=== PATIENT | male | born 1960 | race Caucasian/White ===

== ENCOUNTER → 2018-01-18 | Outpatient (CLI) | payer BC ==
[~2018-01-18] MED LIST: AMLO10TA4 PO; ASP81TEC PO; B 12; DCS100C PO; FAMO-106 PO; FAMO20TA5 PO; FLC1T PO; FOLI0.4T2 PO; HYDR-34 PO; LISINOPRIL; LVT.05T PO; METH4TAB PO; MTP100TCR PO; Metoprolol Succinate PO; NO HOME MEDS; OXYCODONE; VALP250C PO; VITA1TAB16 PO
--- NOTE | 2018-01-18 13:06 | Diagnostic Imaging Report ---
PROCEDURE: CT abdomen and pelvis without contrast. TECHNIQUE: Multiple contiguous axial images were obtained through the abdomen and pelvis without the use of intravenous contrast. INDICATION: Abdominal distention with elevated liver function test. COMPARISON: CT abdomen and pelvis of 07/17/14. FINDINGS: Evaluation of the abdominal viscera is mildly limited without contrast. Lower chest: There are multiple round pulmonary nodules of varying size within the lung bases most compatible with metastases. Peritoneum: A small volume of complex fluid is present throughout the abdomen. Additionally, there are multiple soft tissue peritoneal implants indicative of peritoneal carcinomatosis. Liver and biliary system: There are numerous hypodensities throughout the liver that are all new and too numerous to count. These are most compatible with extensive hepatic metastatic disease. The gallbladder is normal. No biliary duct dilation. Spleen and Pancreas: Spleen is normal. Unchanged marked diffuse dilation of the pancreatic duct. Calcifications of the parenchyma of the pancreas are also unchanged and likely due to chronic pancreatitis. Adrenals: Normal. tract: No renal or ureteral calculi. No obstructive uropathy. Prostate is not enlarged. GI tract: Stomach is decompressed. No bowel obstruction. No pericolonic inflammatory changes. The majority of the colon is decompressed and there is no discrete focal wall thickening, though colonic mass could be obscured on this exam. Vasculature and Lymph nodes: Multiple enlarged upper abdominal lymph nodes are present. This includes lymphadenopathy in the araseli hepatis, celiac axis, superior mesenteric axis and along the retroperitoneum. The dominant lymph node at the level of the celiac axis measures 2.2 x 2.4 cm. Musculoskeletal: No concerning osseous lesion. IMPRESSION: 1. Metastatic disease within the lower chest and abdomen. This includes extensive liver metastases, peritoneal carcinomatosis and pulmonary nodules. The most likely source is from the GI tract or pancreas. Multifocal and metastatic hepatocellular carcinoma could potentially have this appearance as well. However, biopsy will be required for definitive diagnosis. 2. Changes of chronic pancreatitis are stable since 07/17/2014. Findings were discussed with Deepak Junior by Dr. Acosta Amador at 12:57 PM on 01/18/2018. Dictated by: Dictated on workstation # [id number]
== END ==
LOC: RAD 10:42
PROVIDERS: ATTEND Nurse Practitioner Family
DX: C78.7 Secondary malignant neoplasm of liver and intrahepatic bile duct (principal); C80.1 Malignant (primary) neoplasm, unspecified; R91.8 Other nonspecific abnormal finding of lung field; K86.1 Other chronic pancreatitis
CPT/HCPCS: 74176

== ENCOUNTER 2018-01-29 06:52 | Outpatient (CLI) | payer BC ==
[2018-01-29] VITALS (8 sets, daily range): BP systolic 135–151; BP diastolic 75–89
[~2018-01-29] VITALS: Ht 182.9 cm; Wt 70.5 kg
[2018-01-29] MEDS ORDERED: LIDOCAINE 1% INJ 20 ML 20 ML VIAL ONE (07:20)
[2018-01-29] MEDS ORDERED: LIDOCAINE 1% INJ 20 ML 20 ML VIAL INJ ONE (07:30)
[2018-01-29 07:36] LABS: BASOPHILS # (AUTO) 0.1 10^3/uL (0.0-0.1); BASOPHILS % (AUTO) 1 % (0-10); EOSINOPHILS # (AUTO) 0.1 10^3/uL (0.0-0.3); EOSINOPHILS % (AUTO) 1 % (0-10); HEMATOCRIT 31 % (40-54); HEMOGLOBIN 11.3 G/DL (13.3-17.7); LYMPHOCYTES # (AUTO) 0.7 X 10^3 (1.0-4.0); LYMPHOCYTES % (AUTO) 7 % (12-44); MEAN CORPUSCULAR HEMOGLOBIN 29 PG (25-34); MEAN CORPUSCULAR HGB CONC 36 G/DL (32-36); MEAN CORPUSCULAR VOLUME 81 FL (80-99); MEAN PLATELET VOLUME 9.9 FL (7.4-10.4); MONOCYTES # (AUTO) 1.7 X 10^3 (0.0-1.0); MONOCYTES % (AUTO) 15 % (0-12); NEUTROPHILS # (AUTO) 8.4 X 10^3 (1.8-7.8); NEUTROPHILS % (AUTO) 77 % (42-75); PLATELET COUNT 579 10^3/uL (130-400); RED BLOOD COUNT 3.84 10^6/uL (4.35-5.85)
[2018-01-29 07:47] LABS: INR 1.2 (0.8-1.4); PROTHROMBIN TIME PATIENT 15.6 SEC (12.2-14.7)
[2018-01-29 08:27] LABS: ANISOCYTOSIS SLIGHT; BAND NEUTROPHILS 0 %; BASOPHILS % (MANUAL) 1 %; EOSINOPHILS % (MANUAL) 0 %; LYMPHOCYTES % (MANUAL) 7 %; MONOCYTES % (MANUAL) 15 %; NEUTROPHILS % (MANUAL) 77 %
[2018-01-29] MEDS ORDERED: HYDROcodone/APAP 5 MG/325 MG (LORTAB) TAB PO PRN (08:30)
--- NOTE | 2018-01-29 08:55 | Pre-Procedure Progress Note ---
Pre-Procedure Progress Note H&P Reviewed The H&P was reviewed, patient examined and no changes noted. Date H&P Reviewed: Jan 29, 2018 Time H&P Reviewed: 08:00 Pre-Procedure Diagnosis: Liver masses LAURA HARTLEY MD Jan 29, 2018 08:55
--- NOTE | 2018-01-29 09:02 | Diagnostic Imaging Report ---
INDICATION: Multiple liver masses. Patient presents for CT-guided biopsy. Patient was brought to the CT suite, placed on the table in the supine position. Axial imaging through the abdomen was performed to evaluate appropriate entry site. The skin of the midline anterior abdomen was prepped and draped in usual sterile fashion. Small amount of 1% lidocaine was utilized for local anesthesia. An 18-gauge coaxial Temno needle was advanced into the left lobe of the liver. 3-4 core biopsies were obtained. The needle was then repositioned and placed in different spot in the left lobe more midline and 3-4 additional core biopsies were obtained. Needle was withdrawn and hemostasis was obtained using manual compression. Patient tolerated the procedure well and left the department in stable condition. IMPRESSION: Successful CT-guided core biopsy of multiple left lobe liver masses. Pathology results are currently pending. Dictated by: Dictated on workstation # [id number]
== END 2018-01-29 10:25 | disposition home or self-care (01) ==
LOC: SDC 06:52
PROVIDERS: ATTEND Surgery
DX: C22.8 Malignant neoplasm of liver, primary, unspecified as to type (principal); R14.0 Abdominal distension (gaseous); R53.83 Other fatigue; I10 Essential (primary) hypertension; Z87.891 Personal history of nicotine dependence
CPT/HCPCS: 36415; 77012; 85007; 85027; 85610; 85730

== ENCOUNTER → 2018-02-05 | Outpatient (CLI) | payer BC | LOC: LAB 15:33 | PROVIDERS: ATTEND Surgery | DX: C22.8 Malignant neoplasm of liver, primary, unspecified as to type (principal) | CPT/HCPCS: 36415; 82105 ==

== ENCOUNTER 2018-02-08 10:03 | Outpatient (RCR) | payer BC ==
[2018-02-17] MEDS ORDERED: morphine INJ 10 MG/ML 1ML (SYR OR VIAL) ONE (11:11)
[2018-02-17] MEDS ORDERED: HYDROmorphone 2 MG/ML VIAL (DILAUDID) ONE (11:41)
[2018-02-22] MEDS ORDERED: HYDR-3812 PO (19:46)
[2018-02-22] MEDS ORDERED: ALPR0.254 PO (19:46)
[2018-02-23] MEDS ORDERED: AMLO10TA6 PO (10:21)
[2018-02-23] MEDS ORDERED: BUDE10.2 IH (10:21)
[2018-02-23] MEDS ORDERED: DOCU-143 PO (10:21)
[2018-02-23] MEDS ORDERED: ZOLP5TAB PO (10:21)
[2018-02-23] MEDS ORDERED: SORA200T PO (10:34)
[2018-03-03] MEDS ORDERED: HYDR-3812 PO (09:30)
[2018-03-03] MEDS ORDERED: LORA2ORA PO (09:30)
[2018-03-03] MEDS ORDERED: LORA0.5T PO (09:30)
[2018-03-03] MEDS ORDERED: MORP100S3 PO (09:30)
== END 2018-02-26 | disposition home or self-care (01) ==
LOC: ONC 10:03
PROVIDERS: ATTEND Internal Medicine Hematology & Oncology
DX: C80.0 Disseminated malignant neoplasm, unspecified (principal); C78.00 Secondary malignant neoplasm of unspecified lung; C78.7 Secondary malignant neoplasm of liver and intrahepatic bile duct; C78.6 Secondary malignant neoplasm of retroperitoneum and peritoneum; K86.1 Other chronic pancreatitis; F10.20 Alcohol dependence, uncomplicated; I10 Essential (primary) hypertension; F41.9 Anxiety disorder, unspecified
CPT/HCPCS: 99214

== ENCOUNTER 2018-02-09 15:19 | Emergency (ER) | payer BC ==
[~2018-02-09] VITALS: Ht 182.9 cm; Wt 77.1 kg
--- OUTSIDE RECORDS SUMMARY | 2018-02-09 15:25 | XMS REPORT | Continuity of Care Document ---
Author Author [facility] Organization [facility] Address Unknown Phone Unavailable Allergies Active Description Code Type Severity Reaction Onset Reported/Identified Relationship to Patient Clinical Status Yes No Known Drug Allergies [id number] Drug Allergy Unknown N/A 01/23/2010 Medications There is no data. Problems Date Dx Coded Attending Type Code Diagnosis Diagnosed By 07/18/2014 HEIDI MEDELLIN, LOU Marquez Ot 276.1 07/18/2014 HEIDI MEDELLIN, LOU Marquez Ot 305.01 07/18/2014 HEIDI MEDELLIN, LOU Marquez Ot 305.1 07/18/2014 HEIDI MEDELLIN, LOU Marquez Ot 401.9 07/18/2014 HEIDI MEDELLIN, LOU Marquez Ot 577.1 07/18/2014 HEIDI MEDELLIN, LOU K Ot 276.1 07/18/2014 HEIDI MEDELLIN, LOU K Ot 305.01 07/18/2014 HEIDI MEDELLIN, LOU K Ot 305.1 07/18/2014 HEIDI MEDELLIN, LOU K Ot 401.9 07/18/2014 HEIDI MEDELLIN, LOU Marquez Ot 577.1 07/19/2014 HEIDI MEDELLIN, LOU K Ot 276.1 07/19/2014 HEIDI MEDELLIN, LOU K Ot 305.01 07/19/2014 HEIDI MEDELLIN, LOU K Ot 305.1 07/19/2014 HEIDI MEDELLIN, LOU K Ot 401.9 07/19/2014 HEIDI MEDELLIN, LOU K Ot 577.0 07/19/2014 HEIDI MEDELLIN, LOU K Ot 577.1 10/28/2014 ROSEANNA RAE METAL FURRER Ot 401.9 10/28/2014 ROSEANNA RAE METAL FURRER Ot 995.1 10/28/2014 ROSEANNA RAE METAL FURRER Ot V58.69 01/18/2018 CHELO HAMMOND METAL FURRER Ot C78.7 SECONDARY MALIG NEOPLASM OF LIVER AND IN 01/18/2018 CHELO HAMMOND METAL FURRER Ot C80.1 MALIGNANT (PRIMARY) NEOPLASM, UNSPECIFIE 01/18/2018 CHELO HAMMODN METAL FURRER Ot K86.1 OTHER CHRONIC PANCREATITIS 01/18/2018 HAMMONDCHELO SKY L METAL FURRER Ot R91.8 OTHER NONSPECIFIC ABNORMAL FINDING OF MP 01/18/2018 CHELO HAMMOND METAL FURRER Ot C78.7 SECONDARY MALIG NEOPLASM OF LIVER AND IN 01/18/2018 CHELO HAMMOND L METAL FURRER Ot C80.1 MALIGNANT (PRIMARY) NEOPLASM, UNSPECIFIE 01/18/2018 HAMMONDCHELO SKY L METAL FURRER Ot K86.1 OTHER CHRONIC PANCREATITIS 01/18/2018 CHELO HAMMOND L METAL FURRER Ot R91.8 OTHER NONSPECIFIC ABNORMAL FINDING OF MP 01/26/2018 CHELO HAMMOND METAL FURRER Ot C78.7 SECONDARY MALIG NEOPLASM OF LIVER AND IN 01/26/2018 CHELO HAMMOND METAL FURRER Ot C80.1 MALIGNANT (PRIMARY) NEOPLASM, UNSPECIFIE 01/26/2018 CHELO HAMMOND L METAL FURRER Ot K86.1 OTHER CHRONIC PANCREATITIS 01/26/2018 CHELO HAMMOND L METAL FURRER Ot R91.8 OTHER NONSPECIFIC ABNORMAL FINDING OF MP Procedures There is no data. Results Test Result Range Complete blood count (CBC) with automated white blood cell (WBC) differential - 01/29/18 07:30 Blood leukocytes automated count (number/volume) 11.0 10*3/uL 4.3-11.0 Blood erythrocytes automated count (number/volume) 3.84 10*6/uL 4.35-5.85 Venous blood hemoglobin measurement (mass/volume) 11.3 g/dL 13.3-17.7 Blood hematocrit (volume fraction) 31 % 40-54 Automated erythrocyte mean corpuscular volume 81 [foz_us] 80-99 Automated erythrocyte mean corpuscular hemoglobin (mass per erythrocyte) 29 pg 25-34 Automated erythrocyte mean corpuscular hemoglobin concentration measurement ( mass/volume) 36 g/dL 32-36 Automated erythrocyte distribution width ratio 17.0 % 10.0-14.5 Automated blood platelet count (count/volume) 579 10*3/uL 130-400 Automated blood platelet mean volume measurement 9.9 [foz_us] 7.4-10.4 Automated blood neutrophils/100 leukocytes 77 % 42-75 Automated blood lymphocytes/100 leukocytes 7 % 12-44 Blood monocytes/100 leukocytes 15 % 0-12 Automated blood eosinophils/100 leukocytes 1 % 0-10 Automated blood basophils/100 leukocytes 1 % 0-10 Blood neutrophils automated count (number/volume) 8.4 10*3 1.8-7.8 Blood lymphocytes automated count (number/volume) 0.7 10*3 1.0-4.0 Blood monocytes automated count (number/volume) 1.7 10*3 0.0-1.0 Automated eosinophil count 0.1 10*3/uL 0.0-0.3 Automated blood basophil count (count/volume) 0.1 10*3/uL 0.0-0.1 PT panel in platelet poor plasma by coagulation assay - 01/29/18 07:30 Prothrombin time (PT) in platelet poor plasma by coagulation assay 15.6 s 12.2-14.7 INR in platelet poor plasma or blood by coagulation assay 1.2 0.8-1.4 Activated partial thromboplastin time (aPTT) in platelet poor plasma bycoagulation assay - 01/29/18 07:30 Activated partial thromboplastin time (aPTT) in platelet poor plasma bycoagulation assay 34 s 24-35 Blood manual differential performed detection - 01/29/18 07:30 Blood monocytes/100 leukocytes 15 % NRG Manual blood segmented neutrophils/100 leukocytes 77 % NRG Blood band neutrophils/100 leukocytes 0 % NRG Manual blood lymphocytes/100 leukocytes 7 % NRG Manual eosinophils/100 leukocytes in nose 0 % NRG Manual blood basophils/100 leukocytes 1 % NRG Blood anisocytosis detection by light microscopy SLIGHT NRG Encounters ACCT No. Visit Date/Time Discharge Status Pt. Type Provider Facility Loc./Unit Complaint [id number] 01/28/2018 08:15:00 01/28/2018 23:59:59 CLS Preadmit SOHAM ARIAS DO [facility] SDC LIVER MASS,ABD DISTENSION [id number] 01/18/2018 10:42:00 01/18/2018 23:59:59 CLS Outpatient CHELO HAMMOND APRN [facility] RAD SEVERE ABD DISTENTION, ABD PAIN [id number] 05/13/2016 08:22:00 05/13/2016 23:59:59 CLS Outpatient BEVERLY KENNEDY [facility] QUICK COUGH/SOA [id number] 10/28/2014 12:34:00 10/28/2014 14:01:00 DIS Emergency ROSEANNA RAE APRN [facility] ER [id number] 07/17/2014 19:15:00 07/19/2014 11:26:00 DIS Inpatient HEIDI MEDELLIN, LOU Marquez [facility] [address] [id number] 07/03/2013 14:50:00 07/06/2013 13:00:00 DIS Inpatient [id number] 02/06/2016 13:51:11 02/06/2016 23:59:59 CLS Outpatient
--- OUTSIDE RECORDS SUMMARY | 2018-02-09 15:25 | XMS REPORT | Encounter Summary ---
Author Author [facility] Organization [facility] Address Unknown Phone Unavailable Care Team Providers Care Route Agent Name Role Phone PCP Unavailable Encounter Details Date Type Department Care Team Description 02/08/2018 Orders Only [facility] Nita Gonzalez, Liver mass (Primary Dx) [facility] [address] [place] [address] [place] [address] [phone] Social History Tobacco Use Types Packs/Day Years Used Date Never Assessed Sex Assigned at Date Recorded Not on file as of this encounter Plan of Treatment Name Priority Associated Diagnoses Order Schedule CBC AND DIFF Routine Liver mass Expected: 02/15/2018 (Approximate), Expires: 02/08/2019 COMPREHENSIVE METABOLIC PANEL Routine Liver mass Expected: 02/08/2018, Expires: 02/08/2019 PROTIME INR (PT) Routine Liver mass Expected: 02/15/2018 (Approximate), Expires: 02/08/2019 CA19.9 Routine Liver mass Expected: 02/15/2018 (Approximate), Expires: 02/08/2019 CEA(CARCINOEMBRYONIC AG) Routine Liver mass Expected: 02/15/2018 (Approximate), Expires: 02/08/2019 MAGNESIUM Routine Liver mass Expected: 02/15/2018 (Approximate), Expires: 02/08/2019 as of this encounter Visit Diagnoses Diagnosis Liver mass - Primary Unspecified disorder of liver
--- OUTSIDE RECORDS SUMMARY | 2018-02-09 15:25 | XMS REPORT | Clinical Summary ---
Author Author [facility] Organization [facility] Address Unknown Phone Unavailable Care Team Providers Care General Farmer Name Role Phone No Pcp, Na PCP Unavailable Source Comments Some departments are not documenting in the electronic medical record. If you do not see the information that you expected, contact Release of Information in the Health Information Management department at [phone] for further assistance in locating additional records.[facility] Allergies Not on File Current Medications Not on file Active Problems Not on file Encounters Date Type Specialty Care Team Description 02/08/2018 Orders Only Oncology Nita Gonzalez, Liver mass ( Primary Dx) 02/08/2018 Telephone Oncology Preeti Blancas, RN Appointment from Last 3 Months Social History Tobacco Use Types Packs/Day Years Used Date Never Assessed Sex Assigned at Date Recorded Not on file Last Filed Vital Signs Not on file Plan of Treatment Health Maintenance Due Date Last Done Comments HEPATITIS C SCREENING 1961 PHYSICAL (COMPREHENSIVE) 1968 EXAM PERTUSSIS VACCINE 1972 HIV SCREENING 1976 TETANUS VACCINE 1978 COLORECTAL CANCER 2011 SCREENING SHINGLES RECOMBINANT 2011 VACCINE (1 of 2) INFLUENZA VACCINE 03/29/2018 Results Not on filefrom Last 3 Months
--- OUTSIDE RECORDS SUMMARY | 2018-02-09 15:25 | XMS REPORT | CCD ---
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 Name Role Phone PP Unavailable CCM Unavailable Summary Purpose Interface Exchange Insurance Providers Payer name Policy type / Coverage type Covered libertarian ID Effective Begin Date Effective End Date [employer] Commercial Insurance [id number] Unknown Unknown Family history Mother Diagnosis Age At Onset Cancer Unknown Social History Social History Element Codes Description Effective Dates Marital status Unknown Mary Jane 02/11/2016 Number of children Unknown 0 02/11/[address]: 979031636 Currently uses smokeless tobacco he is interested in quitting-used to smoke cigarettes-quit in 2013-04/30 pack/ day x 20 years 02/11/[address]: 790988 Currently drinks alcohol 2-3 beers per day 02/11/2016 Allergies, Adverse Reactions, Alerts Substance Reaction Codes Entered Date Inactivated Date Status ACETAMINOPHEN nausea Unknown 02/11/2016 No Inactive Date Active Past Medical History Illness Codes Condition Status Onset Date Resolved Date Essential (primary) hypertension ICD-9: 401.9 ICD-10: I10 Active 03/20/2016 Unknown Right lower quadrant pain ICD-9: 789.03 ICD-10: R10.31 Active 03/20/2016 Unknown Right upper quadrant pain ICD-9: 789.01 ICD-10: R10.11 Active 03/20/2016 Unknown Allergies Unknown Active 02/11/2016 Unknown Hypertension Unknown Active 02/11/2016 Unknown Pancreatitis Unknown Resolved 02/11/2016 Unknown Problems Condition Codes Effective Dates Condition Status Essential (primary) hypertension ICD-9: 401.9 ICD-10: I10 03/20/2016 Active Right lower quadrant pain ICD-9: 789.03 ICD-10: R10.31 03/20/2016 Active Right upper quadrant pain ICD-9: 789.01 ICD-10: R10.11 03/20/2016 Active Allergies Unknown 02/11/2016 Active Hypertension Unknown 02/11/2016 Active Pancreatitis Unknown 02/11/2016 Resolved Medications Medication Codes Instructions Start Date Stop Date Status Fill Instructions amlodipine 5 mg tablet RxNorm: 560088 Tablet(s) TAKE 1 TABLET BY MOUTH EVERY DAY 07/27/2017 07/21/2018 Active amlodipine 5 mg tablet RxNorm: 353608 TAKE 1 TABLET BY MOUTH EVERY DAY 01/06/2017 07/26/2017 Inactive oxycodone 5 mg tablet RxNorm: 1237419 1 Tablet(s) PO qid prn No Stop Date Active amlodipine 5 mg tablet RxNorm: 790133 1 Tablet(s) PO daily 01/05/2017 Inactive Medication Administered No Medication Administered data Immunizations No Immunization data Assessments Condition Codes Effective Dates Right upper quadrant pain ICD-10: R10.11 ICD-9: 789.01 03/21/2016 Essential (primary) hypertension ICD-10: I10 ICD-9: 401.9 03/21/2016 Right lower quadrant pain ICD-10: R10.31 ICD-9: 789.03 03/21/2016 Reason For Visit Reason For Visit Effective Dates Notes abdominal pain 03/21/2016 hypertension 02/11/2016 Results Observation Observation Code Item Item Code Result Date Comp Metabolic Rzn490 NA 130 mEq/L 03/21/2016 Comp Metabolic Qft003 K 4.2 mEq/L 03/21/2016 Comp Metabolic Ubl205 CL 93 mEq/L 03/21/2016 Comp Metabolic Chi333 CO2 29.0 mEq/L 03/21/2016 Comp Metabolic Exj965 ANION GAP 12 03/21/2016 Comp Metabolic Uei611 GLUCOSE 100 mg/dL 03/21/2016 Comp Metabolic Uvj497 Creat 0.6 mg/dL 03/21/2016 Comp Metabolic Xzl602 eGFR 161 ml/min/1.73m2 03/21/2016 Comp Metabolic Wxv881 BUN 5 mg/dL 03/21/2016 Comp Metabolic Jct574 B/C Ratio 8.9 Ratio 03/21/2016 Comp Metabolic Loz913 CALCIUM 9.2 mg/dL 03/21/2016 Comp Metabolic Csr438 ALK PHOS 56 U/L 03/21/2016 Comp Metabolic Yxl764 AST(SGOT) 27 U/L 03/21/2016 Comp Metabolic Miz017 ALT(SGPT) 22 U/L 03/21/2016 Comp Metabolic Xsw740 BILI T 0.8 mg/dL 03/21/2016 Comp Metabolic Vqe812 ALBUMIN 4.6 g/dL 03/21/2016 Comp Metabolic Vng001 TPRO 7.9 g/dL 03/21/2016 Comp Metabolic Ttb474 GLOB 3.3 g/dL 03/21/2016 Comp Metabolic Qid266 A/G Ratio 1.4 Ratio 03/21/2016 Comp Metabolic Mlr475 Osmo 258 mOsmo 03/21/2016 Lipase Lcg641 LIPASE 147 U/L 03/21/2016 Cbc With Differential Ord2 WBC 5.37 K/ul 03/21/2016 Cbc With Differential Ord2 RBC 4.09 M/ul 03/21/2016 Cbc With Differential Ord2 HGB 12.8 g/dl 03/21/2016 Cbc With Differential Ord2 HCT 37.7 % 03/21/2016 Cbc With Differential Ord2 Neut% 65.2 % 03/21/2016 Cbc With Differential Ord2 MCV 92.2 fl 03/21/2016 Cbc With Differential Ord2 Lymph% 17.9 % 03/21/2016 Cbc With Differential Ord2 MCH 31.3 pg 03/21/2016 Cbc With Differential Ord2 Roosevelt% 12.5 % 03/21/2016 Cbc With Differential Ord2 MCHC 34.0 pg 03/21/2016 Cbc With Differential Ord2 Eos% 3.7 % 03/21/2016 Cbc With Differential Ord2 PLT 311 K/ul 03/21/2016 Cbc With Differential Ord2 Baso% 0.7 % 03/21/2016 Cbc With Differential Ord2 Neut ABS# 3.50 K/ul 03/21/2016 Cbc With Differential Ord2 RDW 13.6 % 03/21/2016 Cbc With Differential Ord2 Lymph ABS# 0.96 K/ul 03/21/2016 Cbc With Differential Ord2 Roosevelt ABS# 0.7 K/ul 03/21/2016 Cbc With Differential Ord2 Eos ABS# 0.2 K/ul 03/21/2016 Cbc With Differential Ord2 Baso ABS# 0.0 K/ul 03/21/2016 Amylase Ord34 AMYLASE 77 U/L 03/21/2016 Review of Systems System Result Effective Dates Constitutional recent illness 03/21/2016 Constitutional No anorexia 03/21/2016 Constitutional No night sweats 2015 Constitutional No chills 03/21/2016 Constitutional No diaphoresis 03/21/2016 Constitutional fatigue 03/21/2016 Constitutional insomnia 03/21/2016 Constitutional No fever 03/21/2016 Constitutional No malaise 03/21/2016 Constitutional No weight loss 03/21/2016 Constitutional No weight gain 03/21/2016 Eyes No eye discharge 03/21/2016 Eyes No eye erythema 03/21/2016 Ears/Nose/Throat/Neck No dizziness 2015 Ears/Nose/Throat/Neck No headache 2015 Cardiovascular No chest pain/pressure Cardiovascular No dyspnea 03/21/2016 Respiratory No productive sputum 2015 Respiratory No cough 03/21/2016 Gastrointestinal abdominal pain 2015 Ears/Nose/Throat/Neck nasal discharge Ears/Nose/Throat/Neck nasal allergies Gastrointestinal No nausea 03/21/2016 Gastrointestinal No vomiting 03/21/2016 Gastrointestinal No constipation 2015 Gastrointestinal No diarrhea 03/21/2016 Genitourinary/Nephrology No dysuria 03/21 Musculoskeletal No joint complaint 2015 Dermatologic No rash 03/21/2016 Neurologic No alteration of consciousness 03/21/2016 Constitutional No recent illness 2015 Constitutional No night sweats 2015 Constitutional No anorexia 02/11/2016 Constitutional No chills 02/11/2016 Constitutional No diaphoresis 02/11/2016 Constitutional No fatigue 02/11/2016 Constitutional No fever 02/11/2016 Constitutional No insomnia 02/11/2016 Constitutional No malaise 02/11/2016 Constitutional No weight loss 02/11/2016 Constitutional No weight gain 02/11/2016 Eyes No eye erythema 02/11/2016 Eyes No eye discharge 02/11/2016 Ears/Nose/Throat/Neck No dizziness 2015 Ears/Nose/Throat/Neck No headache 2015 Ears/Nose/Throat/Neck nasal allergies Ears/Nose/Throat/Neck nasal discharge Cardiovascular No chest pain/pressure Cardiovascular No dyspnea 02/11/2016 Cardiovascular No edema 02/11/2016 Respiratory No productive sputum 2015 Respiratory No chest congestion 2015 Respiratory cough 02/11/2016 Respiratory No cigarette smoking 2015 Respiratory No chest tightness 2015 Gastrointestinal No abdominal pain 2015 Gastrointestinal No diarrhea 02/11/2016 Gastrointestinal No constipation 2015 Genitourinary/Nephrology No dysuria 02/10 Musculoskeletal No joint complaint 2015 Dermatologic No rash 02/11/2016 Dermatologic No sores 02/11/2016 Neurologic No alteration of consciousness 02/11/2016 Psychiatric anxiety 02/11/2016 Psychiatric No depression 02/11/2016 Endocrine No dry or coarse skin 2015 Hematologic/Lymphatic No abnormal ecchymoses 02/11/2016 Physical Exam Exam Name System Name Item Name Status Result Effective Dates Notes Full Exam - General 1994 Constitutional general appearance Overall: well developed 03/21/2016 None Full Exam - General 1994 Constitutional general appearance Overall: in no acute distress 03/21/2016 None Full Exam - General 1994 Constitutional general appearance Overall: well nourished 03/21/2016 None Full Exam - General 1994 Eyes conjunctiva /eyelids Overall: conjunctiva clear 03/21/2016 None Full Exam - General 1994 Eyes pupils and irises Overall: pupils equal, round, reactive to light and accomodation 03/21/2016 None Full Exam - General 1994 Ears/Nose/Throat otoscopic exam Overall: external auditory canals clear 03/21/2016 None Full Exam - General 1994 Ears/Nose/Throat otoscopic exam Overall: tympanic membranes clear 03/21/2016 None Full Exam - General 1994 Ears/Nose/Throat oral cavity/pharynx/larynx Overall: oral mucosa clear 03/21/2016 None Full Exam - General 1994 Respiratory auscultation Overall: breath sounds clear bilaterally 03/21/2016 None Full Exam - General 1994 Respiratory respiratory effort/rhythm Overall: no retractions 03/21/2016 None Full Exam - General 1994 Respiratory respiratory effort/rhythm Overall: normal rate 03/21/2016 None Full Exam - General 1994 Cardiovascular auscultation of heart Overall: regular rate 03/21/2016 None Full Exam - General 1994 Cardiovascular auscultation of heart Overall: normal heart sounds 03/21/2016 None Full Exam - General 1994 Lymphatic neck nodes Overall: anterior cervical chain benign 03/21/2016 None Full Exam - General 1994 Lymphatic neck nodes Overall: posterior cervical chain benign 03/21/2016 None Full Exam - General 1994 Musculoskeletal gait and station Overall: normal gait 03/21/2016 None Full Exam - General 1994 Musculoskeletal gait and station Overall: normal station 03/21/2016 None Full Exam - General 1994 Musculoskeletal head and neck Overall: head atraumatic 03/21/2016 None Full Exam - General 1994 Integument inspection of skin Overall: few scattered moles, no gross abnormalities 03/21/2016 None Full Exam - General 1994 Neurologic cranial nerves Overall: crainial nerves 2 - 12 grossly intact 03/21/2016 None Full Exam - General 1994 Psychiatric orientation/consciousness Overall: oriented to person, place and time 03/21/2016 None Full Exam - General 1994 Abdomen abdominal exam Contour: rounded 03/21/2016 None Full Exam - General 1994 Abdomen abdominal exam Overall: normal bowel sounds 03/21/2016 None Full Exam - General 1994 Abdomen abdominal exam Upper quadrant: tender to palpation 03/21/2016 None Full Exam - General 1994 Abdomen abdominal exam Lower quadrant: tender to palpation 03/21/2016 None Full Exam - General 1994 Abdomen abdominal exam Epigastric: tender to palpation 03/21/2016 None Full Exam - General 1994 Constitutional general appearance Overall: well developed 02/11/2016 None Full Exam - General 1994 Constitutional general appearance Overall: in no acute distress 02/11/2016 None Full Exam - General 1994 Constitutional general appearance Overall: well nourished 02/11/2016 None Full Exam - General 1994 Psychiatric orientation/consciousness Overall: oriented to person, place and time 02/11/2016 None Full Exam - General 1994 Neurologic cranial nerves Overall: crainial nerves 2 - 12 grossly intact 02/11/2016 None Full Exam - General 1994 Integument inspection of skin Overall: few scattered moles, no gross abnormalities 02/11/2016 None Full Exam - General 1994 Musculoskeletal gait and station Overall: normal gait 02/11/2016 None Full Exam - General 1994 Musculoskeletal gait and station Overall: normal station 02/11/2016 None Full Exam - General 1994 Musculoskeletal head and neck Overall: head atraumatic 02/11/2016 None Full Exam - General 1994 Lymphatic neck nodes Overall: anterior cervical chain benign 02/11/2016 None Full Exam - General 1994 Lymphatic neck nodes Overall: posterior cervical chain benign 02/11/2016 None Full Exam - General 1994 Abdomen abdominal exam Overall: no tenderness 02/11/2016 None Full Exam - General 1994 Abdomen abdominal exam Overall: normal bowel sounds 02/11/2016 None Full Exam - General 1994 Cardiovascular auscultation of heart Overall: regular rate 02/11/2016 None Full Exam - General 1994 Cardiovascular auscultation of heart Overall: normal heart sounds 02/11/2016 None Full Exam - General 1994 Respiratory auscultation Overall: breath sounds clear bilaterally 02/11/2016 None Full Exam - General 1994 Respiratory respiratory effort/rhythm Overall: no retractions 02/11/2016 None Full Exam - General 1994 Respiratory respiratory effort/rhythm Overall: normal rate 02/11/2016 None Full Exam - General 1994 Ears/Nose/Throat otoscopic exam Overall: tympanic membranes clear 02/11/2016 None Full Exam - General 1994 Ears/Nose/Throat otoscopic exam Overall: external auditory canals clear 02/11/2016 None Full Exam - General 1994 Ears/Nose/Throat oral cavity/pharynx/larynx Overall: oral mucosa clear 02/11/2016 None Full Exam - General 1994 Eyes conjunctiva /eyelids Overall: conjunctiva clear 02/11/2016 None Full Exam - General 1994 Eyes pupils and irises Overall: pupils equal, round, reactive to light and accomodation 02/11/2016 None Procedures No Procedures data Vital Signs Date Vital 03/21/2016 Blood Pressure 1: 158/64 Code : 8480-6 BMI: 20.5 Code : 96962-7 Heart Rate 1 : 96 bpm Height: 6' SpO2: 94% Weight: 151 lbs 02/11/2016 Blood Pressure 1: 142/80 Code : 8480-6 BMI: 20.9 Code : 63967-0 Heart Rate 1 : 86 bpm Height: 6' SpO2: 96% Weight: 154 lbs Functional Status No Functional Status data History of Present Illness Symptom Name Status Result Effective Date Notes abdominal pain Location in the RLQ 03/21/2016 None abdominal pain Quality constant 03/21/2016 None abdominal pain Quality sharp 03/21/2016 None abdominal pain Quality aching 03/21/2016 None abdominal pain Onset and Resolution sudden in onset 03/21/2016 None abdominal pain Onset of Symptom 2 days ago 03/21/2016 None abdominal pain Frequency of Episodes increasing 03/21/2016 None abdominal pain Limitation on Activities moderately limits activities 03/21/2016 None hypertension Quality intermittent 02/11/2016 None hypertension Onset and Resolution ongoing 02/11/2016 None hypertension Blood Pressure Values patient checking blood pressure at home - did not bring in readings 02/11/2016 None hypertension Pertinent Findings anxiety 02/11/2016 None hypertension Pertinent Findings has bloody stools 02/11/2016 occasionally- notes after lifiting heavy things at work- rarely happens hypertension Pertinent Findings Denies dizziness 02/11/2016 None hypertension Pertinent Findings Denies dyspnea 02/11/2016 None hypertension Pertinent Findings Denies edema 02/11/2016 None hypertension Alleviating Factors medication 02/11/2016 None hypertension Onset of Symptom during adulthood 02/11/2016 None hypertension Severity not consistently severe symptoms, the symptoms fluctuate from no symptoms to anxiety and headaches 02/11/2016 None hypertension Frequency of Episodes unchanged 02/11/2016 None hypertension Triggers no known associated factors 02/11/2016 None Advance Directives No Advance Directive data Encounters Encounter Performer Location Codes Date ([id number]) 40134 EST. PATIENT, LEVEL IV Diagnosis: Right upper quadrant pain[ICD10: R10.11] Diagnosis: Right lower quadrant pain[ICD10: R10.31] Diagnosis: Essential (primary) hypertension[ICD10: I10] [facility] CPT-4: 98439 03/21/2016 ([id number]) OFFICE VISIT, NEW - LEVEL 3 Diagnosis: Essential (primary) hypertension[ICD10: I10] [facility], [facility] CPT-4: 80604 02/11/2016 Plan of Care Planned Activity Notes Codes Status Date Appointment: Brenda Hunter WPtel: [address] [place], [place] [phone] (30 min) Complex 03/28/2016 Visit Plan: Abdominal pain-suspect pancreatitis-plan to check labs today-NO BEER-clear liquid diet x 48 hours and may start advancing as tolerated if symptoms improved-follow up in 7-10 days or sooner if needed. Patient verbalized understanding of plan. HTN-elevated today-monitor and follow up in 7-10 days for recheck 03/21/2016 Appointment: Brenda Hunter WPtel: [phone] (30 min) Complex 03/21/2016 Patient Education: Patient Medication Summary Completed 03/21/2016 Visit Plan: Hypertension - well controlled - continue with current medications, continue with no added salt diet. Pt has been encouraged to exercise daily. The pt has been advised to call the office if there are any acute concerns about change in blood pressure readings at home. 02/11/2016 Appointment: Brenda Hunter WPtel: [address] [place], [place] [phone] New Patient 02/11/2016 Patient Education: Patient Medication Summary Completed 02/11/2016 Instructions Comment . Hypertension - well controlled - continue with current medications, continue with no added salt diet. Pt has been encouraged to exercise daily. The pt has been advised to call the office if there are any acute concerns about change in blood pressure readings at home. NO BEER !!! CLEAR LIQUID DIET CHECK LABS TODAY . Abdominal pain-suspect pancreatitis-plan to check labs today-NO BEER-clear liquid diet x 48 hours and may start advancing as tolerated if symptoms improved -follow up in 7-10 days or sooner if needed. Patient verbalized understanding of plan. HTN-elevated today-monitor and follow up in 7-10 days for recheck
--- OUTSIDE RECORDS SUMMARY | 2018-02-09 15:25 | XMS REPORT | Encounter Summary ---
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
--- NOTE | 2018-02-09 16:53 | ED GI ---
General Chief Complaint: Abdominal/GI Problems Stated Complaint: BLOATING IN ABD, NEEDS DRAINED Nursing Triage Note: PT ENTERS THE ED VIA WC. PT PRESENTING WITH INCREASED ABDOMINAL DISTENTION AND PAIN AND IS REQUESTING A SECOND OPINION OF HIS DIAGNOSIS FROM [facility] Sepsis Screen: No Definite Risk Source of Information: Patient, Family Exam Limitations: No Limitations History of Present Illness Date Seen by Provider: Feb 09, 2018 Time Seen by Provider: 16:25 Initial Comments Here with report of markedly increasing abdominal distention. Patient has recent history of finding of hepatocellular carcinoma. He has been undergoing different treatments at the cancer center. This appears to be end-stage but he is seeking second opinion and evaluation at [facility]. This is set up for next week. Denies nausea or vomiting. Does report Timing/Duration: 1 Week, Getting Worse Severity/Quality: Moderate, Severe, Other (Fullness) Location: Generalized Abdomen Radiation: No Radiation Activities at Onset: None Modifying Factors: Worsens With Eating, Worsens With Movement; Improves With Resting Associated Symptoms: No Back Pain, No Chest Pain, No Fever/Chills, No Nausea/ Vomiting; Shortness of Air, Weakness Allergies and Home Medications Allergies Coded Allergies: No Known Drug Allergies (Unverified , 01/23/10) Home Medications Amlodipine Besylate 10 Mg Tablet, 0.5 EA PO DAILY Prescribed by: ROSEANNA RAE on 10/28/14 1249 Famotidine 20 Mg Tablet, 1 EACH PO BID Prescribed by: JESUS OTT on 07/19/14 1045 Methylprednisolone 4 Mg/Dose-Pack Tab.ds.pk, 1 PKT PO UD Prescribed by: ROSEANNA RAE on 10/28/14 1257 [Metoprolol Succinate] 50 MG TAB, 50 MG PO DAILY Prescribed by: LOU GORDON on 07/19/14 1013 Patient Home Medication List Home Medication List Reviewed: Yes Review of Systems Constitutional: see HPI; No chills, No fever Respiratory: No Symptoms Reported Cardiovascular: No Symptoms Reported Gastrointestinal: See HPI, Abdomen Distended, Abdominal Pain, Constipated; Denies Diarrhea Genitourinary: No Symptoms Reported Musculoskeletal: No back pain; muscle pain Skin: change in color; No lesions Past Bszexwb-Pgfbst-Ovhcfd Hx Past Med/Social Hx: Reviewed Nursing Past Med/Soc Hx Patient Social History Smoking Status: Former Smoker Recent Foreign Travel: No Contact w/Someone Who Travel: No Recent Infectious Disease Expo: No Recent Hopitalizations: No Immunizations Up To Date Tetanus Booster (TDap): Less than 5yrs Date of Pneumonia Vaccine: Mar 29, 2010 Past Medical History Surgeries: No Respiratory: Yes Pneumonia Cardiac: No Neurological: Yes (FEBRILE SEIZURES) Reproductive Disorders: No Sexually Transmitted Disease: No HIV/AIDS: No Gastrointestinal: Yes Pancreatitis, Gall Bladder Disease Musculoskeletal: No Endocrine: No Hearing Impairment: Hard of Hearing Cancer: No Psychosocial: No Integumentary: No Blood Disorders: No Physical Exam Vital Signs Vital Signs - First Documented 02/09/18 15:30 Temp 98.7 Pulse 110 Resp 20 B/P (MAP) 172/86 (114) Pulse Ox 97 O2 Delivery Nasal Cannula O2 Flow Rate 2.00 Capillary Refill : Less Than 3 Seconds Height/Weight/BMI Height: 6'0" Weight: 170lbs. 8.0oz. 77.948408tk; BMI Method:Actual General Appearance: mild distress, cachetic Neck: full range of motion, supple Respiratory: lungs clear, normal breath sounds Cardiovascular: no murmur, tachycardia Gastrointestinal: non tender, abnormal bowel sounds (hypoactive), distended Extremities: non-tender, pedal edema (3+ bilateral lower extremities) Back: normal inspection, no CVA tenderness, no vertebral tenderness Neurologic/Psychiatric: alert, oriented x 3 Skin: warm/dry, jaundice Progress/Results/Core Measures Results/Orders My Orders Orders - AURELIO HERNANDEZ MD Abdomen Limited [id number] (02/09/18 17:01) Lidocaine 1% Inj 20 Ml (Xylocaine 1% Inj (02/09/18 17:13) Vital Signs/I&O 02/09/18 15:30 Temp 98.7 Pulse 110 Resp 20 B/P (MAP) 172/86 (114) Pulse Ox 97 O2 Delivery Nasal Cannula O2 Flow Rate 2.00 Blood Pressure Mean: 114 Progress Progress Note : Progress Note Seen and evaluated. I did discuss the case with Dr. Hough. He is not requesting any labs and he will come see the patient in the ER and perform paracentesis. We have asked ultrasound to be on standby. 1805: Paracentesis completed by Dr. Hough. Okay for discharge home. Discharged home with return precautions. Patient family verbalized understanding instructions and agreement with plan. Diagnostic Imaging Diagonstic Imaging: Ultrasound Plain Films/CT/US/NM/MRI: abdomen Comments [facility] [place] [place] NAME: [facility]DAL[facility] REC#: [id number] PT STATUS: REG ER : 1960 PHYSICIAN: AURELIO HERNANDEZ MD ADMIT DATE: 02/09/18/ER Draft Date of Exam:02/09/18 US ABDOMEN LIMITED [id number] PROCEDURE: US Abdomen, limited. TECHNIQUE: Multiple real-time grayscale images were obtained over the abdomen in various projections. INDICATION: Ascites. FINDINGS: Ultrasound assistance was provided for Dr. Hough. A pocket of fluid was identified in the left lower quadrant. Reportedly, paracentesis is pending. IMPRESSION: A collection of fluid was localized in the left lower quadrant. Paracentesis is pending. Dictated on workstation # [id number] Dict: 02/09/18 1735 Trans: 02/09/18 1740 [id number] Interpreted by: YUNIOR BOYLE MD Electronically signed by: Departure Impression Primary Impression: Ascites Qualified Codes: R18.0 - Malignant ascites Disposition: HOME, SELF-CARE Condition: Stable Departure-Patient Inst. Decision time for Depature: 18:05 Referrals: PRAKASH JERRY MD (PCP/Family) Primary Care Physician Patient Instructions: Fluid in the Belly (Ascites) (DC) Add. Discharge Instructions: All discharge instructions reviewed with patient and/or family. Voiced understanding. Keep appointment with your next week for recheck and further evaluation at [facility]. Return for worse pain, fever, vomiting, weakness, breathing problems or other concerns as needed. AURELIO HERNANDEZ MD Feb 09, 2018 16:53
[2018-02-09] MEDS ORDERED: LIDOCAINE 1% INJ 20 ML 20 ML VIAL ONE (17:13)
--- NOTE | 2018-02-09 17:41 | Diagnostic Imaging Report ---
PROCEDURE: US Abdomen, limited. TECHNIQUE: Multiple real-time grayscale images were obtained over the abdomen in various projections. INDICATION: Ascites. FINDINGS: Ultrasound assistance was provided for Dr. Hough. A pocket of fluid was identified in the left lower quadrant. Reportedly, paracentesis is pending. IMPRESSION: A collection of fluid was localized in the left lower quadrant. Paracentesis is pending. Dictated by: Dictated on workstation # [id number]
[2018-02-09 18:40] VITALS: BP 151/74
--- NOTE | 2018-02-09 18:48 | Consultation ---
History of Present Illness History of Present Illness Patient Consulted On(vero/time) 02/09/18 18:40 Date Seen by Provider: Feb 09, 2018 Time Seen by Provider: 18:40 History of Present Illness Consult requested by Dr. De Dios for paracentesis. Patient seen and evaluated in ED. 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 Patient has has increased abdominal distention and moderate pain from distention over the last week. Patient having some slight shortness of breath. Not having much of an appetite. Nothing really making things better and nothing he knows of is making things worse. Patient has an appointment at next week for second opinion. Denies n/v fever sweats chills shortness of breath or chest pain. U/s in the ER by me and tech demonstrating ascitic fluid, largest pocket in the left lower quadrant. Allergies and Home Medications Allergies Coded Allergies: No Known Drug Allergies (Unverified , 01/23/10) Home Medications Amlodipine Besylate 10 Mg Tablet, 0.5 EA PO DAILY Prescribed by: ROSEANNA RAE on 10/28/14 1249 Famotidine 20 Mg Tablet, 1 EACH PO BID Prescribed by: JESUS OTT on 07/19/14 1045 Methylprednisolone 4 Mg/Dose-Pack Tab.ds.pk, 1 PKT PO UD Prescribed by: ROSEANNA RAE on 10/28/14 1257 [Metoprolol Succinate] 50 MG TAB, 50 MG PO DAILY Prescribed by: LOU GORDON on 07/19/14 1013 Patient Home Medication List Home Medication List Reviewed: Yes Past Pyemwcl-Wmcnnb-Ucjazc Hx Patient Social History Alcohol Use: Regular Use Recreational Drug Use: No Smoking Status: Former Smoker Recent Foreign Travel: No Contact w/Someone Who Travel: No Recent Infectious Disease Expo: No Recent Hopitalizations: No Immunizations Up To Date Tetanus Booster (TDap): Less than 5yrs Date of Pneumonia Vaccine: Mar 29, 2010 Surgeries History of Surgeries: No Respiratory History of Respiratory Disorde: Yes Respiratory Disorders: Pneumonia Cardiovascular History of Cardiac Disorders: No Neurological History of Neurological Disord: Yes (FEBRILE SEIZURES) Reproductive System Hx Reproductive Disorders: No Sexually Transmitted Disease: No HIV/AIDS: No Gastrointestinal History of Gastrointestinal Di: Yes Gastrointestinal Disorders: Pancreatitis, Gall Bladder Disease Musculoskeletal History of Musculoskeletal Dis: No Endocrine History of Endocrine Disorders: No HEENT Hearing Impairment: Hard of Hearing Cancer History of Cancer: No Psychosocial History of Psychiatric Problem: No Integumentary History of Skin or Integumenta: No Blood Transfusions History of Blood Disorders: No Family Medical History Significant Family History: No Pertinent Family Hx Review of Systems-General Constitutional: see HPI EENTM: no symptoms reported Respiratory: see HPI Cardiovascular: no symptoms reported Gastrointestinal: see HPI Genitourinary: no symptoms reported Musculoskeletal: no symptoms reported Skin: no symptoms reported Psychiatric/Neurological: No Symptoms Reported Physical Exam-General Problems Physical Exam Vital Signs Vital Signs - First Documented 02/09/18 15:30 Temp 98.7 Pulse 110 Resp 20 B/P (MAP) 172/86 (114) Pulse Ox 97 O2 Delivery Nasal Cannula O2 Flow Rate 2.00 Capillary Refill : Less Than 3 Seconds General Appearance: no apparent distress (laying in bed) HEENT: PERRL/EOMI Neck: supple Respiratory: no respiratory distress, no accessory muscle use Cardiovascular: regular rate, rhythm Gastrointestinal: distended, tenderness (diffusely, mass in epigastric portion abdomen and enlarged liver, + fluid wave) Rectal: deferred Back: normal inspection Extremities: non-tender, normal inspection Neurologic/Psychiatric: student life coordinator II-XII nml as tested, no motor/sensory deficits, alert, normal mood/affect, oriented x 3 Skin: warm/dry Lymphatic: no adenopathy Assessment/Plan Assessment/Plan Assessment/Plan 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 Discussed risks and benefits of having u/s guided paracentesis in order to decrease ascites/distention will send for cytology to see if malignant ascites Patient okay to be dc'd home afterward with follow up at and await their recommendations. SOHAM AIRAS DO Feb 09, 2018 18:48
--- NOTE | 2018-02-10 01:17 | OPERATIVE REPORT ---
DATE OF SERVICE: 02/09/2018 PREPROCEDURE DIAGNOSIS: Ascites. POSTPROCEDURE DIAGNOSIS: Ascites. PROCEDURE: Ultrasound-guided paracentesis. SURGEON: Soham Hough DO ANESTHESIA: 1% lidocaine, 5 mL. ESTIMATED BLOOD LOSS: Minimal. COMPLICATIONS: None. INDICATIONS: The patient is a 57-year-old male with recent diagnosis of poorly differentiated carcinoma, likely hepatocellular carcinoma with elevated alpha fetoprotein. The patient developed ascites and over the last week, his abdomen has continued to increase in size and now is causing moderate discomfort that is generalized. The patient was explained risks and benefits of having an ultrasound-guided paracentesis performed. He understands risks and benefits and wishes to proceed. DESCRIPTION OF PROCEDURE: The patient had ultrasound performed of his abdomen, which demonstrated a largest pocket in the left lower quadrant fluid for drainage. The area was then prepped and draped in a sterile fashion. Timeout was performed. A 5 mL of 1% lidocaine was then used to anesthetize the area. An 11 blade scalpel was used to make a small skin incision. Using the safety basis catheter needle, the catheter and needle were advanced through the abdomen until the anabelle-colored fluid was returned. The catheter was then advanced over the needle and the needle was removed. The anabelle-colored fluid was then withdrawn. A total of 3600 mL of fluid was withdrawn. This decreases abdominal distention significantly. The patient was repositioned in a couple of times trying to drain more, but was unsuccessful draining any further. The catheter was then removed. The area was washed and dried and sterile bandage was applied. The patient tolerated the procedure well without any complications. The patient's breathing has significantly improved and abdominal distention and abdominal pain has improved as well. The patient has appointment set up at for a second opinion. The patient encouraged to keep this. Job ID: [id number] DocumentID: [id number] Dictated Date: 02/09/2018 18:58:31 Water Project Manager Date: 02/10/2018 01:16:28 Dictated By: SOHAM HOUGH DO
== END 2018-02-09 17:45 | disposition home or self-care (01) ==
LOC: EDUNIT# 15:19 → ER 15:21
DX: R18.8 Other ascites (principal); Z79.52 Long term (current) use of systemic steroids; Z87.891 Personal history of nicotine dependence; Z87.01 Personal history of pneumonia (recurrent); Z87.448 Personal history of other diseases of urinary system; Z87.19 Personal history of other diseases of the digestive system
CPT/HCPCS: 76705

== ENCOUNTER 2018-02-22 12:29 | Inpatient (IN) | payer BC ==
[~2018-02-22] VITALS: Ht 182.9 cm; Wt 80.3 kg
[2018-02-22 13:46] LABS: BASOPHILS # (AUTO) 0.1 10^3/uL (0.0-0.1); BASOPHILS % (AUTO) 0 % (0-10); EOSINOPHILS % (AUTO) 0 % (0-10); HEMATOCRIT 29 % (40-54); HEMOGLOBIN 9.9 G/DL (13.3-17.7); LYMPHOCYTES # (AUTO) 0.8 X 10^3 (1.0-4.0); LYMPHOCYTES % (AUTO) 4 % (12-44); MEAN CORPUSCULAR HEMOGLOBIN 29 PG (25-34); MEAN CORPUSCULAR HGB CONC 35 G/DL (32-36); MEAN CORPUSCULAR VOLUME 84 FL (80-99); MEAN PLATELET VOLUME 8.9 FL (7.4-10.4); MONOCYTES # (AUTO) 3.2 X 10^3 (0.0-1.0); MONOCYTES % (AUTO) 15 % (0-12); NEUTROPHILS # (AUTO) 17.2 X 10^3 (1.8-7.8); NEUTROPHILS % (AUTO) 81 % (42-75); PLATELET COUNT 542 10^3/uL (130-400); RED BLOOD COUNT 3.38 10^6/uL (4.35-5.85); RED CELL DISTRIBUTION WIDTH 18.1 % (10.0-14.5); WHITE BLOOD COUNT 21.3 10^3/uL (4.3-11.0)
[2018-02-22 13:50] LABS: INR 1.7 (0.8-1.4); PROTHROMBIN TIME PATIENT 19.6 SEC (12.2-14.7)
[2018-02-22 14:02] LABS: ALANINE AMINOTRANSFERASE 33 U/L (0-55); ALBUMIN 2.9 GM/DL (3.2-4.5); ALKALINE PHOSPHATASE 276 U/L (40-136); BILIRUBIN,TOTAL 3.5 MG/DL (0.1-1.0); BUN/CREATININE RATIO 24; CARBON DIOXIDE 23 MMOL/L (21-32); CHLORIDE 79 MMOL/L (98-107); CREATININE SERUM 0.68 MG/DL (0.60-1.30); GFR ESTIMATED > 60; GLUCOSE 110 MG/DL (70-105); POTASSIUM 4.2 MMOL/L (3.6-5.0); TOTAL PROTEIN 6.4 GM/DL (6.4-8.2)
[2018-02-22 14:06] LABS: ANISOCYTOSIS MARKED; BAND NEUTROPHILS 0 %; BASOPHILS % (MANUAL) 0 %; EOSINOPHILS % (MANUAL) 0 %; LYMPHOCYTES % (MANUAL) 9 %; MONOCYTES % (MANUAL) 4 %; NEUTROPHILS % (MANUAL) 87 %
[2018-02-22 14:07] LABS: TARGET CELLS SLIGHT
[2018-02-22 14:16] LABS: SODIUM 112 MMOL/L (135-145)
--- NOTE | 2018-02-22 14:16 | ED General ---
General Chief Complaint: General Problems/Pain Stated Complaint: WEAK,VOMITING,FEVER Nursing Triage Note: PT TO ROOM #1 VIA WC BY ED STAFF. A&OX4. CO PROGRESSIVE WEAKNESS, FEVER/CHILLS, VOMITING, AND SOA. PT REPORTS HE WAS DIAGNOSED WITH LIVER, STOMACH, AND LUNG CANCER X5 WKS AGO AND IS A PT @ [facility]. PT REPORTS HE HAD A PARACENTESIS DONE ON 02/19/18 WHERE 6.5L FLUID WAS REMOVED. PT REPORTS HE IS SCHEDULED TO BEGIN ORAL CHEMO [place]. TOMORROW. PT NOTED TO BE PALE, TACHYCARDIC, AND AFEBRILE. PT REPORTS MINIMAL PAIN OVER PARACENTESIS SITE WITH NO REDNESS , SWELLING, OR DRAINAGE NOTED. Nursing Sepsis Screen: Possible Sepsis Risk History of Present Illness Date Seen by Provider: Feb 22, 2018 Time Seen by Provider: 14:00 Initial Comments Here with report of increasingly weak and possible fever or chills. Has increasing short of air. He has liver cancer with metastasis and is to start chemotherapy soon. Seen at last week and had several liters of fluid removed from the abdomen. It is somewhat distended today but less than on previous visit. States that he feels okay but is increasingly weak. Wanted to make sure he is okay because he has to go back to this week and is due to start chemotherapy tomorrow. Timing/Duration: 1-2 Days, Getting Worse Severity: Moderate Associated Systoms: No Chest Pain; Fever/Chills, Nausea/Vomiting, Shortness of Air, Weakness Allergies and Home Medications Allergies Coded Allergies: No Known Drug Allergies (Unverified , 01/23/10) Home Medications Alprazolam 0.25 Mg Tablet, 0.125-0.25 MG PO HS PRN for ANXIETY, (Reported) Amlodipine Besylate 10 Mg Tablet, 10 MG PO DAILY, (Reported) Budesonide/Formoterol Fumarate 10.2 Gm Hfa.aer.ad, 2 PUFF IH BID, (Reported) Docusate Sodium 100 Mg Capsule, 100 MG PO BID PRN for CONSTIPATION-1ST LINE, ( Reported) Hydrocodone/Acetaminophen 1 Each Tablet, 0.5-1 TAB PO Q4H PRN for PAIN-MODERATE, (Reported) Sorafenib Tosylate 200 Mg Tab, 200 MG PO Q72H, (Reported) HAS NOT STARTED YET; WAITING FOR IT TO ARRIVE Zolpidem Tartrate 5 Mg Tablet, 5 MG PO HS PRN for SLEEP, (Reported) Patient Home Medication List Home Medication List Reviewed: Yes Review of Systems Review of Systems Constitutional: see HPI; No chills; fever, weakness Respiratory: cough, short of breath; No wheezing Cardiovascular: no symptoms reported Gastrointestinal: see HPI; No abdominal pain; nausea, vomiting Genitourinary: no symptoms reported Musculoskeletal: see HPI, muscle weakness; No neck pain Skin: no symptoms reported Psychiatric/Neurological: No Symptoms Reported All Other Systems Reviewed Negative Unless Noted: Yes Past Mxyaqpt-Ztgwsl-Tqbxun Hx Past Med/Social Hx: Reviewed Nursing Past Med/Soc Hx Patient Social History Alcohol Use: Occasionally Uses Recreational Drug Use: No (quit several yrs ago) Smoking Status: Former Smoker Type Used: Cigarettes 2nd Hand Smoke Exposure: No Recent Foreign Travel: No Contact w/Someone Who Travel: No Recent Infectious Disease Expo: No Recent Hopitalizations: No Physical Abuse: No Sexual Abuse: No Immunizations Up To Date Tetanus Booster (TDap): Less than 5yrs Date of Pneumonia Vaccine: Mar 29, 2010 Past Medical History Surgeries: No Respiratory: Yes Pneumonia Cardiac: No Neurological: Yes (FEBRILE SEIZURES) Reproductive Disorders: No Sexually Transmitted Disease: No HIV/AIDS: No Gastrointestinal: Yes Pancreatitis, Gall Bladder Disease Musculoskeletal: No Endocrine: No Hearing Impairment: Hard of Hearing Cancer: Yes Liver, Lung, Stomach SCHEDULED TO BEGIN ORAL CHEMO 02/23/18 Psychosocial: No Nursing Suicide Risk Score: 0 Integumentary: No Blood Disorders: No Family Medical History Reviewed Nursing Family Hx No Pertinent Family Hx Physical Exam-Suspected Sepsis Physical Exam Vital Signs Vital Signs - First Documented 02/22/18 02/22/18 13:05 18:10 Temp 98.2 Pulse 109 Resp 18 B/P (MAP) 153/75 (101) Pulse Ox 94 O2 Delivery Nasal Cannula O2 Flow Rate 2.00 FiO2 21 Capillary Refill : Less Than 3 Seconds Blood Pressure Mean: 101 Height, Weight, BMI Height: 6'0" Weight: 155lbs. 0.0oz. 70.749784dh; 23.1 BMI Method:Stated General Appearance: WD/WN, Chronically ill, Mild Distress (weakness) HEENT: PERRL/EOMI, Pharynx Normal Neck: Non Tender, Supple Respiratory: Crackles, Decreased Breath Sounds Cardiovascular: No Murmur, Tachycardia Gastrointestinal: No No Pulsatile Mass; Non Tender, Soft, Distended; No Guarding; Hepatomegaly Back: Normal Inspection, No CVA Tenderness, No Vertebral Tenderness Extremity: Normal Capillary Refill, Normal Inspection, Normal Range of Motion Neurologic/Psychiatric: Alert, Oriented x3 Skin: normal color, warm/dry Focused Exam Lactate Level 02/22/18 13:10: Lactic Acid Level 2.00 Lactic Acid Level Progress/Results/Core Measures Suspected Sepsis Recent Fever Within 48 Hours: Yes Infection Criteria Present: Suspected New Infection New/Unexplained Altered Menta: No Sepsis Screen: Possible Sepsis Risk SIRS Temperature:98.2 Pulse: 109 Respiratory Rate: 18 Laboratory Tests 02/22/18 13:10: White Blood Count 21.3H 02/23/18 05:25: White Blood Count 21.5H Blood Pressure 153 /75 Mean: 101 02/22/18 13:10: Lactic Acid Level 2.00 Laboratory Tests 02/22/18 13:10: Creatinine 0.68, INR Comment 1.7H, Platelet Count 542H, Total Bilirubin 3.5H 02/23/18 05:25: Creatinine 0.68, Platelet Count 432H, Total Bilirubin 3.7H Results/Orders Lab Results Laboratory Tests Test 02/22/18 13:10 02/23/18 05:25 Range/Units White Blood Count 21.3 H 21.5 H 4.3-11.0 10^3/uL Red Blood Count 3.38 L 2.85 L 4.35-5.85 10^6/uL Hemoglobin 9.9 L 8.8 L 13.3-17.7 G/DL Hematocrit 29 L 24 L 40-54 % Mean Corpuscular Volume 84 84 80-99 FL Mean Corpuscular Hemoglobin 29 31 25-34 PG Mean Corpuscular Hemoglobin Concent 35 37 H 32-36 G/DL Red Cell Distribution Width 18.1 H 17.7 H 10.0-14.5 % Platelet Count 542 H 432 H 130-400 10^3/uL Mean Platelet Volume 8.9 9.0 7.4-10.4 FL Neutrophils (%) (Auto) 81 H 81 H 42-75 % Lymphocytes (%) (Auto) 4 L 7 L 12-44 % Monocytes (%) (Auto) 15 H 11 0-12 % Eosinophils (%) (Auto) 0 1 0-10 % Basophils (%) (Auto) 0 1 0-10 % Neutrophils # (Auto) 17.2 H 17.4 H 1.8-7.8 X 10^3 Lymphocytes # (Auto) 0.8 L 1.4 1.0-4.0 X 10^3 Monocytes # (Auto) 3.2 H 2.4 H 0.0-1.0 X 10^3 Eosinophils # (Auto) 0.0 0.1 0.0-0.3 10^3/uL Basophils # (Auto) 0.1 0.1 0.0-0.1 10^3/uL Neutrophils % (Manual) 87 % Lymphocytes % (Manual) 9 % Monocytes % (Manual) 4 % Eosinophils % (Manual) 0 % Basophils % (Manual) 0 % Band Neutrophils 0 % Anisocytosis MARKED Target Cells SLIGHT Prothrombin Time 19.6 H 12.2-14.7 SEC INR Comment 1.7 H 0.8-1.4 Sodium Level 112 *L 113 *L 135-145 MMOL/L Potassium Level 4.2 4.5 3.6-5.0 MMOL/L Chloride Level 79 L 81 L 98-107 MMOL/L Carbon Dioxide Level 23 20 L 21-32 MMOL/L Anion Gap 10 12 5-14 MMOL/L Blood Urea Nitrogen 16 21 H 7-18 MG/DL Creatinine 0.68 0.68 0.60-1.30 MG/DL Estimat Glomerular Filtration Rate > 60 > 60 BUN/Creatinine Ratio 24 31 Glucose Level 110 H 61 L 70-105 MG/DL Lactic Acid Level 2.00 0.50-2.00 MMOL/L Calcium Level 8.0 L 7.5 L 8.5-10.1 MG/DL Corrected Calcium 8.9 8.6 8.5-10.1 MG/DL Total Bilirubin 3.5 H 3.7 H 0.1-1.0 MG/DL Aspartate Amino Transf (AST/SGOT) 165 H 145 H 5-34 U/L Alanine Aminotransferase (ALT/SGPT) 33 31 0-55 U/L Alkaline Phosphatase 276 H 244 H 40-136 U/L Total Protein 6.4 5.3 L 6.4-8.2 GM/DL Albumin 2.9 L 2.6 L 3.2-4.5 GM/DL Magnesium Level 1.4 L 1.8-2.4 MG/DL My Orders Orders - PALA,AURELIO D MD Lactic Acid Analyzer (02/22/18 14:07) Blood Culture (02/22/18 14:07) Chest Pa/Lat (2 View) (02/22/18 14:07) Ns Iv 1000 Ml (Sodium Chloride 0.9%) (02/22/18 15:00) Piperacillin Sodium/Tazobactam (Zosyn Vi (02/22/18 15:00) Vital Signs/I&O 02/23/18 02/23/18 02/23/18 02/23/18 04:00 05:47 05:47 07:36 Temp 99.0 98.6 Pulse 103 101 96 Resp 20 18 B/P (MAP) 121/56 (77) 126/62 (83) Pulse Ox 94 88 88 99 O2 Delivery Room Air Nasal Cannula Nasal Cannula O2 Flow Rate 2.00 2.00 02/23/18 02/23/18 02/23/18 02/23/18 08:00 11:21 11:51 14:38 Temp 97.3 Pulse 97 Resp 18 B/P (MAP) 124/61 (82) Pulse Ox 93 91 93 93 O2 Delivery Room Air Nasal Cannula Nasal Cannula Nasal Cannula O2 Flow Rate 2.00 2.00 4.00 4.00 Capillary Refill : Less Than 3 Seconds Blood Pressure Mean: 101 Progress Note : Progress Note Seen and evaluated. IV, labs, blood cultures, chest x-ray ordered. Monitor patient. Diagnostic Imaging Diagonstic Imaging: Xray Plain Films/CT/US/NM/MRI: chest Comments VIA [place], [place] NAME: MAGDALENO COPE [facility] REC#: [id number] PT STATUS: REG ER : 1960 PHYSICIAN: AURELIO HERNANDEZ MD ADMIT DATE: 02/22/18/ER Draft Date of Exam:02/22/18 CHEST PA/LAT (2 VIEW) INDICATION: Progressive weakness with fever and chills. TECHNIQUE/COMPARISON: PA and lateral views of the chest were obtained with comparison made to the study of 08/10/2012. FINDINGS: There is bilateral air trapping suggesting probable emphysema. There is moderate blunting of the left costophrenic sulcus, likely due to basilar infiltrate and pleural fluid. There is also increased density in the right perihilar region with suggestion of a nodular background. No definite pneumothorax is appreciated. IMPRESSION: Mild to moderate amount of left pleural fluid with basilar infiltrate. There are scattered subcentimeter nodules in the lungs which are most pronounced in the right perihilar region which may be secondary to metastatic disease. Correlation with CT imaging of the thorax would be of use. Dictated on workstation # [id number] Dict: 02/22/18 1439 Trans: 02/22/18 1449 [id number] Interpreted by: MASTER HESS MD Electronically signed by: Departure Communication (Admissions) Time/Spoke to Admitting Phy: 14:30 Time/Spoke to Consulting Phy: 14:38 Impression Primary Impression: Left lower lobe pneumonia Qualified Codes: J18.1 - Lobar pneumonia, unspecified organism Additional Impressions: Hyponatremia Liver cancer, primary, with metastasis from liver to other site Disposition: ADMITTED INPATIENT Condition: Stable Admissions Decision to Admit Reason: Admit from ER (General) Decision to Admit/Date: Feb 22, 2018 Time/Decision to Admit Time: 14:30 Departure-Patient Inst. Referrals: PRAKASH JERRY MD (PCP/Family) Primary Care Physician AURELIO HERNANDEZ MD Feb 22, 2018 14:16
--- NOTE | 2018-02-22 14:50 | Diagnostic Imaging Report ---
INDICATION: Progressive weakness with fever and chills. TECHNIQUE/COMPARISON: PA and lateral views of the chest were obtained with comparison made to the study of 08/10/2012. FINDINGS: There is bilateral air trapping suggesting probable emphysema. There is moderate blunting of the left costophrenic sulcus, likely due to basilar infiltrate and pleural fluid. There is also increased density in the right perihilar region with suggestion of a nodular background. No definite pneumothorax is appreciated. IMPRESSION: Mild to moderate amount of left pleural fluid with basilar infiltrate. There are scattered subcentimeter nodules in the lungs which are most pronounced in the right perihilar region which may be secondary to metastatic disease. Correlation with CT imaging of the thorax would be of use. Dictated by: Dictated on workstation # [id number]
[2018-02-22] MEDS ORDERED: NS IV 1000 ML 1,000 ML IV SCH ×2 (15:00→16:30)
[2018-02-22] MEDS ORDERED: PIPERACILLIN SODIUM/TAZOBACTAM 4.5 GM in D5W 100 ML IVPB 100 ML IV ONE (15:00)
[2018-02-22 16:30] VITALS: BP 140/75
[2018-02-22] MEDS ORDERED: CATHETER FLUSH 10 ML SYR IV PRN (16:45)
[2018-02-22] MEDS ORDERED: VANCOMYCIN 1,750 MG/NS 500 ML IVPB IV NR ×2 (16:45)
--- NOTE | 2018-02-22 16:56 | Oncology Consultation ---
Visit Information Visit Information Date of Admission Feb 22, 2018 at 15:00 Attending Physician Halley Camp MD Admitting Physician Halley Camp MD Chief Complaint fever, pneumonia, liver cancer Interval History Mr. 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 I did not offer him chemotherapy due to his poor performance status, ECOG score 3-4. Patient then went to [facility] for 2nd opinion and was diagnosed mixed hepatocellular carcinoma/cholangiocarcinoma. He also had paracentesis and 6.7L of fluid removed 02/19/18. He was supposed to start chemo tomorrow, Sorafenib 200mg daily. He presented to ER today with fever, pale, tachycardia. CXR showed LLL infiltration in addition to the multiple lung nodules. His ascites re-built back over 2 days after 6.7 liters paracentesis 2 days ago. He also has coffee ground emesis today 2 x so far. I consulted the patient on: 02/22/18 16:36 Time Seen by Provider: 16:38 Review of Systems Constitutional: chills, fever, weakness Respiratory: cough, dyspnea on exertion, short of breath Cardiovascular: palpitations Gastrointestinal: constipation, hematemesis, jaundice, loss of appetite Musculoskeletal: muscle stiffness, muscle cramps, muscle weakness Psychiatric/Neurological: Anxiety Health Status Allergies Coded Allergies: No Known Drug Allergies (Unverified , 01/23/10) Home Medications Alprazolam (Alprazolam) 0.25 Mg Tablet, 0.125-0.25 MG PO HS PRN for ANXIETY, ( Reported) Amlodipine Besylate (Amlodipine Besylate) 10 Mg Tablet, 10 MG PO DAILY, ( Reported) Budesonide/Formoterol Fumarate (Symbicort 160-4.5 Mcg Inhaler) 10.2 Gm Hfa.aer.ad, 2 PUFF IH BID, (Reported) Docusate Sodium (Colace) 100 Mg Capsule, 100 MG PO BID PRN for CONSTIPATION-1ST LINE, (Reported) Hydrocodone/Acetaminophen (Hydrocodone-Acetamin 5-325 mg) 1 Each Tablet, 0.5-1 TAB PO Q4H PRN for PAIN-MODERATE, (Reported) Sorafenib Tosylate (Nexavar) 200 Mg Tab, 200 MG PO Q72H, (Reported) HAS NOT STARTED YET; WAITING FOR IT TO ARRIVE Zolpidem Tartrate (Ambien) 5 Mg Tablet, 5 MG PO HS PRN for SLEEP, (Reported) BRC-Bjdklq-Tntneb Hx Patient Social History Alcohol Use: Occasionally Uses Recreational Drug Use: No (quit several yrs ago) Smoking Status: Former Smoker Type Used: Cigarettes 2nd Hand Smoke Exposure: No Recent Foreign Travel: No Contact w/other who traveled: No Recent Infectious Disease Expo: No Recent Hopitalizations: No Immunizations Up To Date Tetanus Booster (TDap): Less than 5yrs Date of Pneumonia Vaccine: Mar 29, 2010 Family Medical History Significant Family History: No Pertinent Family Hx Physical Exam Vital Signs Vital Signs - First Documented 02/22/18 02/22/18 13:05 18:10 Temp 98.2 Pulse 109 Resp 18 B/P (MAP) 153/75 (101) Pulse Ox 94 O2 Delivery Nasal Cannula O2 Flow Rate 2.00 FiO2 21 Capillary Refill : Less Than 3 Seconds Height, Weight, BMI Height: 6'0" Weight: 155lbs. 0.0oz. [id number]; 23.1 BMI Method:Stated General Appearance: Chronically ill, Thin, Other (cachectic) HEENT: PERRL/EOMI, Scleral Icterus (L), Scleral Icterus (R) Neck: Non Tender, Supple Respiratory: Chest Non Tender, Crackles, Rhonci Cardiovascular: Regular Rate, Rhythm, Tachycardia Gastrointestinal: Distended, Tenderness, Other (large ascites) Extremity: No Calf Tenderness Neurologic/Psychiatric: Alert, Oriented x3 Data Review Labs Laboratory Tests 02/23/18 05:25 Laboratory Tests 02/22/18 13:10: White Blood Count 21.3H, Red Blood Count 3.38L, Hemoglobin 9.9L, Hematocrit 29L , Red Cell Distribution Width 18.1H, Platelet Count 542H, Neutrophils (%) (Auto ) 81H, Lymphocytes (%) (Auto) 4L, Monocytes (%) (Auto) 15H, Neutrophils # (Auto ) 17.2H, Lymphocytes # (Auto) 0.8L, Monocytes # (Auto) 3.2H, Prothrombin Time 19.6H, INR Comment 1.7H, Sodium Level 112*L, Chloride Level 79L, Glucose Level 110H, Calcium Level 8.0L, Total Bilirubin 3.5H, Aspartate Amino Transf (AST/SGOT ) 165H, Alkaline Phosphatase 276H, Albumin 2.9L 02/23/18 05:25: White Blood Count 21.5H, Red Blood Count 2.85L, Hemoglobin 8.8L, Hematocrit 24L , Red Cell Distribution Width 17.7H, Platelet Count 432H, Neutrophils (%) (Auto ) 81H, Lymphocytes (%) (Auto) 7L, Neutrophils # (Auto) 17.4H, Monocytes # (Auto ) 2.4H, Sodium Level 113*L, Chloride Level 81L, Glucose Level 61L, Calcium Level 7.5L, Total Bilirubin 3.7H, Aspartate Amino Transf (AST/SGOT) 145H, Alkaline Phosphatase 244H, Albumin 2.6L, Mean Corpuscular Hemoglobin Concent 37H , Carbon Dioxide Level 20L, Blood Urea Nitrogen 21H, Magnesium Level 1.4L, Total Protein 5.3L Impression & Plan Impression & Plan IMP: 1. LLL infiltration pneumonia with fever, SOB and cough as well as elevated WBC. 2. Mix hepatocelluar/cholangiocarcinoma extensive metastasis to the lungs, liver , and peritoneal cavity. Supposed to start oral chemo tomorrow per [facility]. 3. Large ascites, s/p paracentesis at [facility] removed 6.7 L fluid 2 days ago and now re-built again with extended abdomen. 4. h/o alcoholism, multiple pancreatitis in the past 5. Liver failure 6. Hememesis 2x today 7. Anemia, most likely GI bleeding and portal hypertension 8. Hyponatremia, cancer related. Plan: 1. Agree Vanco an Zosyn for infection and pneumonia 2. I would not recommend any more paracentesis because it will re-build up again very quickly and he will lose a lot of albumin and protein while removing the ascites. 3. O2 support 4. Hold off chemo 5. If patient recovers from the pneumonia, he needs to go back to [facility] to discuss if he is a candidate for chemo treatment. I personally still think hospice would be a better choice. However, he is ready to accept it yet. 6. Be cautious of IVF. 7. Protonix for GI bleeding 8. Prognosis is guarded. CHON STRICKLAND MD Feb 22, 2018 16:56
[2018-02-22 18:10] VITALS: BP 140/75
[2018-02-22] MEDS ORDERED: RT-ALBUTEROL/IPRATROPIUM 3 ML (DUONEB) VIAL INH PRN (18:15)
[2018-02-22] MEDS ORDERED: RT-ALBUTEROL/IPRATROPIUM 3 ML (DUONEB) VIAL ONE (18:29)
--- NOTE | 2018-02-22 19:18 | History & Physicial ---
History of Present Illness History of Present Illness Reason for visit/HPI PT IS A 57 Y/O MALE WHO WAS LAST SEEN IN MY OFFICE IN 2015. HE REPORTEDLY WAS SEEN AT URGENT CARE AT THE END OF DECEMBER, BEGINNING OF JANUARY AND WAS SENT FOR A CT SCAN WHICH SHOWED A TREMENDOUS AMOUNT OF TUMOR BURDEN IN HIS ABDOMEN AND RIGHT LUNG. HIS REPORTS THAT AFTER THE BIOPSY HE WAS SEEN BY DR. STRICKLAND AND THEN THEY GOT A SECOND OPINION AT [facility] REPORTED THAT HE WOULD BE A CANDIDATE FOR NEXAVAR AND POSSIBLE IMMUNOTHERAPY. Date of Admission Feb 22, 2018 at 15:00 Date Seen by Provider: Feb 22, 2018 Time Seen by Provider: 18:40 I consulted on this patient on 02/22/18 1840 Attending Physician Prakash Camp MD Admitting Physician Prakash Camp MD Consult DR. JUANA STRICKLAND Allergies and Home Medications Allergies Coded Allergies: No Known Drug Allergies (Unverified , 01/23/10) Home Medications Amlodipine Besylate 10 Mg Tablet, 0.5 EA PO DAILY Prescribed by: ROSEANNA RAE on 10/28/14 1249 Famotidine 20 Mg Tablet, 1 EACH PO BID Prescribed by: JESUS OTT on 07/19/14 1045 Methylprednisolone 4 Mg/Dose-Pack Tab.ds.pk, 1 PKT PO UD Prescribed by: ROSEANNA RAE on 10/28/14 1257 [Metoprolol Succinate] 50 MG TAB, 50 MG PO DAILY Prescribed by: LOU GORDON on 07/19/14 1013 Patient Home Medication List Home Medication List Reviewed: Yes Past Eehcfet-Gcenrs-Bqzrxp Hx Patient Social History Marrital Status: Number of Children: 0 Living Status: LIVES AT HOME WITH SPOUSE Employed/Student: employed Alcohol Use: Occasionally Uses Recreational Drug Use: No (quit several yrs ago) Smoking Status: Former Smoker Former Smoker, Quit: Feb 23, 2012 Type Used: Cigarettes 2nd Hand Smoke Exposure: No Physical Abuse Screen: No Sexual Abuse: No Recent Foreign Travel: No Contact w/other who traveled: No Recent Hopitalizations: No Recent Infectious Disease Expo: No Immunizations Up To Date Tetanus Booster (TDap): Less than 5yrs Date of Pneumonia Vaccine: Mar 29, 2010 Seasonal Allergies Seasonal Allergies: No Surgeries No Respiratory Yes Currently Using CPAP: No Currently Using BIPAP: No Cardiovascular No Hypertension Neurological Yes (FEBRILE SEIZURES) Reproductive System Hx Reproductive Disorders: No Sexually Transmitted Disease: No HIV/AIDS: No Genitourinary No Gastrointestinal Yes (LIVER METS CANCER) Pancreatitis, Gall Bladder Disease Musculoskeletal No Endocrine History of Endocrine Disorders: No HEENT History of HEENT Disorders: No Hearing Impairment: Hard of Hearing Cancer Yes Liver, Lung, Stomach Did You Recieve Any Treatments: No Cancer Comment: SCHEDULED TO BEGIN ORAL CHEMO 02/23/18 Psychosocial History of Psychiatric Problem: No Integumentary History of Skin or Integumenta: No Blood Transfusions History of Blood Disorders: No Reviewed Nursing Assessment Reviewed/Agree w Nursing PMH: Yes Family Medical History Significant Family History: Heart Disease, Cancer, Hypertension Review of Systems Constitutional: No chills, No fever; malaise, weakness, weight loss EENTM: hoarseness, throat pain Respiratory: cough, dyspnea on exertion, short of breath Cardiovascular: No chest pain; edema; No palpitations Gastrointestinal: abdominal pain (DIFFUSELY), jaundice, loss of appetite, nausea Genitourinary: no symptoms reported Musculoskeletal: muscle weakness Skin: other (JAUNDICE) Psychiatric/Neurological: Denies Anxiety, Denies Depressed; Weakness All Other Systems Reviewed Negative Unless Noted: Yes Physical Exam Vital Signs Vital Signs - First Documented 02/22/18 02/22/18 13:05 18:10 Temp 98.2 Pulse 109 Resp 18 B/P (MAP) 153/75 (101) Pulse Ox 94 O2 Delivery Nasal Cannula O2 Flow Rate 2.00 FiO2 21 Capillary Refill : Less Than 3 Seconds Height, Weight, BMI Height: 6'0" Weight: 155lbs. 0.0oz. 70.594950wv; 23.1 BMI Method:Stated General Appearance: Moderate Distress, Thin Eyes: Bilateral Eye Normal Inspection, Bilateral Eye PERRL, Bilateral Eye EOMI HEENT: PERRL/EOMI, Pharynx Normal Neck: Full Range of Motion, Supple Respiratory: Chest Non Tender, Crackles (LEFT BASE, DECREASED BREATH SOUNDS THROUGHOUT), Decreased Breath Sounds Cardiovascular: Regular Rate, Rhythm, Other (TRACE EDEMA BILATERAL LOWER EXTREMITIES) Gastrointestinal: Distended, Hepatomegaly (LIVER PALPATED AND PERCUSSED ACROSS ENTIRE UPPER ABDOMEN FROM RUQ TO LUQ AND SOME PALPABLE FLUID IN FLANKS BILATERALLY), Tenderness (ALONG EDGE OF LIVER) Rectal: Deferred Back: No CVA Tenderness, No Vertebral Tenderness Extremity: Non Tender, No Calf Tenderness, Pedal Edema Neurologic/Psychiatric: Alert, Oriented x3, Normal 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 MIXED HEPATOCELLULAR CARCINOMA - AND CHOLANGIOCARCINOMA - DISCUSSED WITH PT AND HIS - WE NEED MORE INFORMATION ABOUT THE PROPOSED TREATMENT AND I WILL TALK TO HIS ONCOLOGIST AT TOMORROW. Dr. Nita Gonzalez - Cancer center physician - appt is for 02/26/18 - Nexavar (sorfanib) is the chemotherapy pill that he is supposed to receive. PNEUMONIA - PT STARTED ON PNEUMONIA PROTOCOL - VANCOMYCIN AND ZOSYN - MONITOR CHEST XRAY, LABS, BREATHING TREATMENTS. HYPERTENSION - MONITOR BLOOD PRESSURE AT THIS TIME I WILL HOLD OFF ON ANY MEDICATIONS. ANEMIA - CHECK LABS IN MORNING WITH HYDRATION. UNCERTAIN IF HEMATEMESIS VERSUS BLOOD STREAKED SPUTUM - CONTINUE WITH PPI. ASCITES - WITH LIVER FAILURE DUE TO METASTATIC CANCER - DISCUSSED WITH DR. 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 WILL GENTLY HYDRATE PT FOR TREATMENT OF HYPONATREMIA BUT CLOSELY WATCH HIS ASCITES WITH DR. ARIAS AVAILABLE FOR FURTHER PARACENTESIS SHOULD IT BE NEEDED. HX OF ALCOHOLISM - SUPPORTIVE CARE HX OF PANCREATITIS HX OF TOBACCOISM DVT PROPHYLAXIS WITH SCD'S - HOLD OFF ON LOVENOX FOR NOW - GI PROPHYLAXIS WITH PPI DISCUSSED CODE STATUS WITH PATIENT - HE IS GOING TO "THINK ABOUT IT" AND GET BACK WITH ME ABOUT HIS CODE STATUS. HE IS AWARE THAT AT THIS TIME HE IS A FULL CODE UNLESS HE DECIDES OTHERWISE. Admission Diagnosis HYPONATREMIA PNEUMONIA MIXED HEPATOCELLULAR CARCINOMA CHOLANGIOCARCINOMA HYPERTENSION ANEMIA UNCERTAIN IF HEMATEMESIS VERSUS BLOOD STREAKED SPUTUM ASCITES LIVER FAILURE HX OF ALCOHOLISM HX OF PANCREATITIS HX OF TOBACCOISM Admission Status: Inpatient Order (span 2 midnights) Reason for Inpatient Admission: PT HAS PNEUMONIA, SEVERE HYPONATREMIA, WITH HEPATIC FAILURE AND METASTATIC CANCER - PT WILL REQUIRE MORE THAN 2 MIDNIGHTS IN [facility] FOR TREATMENT OF THE ABOVE MENTIONED CONDITIONS WITH ANTIBIOTICS, FLUIDS, AND POSSIBLE PARACENTESIS Clinical Quality Measures DVT/VTE Risk/Contraindication: Risk Factor Score Per Nursin RFS Level Per Nursing on Admit: 4+=Very High PRAKASH CAMP MD Feb 22, 2018 19:18
[2018-02-22] MEDS ORDERED: HYDR-3812 PO (19:46)
[2018-02-22] MEDS ORDERED: ALPR0.254 PO (19:46)
[2018-02-22] MEDS: RT-ALBUTEROL/IPRATROPIUM 3 ML (DUONEB) VIAL INH SCH (19:50)
[2018-02-22 20:14] VITALS: BP 126/60
[2018-02-22] MEDS: PANTOPRAZOLE 40 MG (PROTONIX) VIAL IV SCH (22:04)
[2018-02-22] MEDS: PIPERACILLIN/TAZO 4.5 GM/D5W 100 ML IV SCH ×2 (22:10)
[2018-02-23] VITALS (7 sets, daily range): BP systolic 121–133; BP diastolic 56–62
[2018-02-23] MEDS: HYDROcodone/APAP 5 MG/325 MG (LORTAB) TAB PO PRN ×4 (01:00→22:21)
[2018-02-23] MEDS ORDERED: NS (IVPB) 250 ML ONE (05:06)
[2018-02-23] MEDS ORDERED: VANCOMYCIN 750 MG/VIAL IV ONE (05:06)
[2018-02-23] MEDS ORDERED: VANCOMYCIN 500 MG/VIAL IV ONE (05:08)
[2018-02-23] MEDS: VANCOMYCIN 1250 MG/NS 250 ML IVPB IV SCH ×4 (05:34→17:26)
[2018-02-23] MEDS: PIPERACILLIN/TAZO 4.5 GM/D5W 100 ML IV SCH ×6 (05:34→19:42)
[2018-02-23 05:43] LABS: BASOPHILS # (AUTO) 0.1 10^3/uL (0.0-0.1); BASOPHILS % (AUTO) 1 % (0-10); EOSINOPHILS # (AUTO) 0.1 10^3/uL (0.0-0.3); EOSINOPHILS % (AUTO) 1 % (0-10); HEMATOCRIT 24 % (40-54); HEMOGLOBIN 8.8 G/DL (13.3-17.7); LYMPHOCYTES # (AUTO) 1.4 X 10^3 (1.0-4.0); LYMPHOCYTES % (AUTO) 7 % (12-44); MEAN CORPUSCULAR HEMOGLOBIN 31 PG (25-34); MEAN CORPUSCULAR HGB CONC 37 G/DL (32-36); MEAN CORPUSCULAR VOLUME 84 FL (80-99); MONOCYTES # (AUTO) 2.4 X 10^3 (0.0-1.0); MONOCYTES % (AUTO) 11 % (0-12); NEUTROPHILS # (AUTO) 17.4 X 10^3 (1.8-7.8); NEUTROPHILS % (AUTO) 81 % (42-75); PLATELET COUNT 432 10^3/uL (130-400); RED BLOOD COUNT 2.85 10^6/uL (4.35-5.85); RED CELL DISTRIBUTION WIDTH 17.7 % (10.0-14.5); WHITE BLOOD COUNT 21.5 10^3/uL (4.3-11.0)
[2018-02-23] MEDS: RT-ALBUTEROL/IPRATROPIUM 3 ML (DUONEB) VIAL INH SCH ×5 (05:47→21:35)
[2018-02-23] MEDS: LACTOBACILLUS Acidoph/Bulgar (LACTINEX/FLORANEX) TAB PO SCH ×3 (05:56→16:21)
[2018-02-23] MEDS ORDERED: RT-ALBUTEROL/IPRATROPIUM 3 ML (DUONEB) VIAL INH PRN (06:00)
[2018-02-23 06:16] LABS: ALANINE AMINOTRANSFERASE 31 U/L (0-55); ALBUMIN 2.6 GM/DL (3.2-4.5); ALKALINE PHOSPHATASE 244 U/L (40-136); BILIRUBIN,TOTAL 3.7 MG/DL (0.1-1.0); BUN/CREATININE RATIO 31; CALCIUM 7.5 MG/DL (8.5-10.1); CARBON DIOXIDE 20 MMOL/L (21-32); CHLORIDE 81 MMOL/L (98-107); CREATININE SERUM 0.68 MG/DL (0.60-1.30); GFR ESTIMATED > 60; GLUCOSE 61 MG/DL (70-105); POTASSIUM 4.5 MMOL/L (3.6-5.0); TOTAL PROTEIN 5.3 GM/DL (6.4-8.2)
[2018-02-23 06:21] LABS: SODIUM 113 MMOL/L (135-145)
--- NOTE | 2018-02-23 08:02 | Diagnostic Imaging Report ---
INDICATION: Pneumonia. TECHNIQUE: 2 views of the chest. COMPARISON: 02/22/2018 FINDINGS: There is a moderate left pleural effusion which appears increased since the prior exam. There is increased associated airspace opacities in the left lung base. Nodular densities are seen scattered throughout the lungs bilaterally. The cardiac silhouette is stable in size. There is no pneumothorax. IMPRESSION: 1. Moderate left pleural effusion with associated atelectasis appears mildly increased compared to the prior exam. 2. Multiple nodules seen throughout the chest bilaterally. Dictated by: Dictated on workstation # [id number]
[2018-02-23] MEDS ORDERED: BUDE10.2 IH (10:21)
[2018-02-23] MEDS ORDERED: AMLO10TA6 PO (10:21)
[2018-02-23] MEDS ORDERED: DOCU-143 PO (10:21)
[2018-02-23] MEDS ORDERED: ZOLP5TAB PO (10:21)
[2018-02-23] MEDS ORDERED: SORA200T PO (10:34)
[2018-02-23] MEDS: PANTOPRAZOLE 40 MG (PROTONIX) VIAL IV SCH ×2 (10:59→19:42)
[2018-02-23] MEDS: SODIUM CHLORIDE IV SCH ×2 (11:08)
[2018-02-23] MEDS: POTASSIUM CHLORIDE IV SCH ×2 (11:08)
[2018-02-23] MEDS: DEXTROSE IV SCH ×2 (11:08)
[2018-02-23] MEDS: CALCIUM CARBONATE 600 MG (CALCARB) TAB PO SCH ×2 (12:00→17:26)
--- NOTE | 2018-02-23 14:19 | Consultation ---
History of Present Illness History of Present Illness Patient Consulted On(vero/time) 02/22/18 17:11 Date Seen by Provider: Feb 22, 2018 Time Seen by Provider: 17:11 History of Present Illness Consult requested by Dr. Camp for hepatocellular carcinoma/ cholangiocarcinoma with metastasis and ascites Patient is a 57-year-old male with recent diagnosis of hepatocellular carcinoma cholangiocarcinoma with metastasis. Patient has been developing large volume ascites and has had undergo paracentesis for symptomatic relief. Patient has had a productive cough over last several days and question and some emesis with dark streaking in the questionable hematemesis. Patient also with some low-grade fever and had a white blood cell count of 21,000 when he went to the emergency department. Patient has been feeling weak and just having overall pain that he has a hard time describing. Patient states that he takes hydrocodone for pain. Patient chest x-ray demonstrating some left lower lobe infiltrate and has been started on Zosyn and vancomycin. Patient isstarting on oral chemotherapy but this is on hold. Patient with no other complaints at this time. Denies any sweats chills shortness of breath or chest pain. Allergies and Home Medications Allergies Coded Allergies: No Known Drug Allergies (Unverified , 01/23/10) Home Medications Alprazolam 0.25 Mg Tablet, 0.125-0.25 MG PO HS PRN for ANXIETY, (Reported) Amlodipine Besylate 10 Mg Tablet, 10 MG PO DAILY, (Reported) Budesonide/Formoterol Fumarate 10.2 Gm Hfa.aer.ad, 2 PUFF IH BID, (Reported) Docusate Sodium 100 Mg Capsule, 100 MG PO BID PRN for CONSTIPATION-1ST LINE, ( Reported) Hydrocodone/Acetaminophen 1 Each Tablet, 0.5-1 TAB PO Q4H PRN for PAIN-MODERATE, (Reported) Sorafenib Tosylate 200 Mg Tab, 200 MG PO Q72H, (Reported) HAS NOT STARTED YET; WAITING FOR IT TO ARRIVE Zolpidem Tartrate 5 Mg Tablet, 5 MG PO HS PRN for SLEEP, (Reported) Patient Home Medication List Home Medication List Reviewed: Yes Past Cawhwzn-Edjceu-Gxcvis Hx Patient Social History Alcohol Use: Regular Use Recreational Drug Use: No (quit several yrs ago) Smoking Status: Former Smoker Former Smoker, Quit: Feb 23, 2012 Type Used: Cigarettes 2nd Hand Smoke Exposure: No Recent Foreign Travel: No Contact w/Someone Who Travel: No Recent Infectious Disease Expo: No Recent Hopitalizations: No Physical Abuse Screen: No Sexual Abuse: No Immunizations Up To Date Tetanus Booster (TDap): Less than 5yrs Date of Pneumonia Vaccine: Mar 29, 2010 Seasonal Allergies Seasonal Allergies: No Surgeries History of Surgeries: No Respiratory History of Respiratory Disorde: Yes Respiratory Disorders: Pneumonia Cardiovascular History of Cardiac Disorders: No Cardiac Disorders: Hypertension Neurological History of Neurological Disord: Yes (FEBRILE SEIZURES doesnt take seizure meds) Reproductive System Hx Reproductive Disorders: No Sexually Transmitted Disease: No HIV/AIDS: No Genitourinary History of Genitourinary Disor: No Gastrointestinal History of Gastrointestinal Di: Yes (LIVER METS CANCER) Gastrointestinal Disorders: Pancreatitis, Gall Bladder Disease Musculoskeletal History of Musculoskeletal Dis: No Endocrine History of Endocrine Disorders: No HEENT History of HEENT Disorders: Yes Hearing Impairment: Hard of Hearing Cancer History of Cancer: Yes Cancer: Liver, Lung, Stomach Psychosocial History of Psychiatric Problem: No Integumentary History of Skin or Integumenta: No Blood Transfusions History of Blood Disorders: No Reviewed Nursing Assessment Reviewed/Agree w Nursing PMH: Yes Family Medical History Significant Family History: Heart Disease, Cancer, Hypertension Review of Systems-General Constitutional: see HPI, weakness EENTM: no symptoms reported Respiratory: see HPI, cough Cardiovascular: no symptoms reported Gastrointestinal: see HPI Genitourinary: no symptoms reported Musculoskeletal: no symptoms reported Skin: no symptoms reported Psychiatric/Neurological: No Symptoms Reported Physical Exam-General Problems Physical Exam Vital Signs Vital Signs - First Documented 02/22/18 02/22/18 13:05 18:10 Temp 98.2 Pulse 109 Resp 18 B/P (MAP) 153/75 (101) Pulse Ox 94 O2 Delivery Nasal Cannula O2 Flow Rate 2.00 FiO2 21 Capillary Refill : Less Than 3 Seconds General Appearance: no apparent distress HEENT: PERRL/EOMI, normal ENT inspection Neck: supple Respiratory: chest non-tender, no respiratory distress, no accessory muscle use Cardiovascular: regular rate, rhythm Gastrointestinal: tenderness (Very minimal tenderness diffuse, no significant ascites, liver significantly enlarged with mass), mass, other Rectal: deferred Back: normal inspection, no CVA tenderness Extremities: non-tender, normal inspection Neurologic/Psychiatric: no motor/sensory deficits, alert, normal mood/affect, oriented x 3 Skin: jaundice Lymphatic: no adenopathy Data Review Labs Laboratory Tests 02/23/18 05:25: White Blood Count 21.5H, Red Blood Count 2.85L, Hemoglobin 8.8L, Hematocrit 24L , Mean Corpuscular Volume 84, Mean Corpuscular Hemoglobin 31, Mean Corpuscular Hemoglobin Concent 37H, Red Cell Distribution Width 17.7H, Platelet Count 432H, Mean Platelet Volume 9.0, Neutrophils (%) (Auto) 81H, Lymphocytes (%) (Auto) 7L , Monocytes (%) (Auto) 11, Eosinophils (%) (Auto) 1, Basophils (%) (Auto) 1, Neutrophils # (Auto) 17.4H, Lymphocytes # (Auto) 1.4, Monocytes # (Auto) 2.4H, Eosinophils # (Auto) 0.1, Basophils # (Auto) 0.1, Sodium Level 113*L, Potassium Level 4.5, Chloride Level 81L, Carbon Dioxide Level 20L, Anion Gap 12, Blood Urea Nitrogen 21H, Creatinine 0.68, Estimat Glomerular Filtration Rate > 60, BUN /Creatinine Ratio 31, Glucose Level 61L, Calcium Level 7.5L, Corrected Calcium 8.6, Magnesium Level 1.4L, Total Bilirubin 3.7H, Aspartate Amino Transf (AST/ SGOT) 145H, Alanine Aminotransferase (ALT/SGPT) 31, Alkaline Phosphatase 244H, Total Protein 5.3L, Albumin 2.6L Assessment/Plan Assessment/Plan Assessment/Plan Hepatocellular carcinoma cholangiocarcinoma with metastasis and ascites Hyponatremia Pneumonia Anemia Hematemesis versus blood-streaked sputum Alcoholism Patient admitted with pneumonia left lower lobe. He is on vancomycin and Zosyn. His ascites is still significantly down from where it usually is. He has a large tumor burden/liver. No surgical intervention at this time. Replace fluids carefully do not plan on any paracentesis at this time. Follow labs. Patient on Protonix 40 mg twice a day for possible hematemesis versus blood- streaked sputum. Will follow. Clinical Quality Measures DVT/VTE Risk/Contraindication: Risk Factor Score Per Nursin RFS Level Per Nursing on Admit: 4+=Very High SOHAM ARIAS DO Feb 23, 2018 14:19
--- NOTE | 2018-02-23 14:36 | Progress Note ---
Subjective Date Seen by Provider: Feb 23, 2018 Time Seen by Provider: 14:31 Subjective/Events-last exam Patient states she's not getting much sleep. Woke up multiple times. Patient slightly fatigued. Patient states that he's having some pain that sort all over. Tolerable distress skin certain positions to make it better. Patient still productive cough has not had any emesis today. No fever. Pain controlled. Focused Exam Lactate Level 02/22/18 13:10: Lactic Acid Level 2.00 Objective Exam Vital Signs Date Time Temp Pulse Resp B/P (MAP) Pulse Ox O2 Delivery O2 Flow Rate FiO2 02/23/18 11:51 97.3 97 18 124/61 (82) 93 Nasal Cannula 4.00 02/23/18 11:21 91 Nasal Cannula 2.00 02/23/18 08:00 93 Room Air 2.00 02/23/18 07:36 98.6 96 18 126/62 (83) 99 Nasal Cannula 2.00 02/23/18 05:47 88 Nasal Cannula 2.00 02/23/18 05:47 101 88 02/23/18 04:00 99.0 103 20 121/56 (77) 94 Room Air 02/23/18 00:00 99.1 111 22 133/59 (83) 90 Room Air 02/22/18 20:14 99.1 112 20 126/60 (82) 93 Room Air 02/22/18 20:00 93 Room Air 2.00 02/22/18 19:52 93 Nasal Cannula 2.00 02/22/18 18:10 108 93 21 02/22/18 17:30 96 Nasal Cannula 2.00 02/22/18 16:30 98.7 108 16 140/75 (96) 93 Room Air 02/22/18 16:11 98.2 101 18 127/65 (101) 95 Room Air I & O 02/23/18 07:00 Intake Total 2777.5 ml Output Total 150 ml Balance 2627.5 ml Capillary Refill : Less Than 3 Seconds General Appearance: No Apparent Distress HEENT: PERRL/EOMI, Normal ENT Inspection Neck: Non Tender, Supple Respiratory: Chest Non Tender, Crackles, Decreased Breath Sounds Cardiovascular: Regular Rate, Rhythm Gastrointestinal: tenderness (Very minimal tenderness diffuse, no significant ascites, liver significantly enlarged with mass), mass Extremity: Non Tender, No Calf Tenderness Neurologic/Psychiatric: Alert, Oriented x3, Normal 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, 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 Skin: Jaundice Lymphatic: No Adenopathy Results Lab Laboratory Tests 02/23/18 05:25: White Blood Count 21.5H, Red Blood Count 2.85L, Hemoglobin 8.8L, Hematocrit 24L , Mean Corpuscular Volume 84, Mean Corpuscular Hemoglobin 31, Mean Corpuscular Hemoglobin Concent 37H, Red Cell Distribution Width 17.7H, Platelet Count 432H, Mean Platelet Volume 9.0, Neutrophils (%) (Auto) 81H, Lymphocytes (%) (Auto) 7L , Monocytes (%) (Auto) 11, Eosinophils (%) (Auto) 1, Basophils (%) (Auto) 1, Neutrophils # (Auto) 17.4H, Lymphocytes # (Auto) 1.4, Monocytes # (Auto) 2.4H, Eosinophils # (Auto) 0.1, Basophils # (Auto) 0.1, Sodium Level 113*L, Potassium Level 4.5, Chloride Level 81L, Carbon Dioxide Level 20L, Anion Gap 12, Blood Urea Nitrogen 21H, Creatinine 0.68, Estimat Glomerular Filtration Rate > 60, BUN /Creatinine Ratio 31, Glucose Level 61L, Calcium Level 7.5L, Corrected Calcium 8.6, Magnesium Level 1.4L, Total Bilirubin 3.7H, Aspartate Amino Transf (AST/ SGOT) 145H, Alanine Aminotransferase (ALT/SGPT) 31, Alkaline Phosphatase 244H, Total Protein 5.3L, Albumin 2.6L Assessment/Plan Assessment/Plan Assessment/Plan Hepatocellular carcinoma cholangiocarcinoma with metastasis and ascites Hyponatremia Pneumonia Anemia Hematemesis versus blood-streaked sputum Alcoholism Patient admitted with pneumonia left lower lobe. He is on vancomycin and Zosyn. His ascites is still significantly down from where it usually is. He has a large tumor burden/liver. No surgical intervention at this time. Replace fluids carefully do not plan on any paracentesis at this time. Follow labs. Patient on Protonix 40 mg twice a day, not had any hematemesis some productive cough Will follow. Clinical Quality Measures DVT/VTE Risk/Contraindication: Risk Factor Score Per Nursin RFS Level Per Nursing on Admit: 4+=Very High SOHAM ARIAS DO Feb 23, 2018 14:36
--- NOTE | 2018-02-23 16:47 | Physician Progress Note ---
Progress Note Assessment/Plan Date Seen by Provider: Feb 23, 2018 Time Seen by Provider: 16:40 Events since last exam Pt is feeling better today. Tmax 99 Cough is less and no more streaks of the blood. Laboratory Tests 02/23/18 05:25 Assessment/Plan A/P 1. LLL infiltration pneumonia with fever, SOB and cough as well as elevated WBC. Improved on IV antibiotics Vanco and Zosyn day 2. 2. Mix hepatocelluar/cholangiocarcinoma extensive metastasis to the lungs, liver , and peritoneal cavity. Supposed to start oral chemo per [facility]. But on hold now due to pneumonia infection. 3. Large ascites, s/p paracentesis at [facility] removed 6.7 L fluid 2 days ago and now re-built again with extended abdomen. 4. h/o alcoholism, multiple pancreatitis in the past 5. Liver failure 6. Hememesis 2x vs sputum with blood streaks. Better today 7. Anemia, most likely GI bleeding and portal hypertension. On Protonix 40mg bid. 8. Hyponatremia, cancer related. Plan: 1. Continue IV Vanco an Zosyn for infection and pneumonia. Dr Camp to decide the hospital course and discharge. 2. I would not recommend any more paracentesis because it will re-build up again very quickly and he will lose a lot of albumin and protein while removing the ascites. 3. O2 support 4. Hold off chemo 5. If patient recovers from the pneumonia, he needs to go back to [facility] to discuss if he is a candidate for chemo treatment. I personally still think hospice would be a better choice for him. However, he is ready to accept it yet. 6. Be cautious of IVF. I would not treat hyponatremia with normal saline because of his liver failure and large ascites. 7. Protonix Bid 8. Prognosis is guarded. Vitals Last set of Vitals Signs Vital Signs Date Time Temp Pulse Resp B/P (MAP) Pulse Ox O2 Delivery O2 Flow Rate FiO2 02/23/18 14:38 93 Nasal Cannula 4.00 02/23/18 11:51 97.3 97 18 124/61 (82) 02/22/18 18:10 21 I&O I&O Intake and Output 02/22/18 23:59 Intake Total 1877.5 ml Output Total 100 ml Balance 1777.5 ml Intake Oral 150 ml IV Total 1727.5 ml Output Urine Total 100 ml Daily Weight Change Unsure Labs Laboratory Tests 02/23/18 05:25: White Blood Count 21.5H, Red Blood Count 2.85L, Hemoglobin 8.8L, Hematocrit 24L , Mean Corpuscular Volume 84, Mean Corpuscular Hemoglobin 31, Mean Corpuscular Hemoglobin Concent 37H, Red Cell Distribution Width 17.7H, Platelet Count 432H, Mean Platelet Volume 9.0, Neutrophils (%) (Auto) 81H, Lymphocytes (%) (Auto) 7L , Monocytes (%) (Auto) 11, Eosinophils (%) (Auto) 1, Basophils (%) (Auto) 1, Neutrophils # (Auto) 17.4H, Lymphocytes # (Auto) 1.4, Monocytes # (Auto) 2.4H, Eosinophils # (Auto) 0.1, Basophils # (Auto) 0.1, Sodium Level 113*L, Potassium Level 4.5, Chloride Level 81L, Carbon Dioxide Level 20L, Anion Gap 12, Blood Urea Nitrogen 21H, Creatinine 0.68, Estimat Glomerular Filtration Rate > 60, BUN /Creatinine Ratio 31, Glucose Level 61L, Calcium Level 7.5L, Corrected Calcium 8.6, Magnesium Level 1.4L, Total Bilirubin 3.7H, Aspartate Amino Transf (AST/ SGOT) 145H, Alanine Aminotransferase (ALT/SGPT) 31, Alkaline Phosphatase 244H, Total Protein 5.3L, Albumin 2.6L Microbiology 02/22/18 Blood Culture - Preliminary, Resulted No growth Focused Exam Lactate Level 02/22/18 13:10: Lactic Acid Level 2.00 Clinical Quality Measures DVT/VTE Risk/Contraindication: Risk Factor Score Per Nursin RFS Level Per Nursing on Admit: 4+=Very High CHON STRICKLAND MD Feb 23, 2018 16:47
--- NOTE | 2018-02-23 19:22 | Progress Note ---
Subjective Date Seen by Provider: Feb 23, 2018 Time Seen by Provider: 08:45 Subjective/Events-last exam PT SEEN THIS MORNING - NOTE ENTERED LATE DUE TO MEDITECH DOWNTIME PT FATIGUED, HARD OF HEARING - REPORTS THAT HE DOES NOT HAVE ANY NEW COMPLAINTS , HE HAD COUGHING THROUGHOUT THE NIGHT, HE DENIES CHEST PAIN, DOES HAVE SOME SHORTNESS OF BREATH. HE HAD URINARY INCONTINENCE. Review of Systems General: No Chills; Fatigue, Malaise Pulmonary: No Dyspnea; Cough Cardiovascular: No: Chest Pain, Palpitations Gastrointestinal: Abdominal Pain; No: Nausea Genitourinary: Frequency, Incontinence Neurological: Weakness, Confusion Focused Exam Lactate Level 02/22/18 13:10: Lactic Acid Level 2.00 Objective Exam Last Set of Vital Signs Vital Signs Date Time Temp Pulse Resp B/P (MAP) Pulse Ox O2 Delivery O2 Flow Rate FiO2 02/23/18 18:40 88 Room Air 02/23/18 15:51 97.8 101 18 132/60 (84) 4.00 02/22/18 18:10 21 Capillary Refill : Less Than 3 Seconds I&O Intake and Output 02/23/18 00:00 Intake Total 1877.5 ml Output Total 100 ml Balance 1777.5 ml Intake Oral 150 ml IV Total 1727.5 ml Output Urine Total 100 ml Daily Weight Change Unsure General: Alert, Oriented X3, Cooperative HEENT: PERRLA Neck: Supple Lungs: Clear to Auscultation (UPPER LOBES CLEAR, LOWER LOBES WITH FAINT CRAKCLES) Heart: Regular Rate Abdomen: Other (DECREASED BOWEL SOUNDS WITH TENDER EDGE OF LIVER ACROSS ENTIRE UPPER ABDOMEN, INCREASED FLUID WAVE) Skin: Other (JAUNDICE) Psych/Mental Status: Mental Status NL, Mood NL Results Lab Laboratory Tests 02/23/18 05:25: White Blood Count 21.5H, Red Blood Count 2.85L, Hemoglobin 8.8L, Hematocrit 24L , Mean Corpuscular Volume 84, Mean Corpuscular Hemoglobin 31, Mean Corpuscular Hemoglobin Concent 37H, Red Cell Distribution Width 17.7H, Platelet Count 432H, Mean Platelet Volume 9.0, Neutrophils (%) (Auto) 81H, Lymphocytes (%) (Auto) 7L , Monocytes (%) (Auto) 11, Eosinophils (%) (Auto) 1, Basophils (%) (Auto) 1, Neutrophils # (Auto) 17.4H, Lymphocytes # (Auto) 1.4, Monocytes # (Auto) 2.4H, Eosinophils # (Auto) 0.1, Basophils # (Auto) 0.1, Sodium Level 113*L, Potassium Level 4.5, Chloride Level 81L, Carbon Dioxide Level 20L, Anion Gap 12, Blood Urea Nitrogen 21H, Creatinine 0.68, Estimat Glomerular Filtration Rate > 60, BUN /Creatinine Ratio 31, Glucose Level 61L, Calcium Level 7.5L, Corrected Calcium 8.6, Magnesium Level 1.4L, Total Bilirubin 3.7H, Aspartate Amino Transf (AST/ SGOT) 145H, Alanine Aminotransferase (ALT/SGPT) 31, Alkaline Phosphatase 244H, Total Protein 5.3L, Albumin 2.6L Microbiology 02/22/18 Blood Culture - Preliminary, Resulted No growth Assessment/Plan Assessment/Plan Assess & Plan/Chief Complaint HYPONATREMIA PNEUMONIA MIXED HEPATOCELLULAR CARCINOMA CHOLANGIOCARCINOMA HYPERTENSION ANEMIA UNCERTAIN IF HEMATEMESIS VERSUS BLOOD STREAKED SPUTUM ASCITES LIVER FAILURE HX OF ALCOHOLISM HX OF PANCREATITIS HX OF TOBACCOISM HYPONATREMIA - STARTED ON IV FLUIDS - SODIUM LEVEL WAS ONLY 113 THIS MORNING - CHECK LABS TOMORROW - IV FLUIDS SLIGHTLY INCREASED. MONITOR SYMPTOMS AT THIS TIME - GENTLE HYDRATION DUE TO HIS ASCITES. MIXED HEPATOCELLULAR CARCINOMA - AND CHOLANGIOCARCINOMA - DISCUSSED WITH PT AND HIS - WE NEED MORE INFORMATION ABOUT THE PROPOSED TREATMENT AND I TALKED TO THE OFFICE NURSE OF DR. KUMAR TODAY - THEY WANT TO HOLD THE NEXAVAR AT THIS TIME. THEY WILL RESCHEDULE HIS APPT FOR 02/26/18. PNEUMONIA - PT STARTED ON PNEUMONIA PROTOCOL - VANCOMYCIN AND ZOSYN - MONITOR CHEST XRAY, LABS, BREATHING TREATMENTS. HYPERTENSION - MONITOR BLOOD PRESSURE AT THIS TIME I WILL HOLD OFF ON ANY MEDICATIONS. ANEMIA - DROP FROM YESTERDAY - BY 1 GRAM - WE WILL CHECK LABS IN MORNING I ANTICIPATE FURTHER DROPS WITH CONTINUED HYDRATION. UNCERTAIN IF HEMATEMESIS VERSUS BLOOD STREAKED SPUTUM - CONTINUE WITH PPI. ASCITES - WITH LIVER FAILURE DUE TO METASTATIC CANCER - DISCUSSED WITH DR. 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 WILL GENTLY HYDRATE PT FOR TREATMENT OF HYPONATREMIA BUT CLOSELY WATCH HIS ASCITES WITH DR. ARIAS AVAILABLE FOR FURTHER PARACENTESIS SHOULD IT BE NEEDED. HX OF ALCOHOLISM - SUPPORTIVE CARE HX OF PANCREATITIS HX OF TOBACCOISM DVT PROPHYLAXIS WITH SCD'S - HOLD OFF ON LOVENOX FOR NOW - GI PROPHYLAXIS WITH PPI DISCUSSED CODE STATUS WITH PATIENT - HE IS GOING TO "THINK ABOUT IT" AND GET BACK WITH ME ABOUT HIS CODE STATUS. HE IS AWARE THAT AT THIS TIME HE IS A FULL CODE UNLESS HE DECIDES OTHERWISE. Clinical Quality Measures Admission Status Admission Dx HYPONATREMIA PNEUMONIA MIXED HEPATOCELLULAR CARCINOMA CHOLANGIOCARCINOMA HYPERTENSION ANEMIA UNCERTAIN IF HEMATEMESIS VERSUS BLOOD STREAKED SPUTUM ASCITES LIVER FAILURE HX OF ALCOHOLISM HX OF PANCREATITIS HX OF TOBACCOISM DVT/VTE Risk/Contraindication: Risk Factor Score Per Nursin RFS Level Per Nursing on Admit: 4+=Very High PRAKASH JERRY MD Feb 23, 2018 19:22
[2018-02-23] MEDS ORDERED: MAGNESIUM 1 GM/100 ML IVPB 100 ML IV NR (20:02)
[2018-02-24] VITALS: BP 101/51
[2018-02-24] MEDS: SODIUM CHLORIDE IV SCH ×6 (00:12→17:04)
[2018-02-24] MEDS: DEXTROSE IV SCH ×6 (00:12→17:04)
[2018-02-24] MEDS: POTASSIUM CHLORIDE IV SCH ×6 (00:12→17:04)
[2018-02-24] MEDS: RT-ALBUTEROL/IPRATROPIUM 3 ML (DUONEB) VIAL INH SCH ×6 (01:31→20:54)
[2018-02-24] MEDS: PIPERACILLIN/TAZO 4.5 GM/D5W 100 ML IV SCH ×6 (03:32→21:13)
[2018-02-24] MEDS: HYDROcodone/APAP 5 MG/325 MG (LORTAB) TAB PO PRN ×2 (03:32→21:24)
[2018-02-24] MEDS ORDERED: TROUGH ORDER-PHARMACY XX NR (04:00)
[2018-02-24] MEDS: CALCIUM CARBONATE 600 MG (CALCARB) TAB PO SCH ×3 (05:39→17:04)
[2018-02-24] MEDS: LACTOBACILLUS Acidoph/Bulgar (LACTINEX/FLORANEX) TAB PO SCH ×3 (05:39→17:04)
[2018-02-24 06:30] LABS: HEMOGLOBIN 8.6 G/DL (13.3-17.7); MEAN PLATELET VOLUME 8.8 FL (7.4-10.4); RED BLOOD COUNT 2.93 10^6/uL (4.35-5.85); WHITE BLOOD COUNT 13.6 10^3/uL (4.3-11.0)
[2018-02-24 06:52] LABS: ALANINE AMINOTRANSFERASE 33 U/L (0-55); ALBUMIN 2.8 GM/DL (3.2-4.5); ALKALINE PHOSPHATASE 241 U/L (40-136); BUN/CREATININE RATIO 24; CALCIUM 7.9 MG/DL (8.5-10.1); CARBON DIOXIDE 22 MMOL/L (21-32); CHLORIDE 82 MMOL/L (98-107); CREATININE SERUM 0.68 MG/DL (0.60-1.30); GFR ESTIMATED > 60; GLUCOSE 96 MG/DL (70-105); MAGNESIUM 1.9 MG/DL (1.8-2.4); POTASSIUM 3.9 MMOL/L (3.6-5.0)
[2018-02-24 06:57] LABS: SODIUM 114 MMOL/L (135-145)
[2018-02-24 07:01] LABS: VANCOMYCIN,TROUGH 20.5 UG/ML (10.0-20.0)
[2018-02-24 07:43] VITALS: BP_SYST 113; BP_SYST 132; BP_DIAS 53; BP_DIAS 60
--- NOTE | 2018-02-24 08:16 | Progress Note ---
Subjective Date Seen by Provider: Feb 24, 2018 Time Seen by Provider: 08:45 Subjective/Events-last exam PT REPORTS THAT HE IS FEELING A LITTLE BIT BETTER TODAY WHEN COMPARED TO YESTERDAY. HE REPORTS THAT HE WANTS TO HAVE SOME HOPE AND HE IS WANTING TO KEEP TRYING TO GET BETTER WITH CHEMOTHERAPY IF POSSIBLE. HE DENIES CHEST PAIN, HE DOES HAVE SHORTNESS OF BREATH. Review of Systems General: Fatigue, Malaise HEENT: No Head Aches; Other (HEARING LOSS) Pulmonary: Dyspnea; No Cough Cardiovascular: No: Chest Pain Gastrointestinal: Abdominal Pain; No: Nausea Neurological: Weakness; No: Confusion Focused Exam Lactate Level 02/22/18 13:10: Lactic Acid Level 2.00 Objective Exam Last Set of Vital Signs Vital Signs Date Time Temp Pulse Resp B/P (MAP) Pulse Ox O2 Delivery O2 Flow Rate FiO2 02/24/18 07:43 98.6 96 20 113/53 (73) 99 Nasal Cannula 4.00 02/22/18 18:10 21 Capillary Refill : Less Than 3 Seconds I&O Intake and Output 02/24/18 00:00 Intake Total 2840 ml Output Total 450 ml Balance 2390 ml Intake Oral 1590 ml IV Total 1250 ml Output Urine Total 450 ml # Voids 6 General: Alert, Oriented X3, Cooperative HEENT: PERRLA Neck: Supple Lungs: Clear to Auscultation (UPPER LOBES CLEAR, LOWER LOBES WITH FAINT CRAKCLES) Heart: Regular Rate Abdomen: Other (DECREASED BOWEL SOUNDS WITH TENDER EDGE OF LIVER ACROSS ENTIRE UPPER ABDOMEN, INCREASED FLUID WAVE) Skin: Other (JAUNDICE) Psych/Mental Status: Mental Status NL, Mood NL Results Lab Laboratory Tests 02/24/18 05:53: White Blood Count 13.6H, Red Blood Count 2.93L, Hemoglobin 8.6L, Hematocrit 25L , Mean Corpuscular Volume 85, Mean Corpuscular Hemoglobin 29, Mean Corpuscular Hemoglobin Concent 35, Red Cell Distribution Width 18.0H, Platelet Count 521H, Mean Platelet Volume 8.8, Sodium Level 114*L, Potassium Level 3.9, Chloride Level 82L, Carbon Dioxide Level 22, Anion Gap 10, Blood Urea Nitrogen 16, Creatinine 0.68, Estimat Glomerular Filtration Rate > 60, BUN/Creatinine Ratio 24, Glucose Level 96, Calcium Level 7.9L, Corrected Calcium 8.9, Magnesium Level 1.9, Total Bilirubin 3.0H, Aspartate Amino Transf (AST/SGOT) 170H, Alanine Aminotransferase (ALT/SGPT) 33, Alkaline Phosphatase 241H, Total Protein 6.0L, Albumin 2.8L, Vancomycin Level Trough 20.5H Microbiology 02/22/18 Blood Culture - Preliminary, Resulted No growth Assessment/Plan Assessment/Plan Assess & Plan/Chief Complaint HYPONATREMIA PNEUMONIA MIXED HEPATOCELLULAR CARCINOMA CHOLANGIOCARCINOMA HYPERTENSION ANEMIA UNCERTAIN IF HEMATEMESIS VERSUS BLOOD STREAKED SPUTUM ASCITES LIVER FAILURE HX OF ALCOHOLISM HX OF PANCREATITIS HX OF TOBACCOISM HYPONATREMIA - STARTED ON IV FLUIDS - SODIUM LEVEL WAS ONLY 113 THIS MORNING - CHECK LABS TOMORROW - IV FLUIDS SLIGHTLY INCREASED. MONITOR SYMPTOMS AT THIS TIME - GENTLE HYDRATION DUE TO HIS ASCITES. MIXED HEPATOCELLULAR CARCINOMA - AND CHOLANGIOCARCINOMA - DISCUSSED WITH PT AND HIS - WE NEED MORE INFORMATION ABOUT THE PROPOSED TREATMENT AND I TALKED TO THE OFFICE NURSE OF DR. KUMAR TODAY - THEY WANT TO HOLD THE NEXAVAR AT THIS TIME. THEY WILL RESCHEDULE HIS APPT FOR 02/26/18. PNEUMONIA - PT STARTED ON PNEUMONIA PROTOCOL - VANCOMYCIN AND ZOSYN - MONITOR CHEST XRAY, LABS, BREATHING TREATMENTS. HYPERTENSION - MONITOR BLOOD PRESSURE AT THIS TIME I WILL HOLD OFF ON ANY MEDICATIONS. ANEMIA - DROP FROM YESTERDAY - BY 1 GRAM - WE WILL CHECK LABS IN MORNING I ANTICIPATE FURTHER DROPS WITH CONTINUED HYDRATION. UNCERTAIN IF HEMATEMESIS VERSUS BLOOD STREAKED SPUTUM - CONTINUE WITH PPI. ASCITES - WITH LIVER FAILURE DUE TO METASTATIC CANCER - DISCUSSED WITH DR. 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 WILL GENTLY HYDRATE PT FOR TREATMENT OF HYPONATREMIA BUT CLOSELY WATCH HIS ASCITES WITH DR. ARIAS AVAILABLE FOR FURTHER PARACENTESIS SHOULD IT BE NEEDED. HX OF ALCOHOLISM - SUPPORTIVE CARE HX OF PANCREATITIS HX OF TOBACCOISM DVT PROPHYLAXIS WITH SCD'S - HOLD OFF ON LOVENOX FOR NOW - GI PROPHYLAXIS WITH PPI DISCUSSED CODE STATUS WITH PATIENT - HE IS GOING TO "THINK ABOUT IT" AND GET BACK WITH ME ABOUT HIS CODE STATUS. HE IS AWARE THAT AT THIS TIME HE IS A FULL CODE UNLESS HE DECIDES OTHERWISE. Clinical Quality Measures Admission Status Admission Dx HYPONATREMIA PNEUMONIA MIXED HEPATOCELLULAR CARCINOMA CHOLANGIOCARCINOMA HYPERTENSION ANEMIA UNCERTAIN IF HEMATEMESIS VERSUS BLOOD STREAKED SPUTUM ASCITES LIVER FAILURE HX OF ALCOHOLISM HX OF PANCREATITIS HX OF TOBACCOISM DVT/VTE Risk/Contraindication: Risk Factor Score Per Nursin RFS Level Per Nursing on Admit: 4+=Very High PRAKASH JERRY MD Feb 24, 2018 08:16
--- NOTE | 2018-02-24 09:08 | Diagnostic Imaging Report ---
EXAMINATION: PA and lateral chest obtained at 9 AM. INDICATION: Pneumonia The appearance of the chest has worsened since the prior exam of 02/23/18 as there has been increase in atelectasis/infiltrate in the left perihilar region and left midlung. The left lower lobe atelectasis/infiltrate and fluid seen previously is again evident and essentially no different. There also is still a few patchy areas of increased density in the right midlung and right lung base. The lung apices are clear. The heart is stable in size. The mediastinum is not widened. The osseous structures are intact. IMPRESSION: The appearance of the chest has worsened since the prior exam as the atelectasis/infiltrate in the left perihilar region and left midlung has increased. A followup study would be recommended for continued evaluation. Dictated by: Dictated on workstation # [id number]
[2018-02-24] MEDS: VANCOMYCIN INJECTION 1,000 MG in NS (IVPB) 250 ML IV SCH ×2 (09:40→21:12)
[2018-02-24] MEDS: PANTOPRAZOLE 40 MG (PROTONIX) VIAL IV SCH ×2 (09:40→20:45)
[2018-02-24 12:00] VITALS: BP 120/50
[2018-02-24] MEDS: LORazepam 0.5 MG (ATIVAN) TABLET PO PRN (13:51)
[2018-02-24 15:20] VITALS: BP 118/56
--- NOTE | 2018-02-24 16:28 | Progress Note ---
Subjective Date Seen by Provider: Feb 24, 2018 Time Seen by Provider: 08:18 Subjective/Events-last exam Patient not having cough as bad. He did have a little bit of emesis earlier with maybe some blood streaking. Patient states he still having pain all over but the hydrocodone does help some. His white blood cell count down this morning but chest x-ray slightly worsening. Patient denies any nausea vomiting fever sweats chills or chest pain. Focused Exam Lactate Level 02/22/18 13:10: Lactic Acid Level 2.00 Objective Exam Vital Signs Date Time Temp Pulse Resp B/P (MAP) Pulse Ox O2 Delivery O2 Flow Rate FiO2 02/24/18 14:50 Nasal Cannula 4.00 02/24/18 12:00 96.6 102 18 120/50 (73) 98 Nasal Cannula 4.00 02/24/18 09:31 91 Nasal Cannula 4.00 02/24/18 08:00 Nasal Cannula 4.00 02/24/18 07:43 98.6 96 20 113/53 (73) 99 Nasal Cannula 4.00 02/24/18 07:02 Nasal Cannula 4.00 02/24/18 01:32 91 Nasal Cannula 4.00 02/24/18 00:00 98.4 91 20 101/51 (68) 93 Nasal Cannula 4.00 02/23/18 21:35 91 Nasal Cannula 4.00 02/23/18 20:30 98.8 98 18 121/57 (78) 98 Nasal Cannula 4.00 02/23/18 19:40 Nasal Cannula 4.00 02/23/18 18:40 88 Room Air 02/23/18 17:58 97.8 I & O 02/24/18 07:00 Intake Total 3645 ml Output Total 925 ml Balance 2720 ml Capillary Refill : Less Than 3 Seconds General Appearance: Chronically ill, Thin, Other (cachectic) HEENT: PERRL/EOMI, Scleral Icterus (L), Scleral Icterus (R) Neck: Non Tender, Supple Respiratory: Chest Non Tender, Crackles, Rhonci Cardiovascular: Regular Rate, Rhythm, Tachycardia Gastrointestinal: tenderness (Very minimal tenderness diffuse, no significant ascites, liver significantly enlarged with mass), mass Extremity: No Calf Tenderness Neurologic/Psychiatric: Alert, Oriented x3 Skin: Jaundice Lymphatic: No Adenopathy Results Lab Laboratory Tests 02/24/18 05:53: White Blood Count 13.6H, Red Blood Count 2.93L, Hemoglobin 8.6L, Hematocrit 25L , Mean Corpuscular Volume 85, Mean Corpuscular Hemoglobin 29, Mean Corpuscular Hemoglobin Concent 35, Red Cell Distribution Width 18.0H, Platelet Count 521H, Mean Platelet Volume 8.8, Sodium Level 114*L, Potassium Level 3.9, Chloride Level 82L, Carbon Dioxide Level 22, Anion Gap 10, Blood Urea Nitrogen 16, Creatinine 0.68, Estimat Glomerular Filtration Rate > 60, BUN/Creatinine Ratio 24, Glucose Level 96, Calcium Level 7.9L, Corrected Calcium 8.9, Magnesium Level 1.9, Total Bilirubin 3.0H, Aspartate Amino Transf (AST/SGOT) 170H, Alanine Aminotransferase (ALT/SGPT) 33, Alkaline Phosphatase 241H, Total Protein 6.0L, Albumin 2.8L, Vancomycin Level Trough 20.5H 02/24/18 09:05: Iron Level 31L, Total Iron Binding Capacity 115L, Unsaturated Iron Binding Capacity 84, Transferrin % Saturation 27 Microbiology 02/22/18 Blood Culture - Preliminary, Resulted No growth Assessment/Plan Assessment/Plan Assessment/Plan Hepatocellular carcinoma/cholangiocarcinoma with metastasis and ascites Hyponatremia Pneumonia left lower lobe Anemia Hematemesis versus blood-streaked sputum Alcoholism Patient white count is improving but chest x-ray slightly worsening on today's exam. Patient having less cough. Still less ascites and oriented normally has and would not do paracentesis at this time. Fluids being replaced would gently do so ascites does not reaccumulate Continue vancomycin and Zosyn Continue protonix due to questionable hematemesis No surgical intervention We'll follow Had long discussion with family regarding CODE STATUS and overall wishes. They will further discuss. Also discussed possible consultation with hospice. Overall prognosis poor Clinical Quality Measures DVT/VTE Risk/Contraindication: Risk Factor Score Per Nursin RFS Level Per Nursing on Admit: 4+=Very High SOHAM ARIAS DO Feb 24, 2018 16:28
[2018-02-24 19:45] VITALS: BP 128/55
[2018-02-24 21:14] VITALS: BP_SYST 128; BP_SYST 133; BP_DIAS 55; BP_DIAS 59
[2018-02-24] MEDS: MELATONIN 3 MG TABLET PO SCH (21:17)
[2018-02-25 00:34] VITALS: BP 109/51
[2018-02-25] MEDS: LORazepam 0.5 MG (ATIVAN) TABLET PO PRN (00:58)
[2018-02-25] MEDS: RT-ALBUTEROL/IPRATROPIUM 3 ML (DUONEB) VIAL INH SCH ×6 (02:48→22:32)
[2018-02-25 04:30] VITALS: BP 120/58
[2018-02-25] MEDS: LACTOBACILLUS Acidoph/Bulgar (LACTINEX/FLORANEX) TAB PO SCH ×3 (05:42→16:13)
[2018-02-25] MEDS: CALCIUM CARBONATE 600 MG (CALCARB) TAB PO SCH ×3 (05:42→16:12)
[2018-02-25] MEDS: HYDROcodone/APAP 5 MG/325 MG (LORTAB) TAB PO PRN ×2 (05:43→20:53)
[2018-02-25] MEDS: PIPERACILLIN/TAZO 4.5 GM/D5W 100 ML IV SCH ×2 (05:45)
[2018-02-25 06:01] LABS: HEMOGLOBIN 8.7 G/DL (13.3-17.7); RED BLOOD COUNT 2.87 10^6/uL (4.35-5.85)
[2018-02-25] MEDS: POTASSIUM CHLORIDE IV SCH ×4 (06:09→16:13)
[2018-02-25] MEDS: SODIUM CHLORIDE IV SCH ×4 (06:09→16:13)
[2018-02-25] MEDS: DEXTROSE IV SCH ×4 (06:09→16:13)
[2018-02-25 06:25] LABS: ALANINE AMINOTRANSFERASE 37 U/L (0-55); ALBUMIN 2.9 GM/DL (3.2-4.5); ALKALINE PHOSPHATASE 250 U/L (40-136); BUN/CREATININE RATIO 15; CALCIUM 7.9 MG/DL (8.5-10.1); CARBON DIOXIDE 20 MMOL/L (21-32); CHLORIDE 88 MMOL/L (98-107); CREATININE SERUM 0.68 MG/DL (0.60-1.30); GFR ESTIMATED > 60; GLUCOSE 88 MG/DL (70-105); POTASSIUM 4.2 MMOL/L (3.6-5.0); TOTAL PROTEIN 6.1 GM/DL (6.4-8.2)
[2018-02-25 06:34] LABS: SODIUM 117 MMOL/L (135-145)
[2018-02-25 08:00] VITALS: BP 113/55
--- NOTE | 2018-02-25 08:05 | Progress Note ---
Subjective Date Seen by Provider: Feb 25, 2018 Time Seen by Provider: 08:30 Subjective/Events-last exam PT IS A 57 Y/O MALE WHO HAS METASTATIC HEPATOBILIARY AND CHOLANGIOCARCINOMA. PT IS SHORT OF BREATH THIS MORNING, DOES FEEL LIKE HIS LEGS ARE SWOLLEN THIS MORNING. HE HAD A ROUGH NIGHT LAST NIGHT - WAS FRUSTRATED WITH HOSPITAL STAFF FOR KEEPING HIM FROM AMBULATING ON HIS OWN. Review of Systems General: Fatigue, Appetite (DECREASED), Other (THIN) HEENT: No Head Aches Pulmonary: Dyspnea; No Cough Cardiovascular: No: Chest Pain, Palpitations Gastrointestinal: Abdominal Pain; No: Nausea Genitourinary: Frequency Neurological: Weakness; No: Confusion Focused Exam Lactate Level 02/22/18 13:10: Lactic Acid Level 2.00 Objective Exam Last Set of Vital Signs Vital Signs Date Time Temp Pulse Resp B/P (MAP) Pulse Ox O2 Delivery O2 Flow Rate FiO2 02/25/18 06:53 Nasal Cannula 4.00 02/25/18 04:30 99.1 90 20 120/58 (78) 91 02/22/18 18:10 21 Capillary Refill : Less Than 3 Seconds I&O Intake and Output 02/25/18 00:00 Intake Total 4345 ml Output Total 1475 ml Balance 2870 ml Intake Oral 1890 ml IV Total 2455 ml Output Urine Total 1475 ml General: Alert, Oriented X3, Cooperative HEENT: PERRLA Neck: Supple Lungs: Clear to Auscultation (UPPER LOBES CLEAR, LOWER LOBES WITH FAINT CRAKCLES) Heart: Regular Rate Abdomen: Other (DECREASED BOWEL SOUNDS WITH TENDER EDGE OF LIVER ACROSS ENTIRE UPPER ABDOMEN, INCREASED FLUID WAVE) Skin: Other (JAUNDICE) Psych/Mental Status: Mental Status NL, Mood NL Results Lab Laboratory Tests 02/24/18 09:05: Iron Level 31L, Total Iron Binding Capacity 115L, Unsaturated Iron Binding Capacity 84, Transferrin % Saturation 27, Ferritin 469.7H, Vitamin B12 Level > 2000H, Folate 6.7 02/25/18 05:10: White Blood Count 11.0, Red Blood Count 2.87L, Hemoglobin 8.7L, Hematocrit 25L, Mean Corpuscular Volume 86, Mean Corpuscular Hemoglobin 30, Mean Corpuscular Hemoglobin Concent 35, Red Cell Distribution Width 18.0H, Platelet Count 480H, Mean Platelet Volume 9.0, Sodium Level 117*L, Potassium Level 4.2, Chloride Level 88L, Carbon Dioxide Level 20L, Anion Gap 9, Blood Urea Nitrogen 10, Creatinine 0.68, Estimat Glomerular Filtration Rate > 60, BUN/Creatinine Ratio 15, Glucose Level 88, Calcium Level 7.9L, Corrected Calcium 8.8, Total Bilirubin 3.0H, Aspartate Amino Transf (AST/SGOT) 180H, Alanine Aminotransferase (ALT/SGPT) 37, Alkaline Phosphatase 250H, Total Protein 6.1L, Albumin 2.9L Microbiology 02/22/18 Blood Culture - Preliminary, Resulted No growth Assessment/Plan Assessment/Plan Assess & Plan/Chief Complaint HYPONATREMIA PNEUMONIA MIXED HEPATOCELLULAR CARCINOMA CHOLANGIOCARCINOMA HYPERTENSION ANEMIA UNCERTAIN IF HEMATEMESIS VERSUS BLOOD STREAKED SPUTUM ASCITES LIVER FAILURE HX OF ALCOHOLISM HX OF PANCREATITIS HX OF TOBACCOISM HYPONATREMIA - STARTED ON IV FLUIDS - SODIUM LEVEL WAS ONLY 117 THIS MORNING - CHECK LABS TOMORROW - CONTINUE WITH IV FLUIDS . MONITOR SYMPTOMS AT THIS TIME - GENTLE HYDRATION DUE TO HIS ASCITES. MIXED HEPATOCELLULAR CARCINOMA - AND CHOLANGIOCARCINOMA - DISCUSSED WITH PT AND HIS - DR. KUMAR WANTS TO HOLD THE NEXAVAR AT THIS TIME. PNEUMONIA - PT STARTED ON PNEUMONIA PROTOCOL - VANCOMYCIN AND ZOSYN - MONITOR CHEST XRAY, LABS, BREATHING TREATMENTS. VANCOMYCIN LEVEL ELEVATED - WAITING ON REPEAT TROUGH HYPERTENSION - MONITOR BLOOD PRESSURE AT THIS TIME I WILL HOLD OFF ON ANY MEDICATIONS. ANEMIA - STABLE AROUND 8.7 - WE WILL CHECK LABS AGAIN IN MORNING I ANTICIPATE FURTHER DROPS WITH CONTINUED HYDRATION. UNCERTAIN IF HEMATEMESIS VERSUS BLOOD STREAKED SPUTUM - CONTINUE WITH PPI. ASCITES - WITH LIVER FAILURE DUE TO METASTATIC CANCER - DISCUSSED WITH DR. 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 WILL GENTLY HYDRATE PT FOR TREATMENT OF HYPONATREMIA BUT CLOSELY WATCH HIS ASCITES WITH DR. ARIAS AVAILABLE FOR FURTHER PARACENTESIS SHOULD IT BE NEEDED. HX OF ALCOHOLISM - SUPPORTIVE CARE HX OF PANCREATITIS HX OF TOBACCOISM DVT PROPHYLAXIS WITH SCD'S - HOLD OFF ON LOVENOX FOR NOW - GI PROPHYLAXIS WITH PPI PT IS DNR/DNI Clinical Quality Measures Admission Status Admission Dx HYPONATREMIA PNEUMONIA MIXED HEPATOCELLULAR CARCINOMA CHOLANGIOCARCINOMA HYPERTENSION ANEMIA UNCERTAIN IF HEMATEMESIS VERSUS BLOOD STREAKED SPUTUM ASCITES LIVER FAILURE HX OF ALCOHOLISM HX OF PANCREATITIS HX OF TOBACCOISM DVT/VTE Risk/Contraindication: Risk Factor Score Per Nursin RFS Level Per Nursing on Admit: 4+=Very High PRAKASH JERRY MD Feb 25, 2018 08:05
[2018-02-25] MEDS: VANCOMYCIN INJECTION 1,000 MG in NS (IVPB) 250 ML IV SCH (09:16)
[2018-02-25] MEDS: PANTOPRAZOLE 40 MG (PROTONIX) TAB PO SCH ×2 (09:23→20:53)
--- NOTE | 2018-02-25 11:06 | Diagnostic Imaging Report ---
PROCEDURE: US Abdomen, limited. TECHNIQUE: Multiple realtime grayscale images were obtained over the abdomen in various projections. INDICATION: Ascites. FINDINGS: Sonographic surveillance performed for planned paracentesis. IMPRESSION: A moderate amount of free fluid confirmed, limited exam performed for the purpose for a planned paracentesis. Dictated by: Dictated on workstation # [id number]
[2018-02-25] MEDS: PIPERACILLIN/TAZO 4.5 GM/NS 100 ML IV SCH ×4 (11:25→20:54)
--- NOTE | 2018-02-25 12:03 | Diagnostic Imaging Report ---
Indication: Pleural effusion. Findings: There is a small left pleural effusion. There appears be some left basilar atelectasis. Volume of the fluid appears to be approximately 385 cc. There is a septation within it. Impression: Small septated left pleural effusion. Dictated by: Dictated on workstation # [id number]
--- NOTE | 2018-02-25 14:32 | Diagnostic Imaging Report ---
Femoral chest at 1233. Indication: Respiratory distress. Findings: The appearance of the chest has worsened since 02/24/2018 as the left midlung and left lung base are now completely opacified by atelectasis/infiltrate and fluid. The patchy alveolar/interstitial infiltrates in the right lung base seen previously are again evident and no different. The upper lungs remain generally clear. The heart is obscured by the atelectasis/infiltrate and fluid involving the left lung base. The mediastinum is not widened. The osseous structures are intact. Impression: The appearance of the chest has worsened since the previous study as there has been an increase in atelectasis/infiltrate and fluid involving the left midlung and left lung base. A followup exam would be recommended for continued evaluation. Dictated by: Dictated on workstation # [id number]
[2018-02-25 15:40] VITALS: BP 118/58
[2018-02-25] MEDS ORDERED: TROUGH ORDER-PHARMACY XX NR (19:00)
[2018-02-25] MEDS: MELATONIN 3 MG TABLET PO SCH (20:53)
[2018-02-26] VITALS: BP 128/58
[2018-02-26] MEDS: HYDROcodone/APAP 5 MG/325 MG (LORTAB) TAB PO PRN ×2 (02:34→17:29)
[2018-02-26] MEDS: RT-ALBUTEROL/IPRATROPIUM 3 ML (DUONEB) VIAL INH SCH ×6 (03:52→22:39)
[2018-02-26] MEDS: PIPERACILLIN/TAZO 4.5 GM/NS 100 ML IV SCH ×6 (05:03→20:21)
[2018-02-26] MEDS: CALCIUM CARBONATE 600 MG (CALCARB) TAB PO SCH ×3 (06:04→17:29)
[2018-02-26] MEDS: SODIUM CHLORIDE IV SCH ×4 (06:04→13:03)
[2018-02-26] MEDS: POTASSIUM CHLORIDE IV SCH ×4 (06:04→13:03)
[2018-02-26] MEDS: LACTOBACILLUS Acidoph/Bulgar (LACTINEX/FLORANEX) TAB PO SCH ×3 (06:04→17:29)
[2018-02-26] MEDS: DEXTROSE IV SCH ×4 (06:04→13:03)
[2018-02-26] MEDS ORDERED: TROUGH ORDER-PHARMACY XX NR (07:00)
[2018-02-26 08:00] VITALS: BP 117/59
[2018-02-26] MEDS ORDERED: BISACODYL 10 MG SUPP (DULCOLAX) PR PRN (08:00)
[2018-02-26] MEDS ORDERED: BISACODYL 10 MG SUPP (DULCOLAX) PR NR (08:00)
[2018-02-26 08:07] LABS: HEMOGLOBIN 8.7 G/DL (13.3-17.7); MEAN PLATELET VOLUME 8.7 FL (7.4-10.4); RED BLOOD COUNT 2.89 10^6/uL (4.35-5.85); RED CELL DISTRIBUTION WIDTH 18.2 % (10.0-14.5); WHITE BLOOD COUNT 13.6 10^3/uL (4.3-11.0)
--- NOTE | 2018-02-26 08:11 | Diagnostic Imaging Report ---
Indication: Pneumonia. Comparison: None. Findings: Frontal and lateral views of the chest demonstrate unchanged atelectasis, effusion and infiltrate in the left base. There is some minimal infiltrate in the right upper lobe which is stable. There is no pneumothorax. Heart is prominent without pulmonary edema. Impression: Unchanged aeration of the lungs. Dictated by: Dictated on workstation # [id number]
[2018-02-26 08:37] LABS: ALANINE AMINOTRANSFERASE 38 U/L (0-55); ALBUMIN 2.8 GM/DL (3.2-4.5); ALKALINE PHOSPHATASE 247 U/L (40-136); BILIRUBIN,TOTAL 3.3 MG/DL (0.1-1.0); BUN/CREATININE RATIO 15; CALCIUM 7.9 MG/DL (8.5-10.1); CARBON DIOXIDE 20 MMOL/L (21-32); CHLORIDE 89 MMOL/L (98-107); CREATININE SERUM 0.62 MG/DL (0.60-1.30); GFR ESTIMATED > 60; GLUCOSE 94 MG/DL (70-105); POTASSIUM 4.1 MMOL/L (3.6-5.0); TOTAL PROTEIN 6.1 GM/DL (6.4-8.2)
--- NOTE | 2018-02-26 08:38 | Progress Note ---
Subjective Date Seen by Provider: Feb 26, 2018 Time Seen by Provider: 10:21 Subjective/Events-last exam DUPLICATE Objective Exam Last Set of Vital Signs Vital Signs Date Time Temp Pulse Resp B/P (MAP) Pulse Ox O2 Delivery O2 Flow Rate FiO2 02/26/18 06:42 92 Nasal Cannula 4.00 02/26/18 00:00 97.9 104 24 128/58 (81) 02/22/18 18:10 21 Capillary Refill : Less Than 3 Seconds I&O Intake and Output 02/26/18 00:00 Intake Total 2570 ml Output Total 1350 ml Balance 1220 ml Intake Oral 1120 ml IV Total 1450 ml Output Urine Total 1350 ml # Voids 1 General: Alert, Oriented X3, Cooperative HEENT: PERRLA Neck: Supple Lungs: Clear to Auscultation (UPPER LOBES CLEAR, LOWER LOBES WITH FAINT CRAKCLES) Heart: Regular Rate Abdomen: Other (DECREASED BOWEL SOUNDS WITH TENDER EDGE OF LIVER ACROSS ENTIRE UPPER ABDOMEN, INCREASED FLUID WAVE) Skin: Other (JAUNDICE) Psych/Mental Status: Mental Status NL, Mood NL Results Lab Laboratory Tests 02/25/18 19:22: Vancomycin Level Trough 21.6H 02/26/18 07:55: Vancomycin Level Trough 14.5, White Blood Count 13.6H, Red Blood Count 2.89L, Hemoglobin 8.7L, Hematocrit 25L, Mean Corpuscular Volume 87, Mean Corpuscular Hemoglobin 30, Mean Corpuscular Hemoglobin Concent 35, Red Cell Distribution Width 18.2H, Platelet Count 514H, Mean Platelet Volume 8.7, Potassium Level 4.1 , Chloride Level 89L, Carbon Dioxide Level 20L, Anion Gap 8, Blood Urea Nitrogen 9, Creatinine 0.62, Estimat Glomerular Filtration Rate > 60, BUN/ Creatinine Ratio 15, Glucose Level 94, Calcium Level 7.9L, Corrected Calcium 8.9 , Total Bilirubin 3.3H, Aspartate Amino Transf (AST/SGOT) 167H, Alanine Aminotransferase (ALT/SGPT) 38, Alkaline Phosphatase 247H, Total Protein 6.1L, Albumin 2.8L Microbiology 02/22/18 Blood Culture - Preliminary, Resulted No growth Assessment/Plan Assessment/Plan Assess & Plan/Chief Complaint DUPLICATE NOTE Clinical Quality Measures Admission Status Admission Dx HYPONATREMIA PNEUMONIA MIXED HEPATOCELLULAR CARCINOMA CHOLANGIOCARCINOMA HYPERTENSION ANEMIA UNCERTAIN IF HEMATEMESIS VERSUS BLOOD STREAKED SPUTUM ASCITES LIVER FAILURE HX OF ALCOHOLISM HX OF PANCREATITIS HX OF TOBACCOISM DVT/VTE Risk/Contraindication: Risk Factor Score Per Nursin RFS Level Per Nursing on Admit: 4+=Very High PRAKASH JERRY MD Feb 26, 2018 08:38
[2018-02-26 08:40] LABS: SODIUM 117 MMOL/L (135-145)
[2018-02-26] MEDS ORDERED: FUROSEMIDE 40 MG/4 ML INJ (LASIX) IVP NR (09:30)
[2018-02-26] MEDS: PANTOPRAZOLE 40 MG (PROTONIX) TAB PO SCH ×2 (09:35→20:17)
[2018-02-26] MEDS: VANCOMYCIN 1250 MG/NS 250 ML IVPB IV SCH ×2 (09:47)
--- NOTE | 2018-02-26 09:56 | Progress Note ---
Subjective Date Seen by Provider: Feb 26, 2018 Time Seen by Provider: 07:45 Subjective/Events-last exam FAMILY MEETING TODAY - PT PRESENT, ABBY, FATHER MAGDALENO, STEP-MOTHER ANNIKA, DR. ARIAS, MYSELF, YING - FRIEND AND EXECUTIVE AT [employer], AND NURSE PRACTITIONER STUDENT ANA. - TOTAL TIME SPENT 1 HOUR. DAMARIS AND HIS FAMILY HAD MULTIPLE QUESTIONS ABOUT HIS ILLNESS, TREATMENT OPTIONS , CURRENT MASS BURDEN, PLEURAL EFFUSION, PERITONEAL FLUID, AND QUALITY OF LIFE. SUMMARY OF CONVERSATION WILL BE IN ASSESSMENT AND PLAN. PT REPORTS THAT HE IS FEELING LIKE HIS LEGS ARE SWOLLEN TODAY. HE DENIES WORSENING SHORTNESS OF BREATH, DIZZINESS, COUGH, HEMATEMESIS. Review of Systems General: Fatigue HEENT: No Head Aches, No Dysphasia Pulmonary: Dyspnea; No Cough Cardiovascular: No: Chest Pain, Palpitations Gastrointestinal: Abdominal Pain; No: Nausea Genitourinary: Frequency Neurological: Weakness; No: Confusion Objective Exam Last Set of Vital Signs Vital Signs Date Time Temp Pulse Resp B/P (MAP) Pulse Ox O2 Delivery O2 Flow Rate FiO2 02/26/18 08:00 98.2 104 22 117/59 (78) 95 Nasal Cannula 3.50 02/22/18 18:10 21 Capillary Refill : Less Than 3 Seconds I&O Intake and Output 02/26/18 00:00 Intake Total 2570 ml Output Total 1350 ml Balance 1220 ml Intake Oral 1120 ml IV Total 1450 ml Output Urine Total 1350 ml # Voids 1 General: Alert, Oriented X3, Cooperative HEENT: PERRLA Neck: Supple Lungs: Clear to Auscultation (UPPER LOBES CLEAR, LOWER LOBES WITH FAINT CRAKCLES) Heart: Regular Rate, Other (EDEMA BILATERAL LOWER EXTREMITIES) Abdomen: Other (DECREASED BOWEL SOUNDS WITH TENDER EDGE OF LIVER ACROSS ENTIRE UPPER ABDOMEN, INCREASED FLUID WAVE) Skin: Other (JAUNDICE) Psych/Mental Status: Mental Status NL, Mood NL Results Lab Laboratory Tests 02/25/18 19:22: Vancomycin Level Trough 21.6H 02/26/18 07:55: Vancomycin Level Trough 14.5, White Blood Count 13.6H, Red Blood Count 2.89L, Hemoglobin 8.7L, Hematocrit 25L, Mean Corpuscular Volume 87, Mean Corpuscular Hemoglobin 30, Mean Corpuscular Hemoglobin Concent 35, Red Cell Distribution Width 18.2H, Platelet Count 514H, Mean Platelet Volume 8.7, Sodium Level 117*L, Potassium Level 4.1, Chloride Level 89L, Carbon Dioxide Level 20L, Anion Gap 8, Blood Urea Nitrogen 9, Creatinine 0.62, Estimat Glomerular Filtration Rate > 60 , BUN/Creatinine Ratio 15, Glucose Level 94, Calcium Level 7.9L, Corrected Calcium 8.9, Total Bilirubin 3.3H, Aspartate Amino Transf (AST/SGOT) 167H, Alanine Aminotransferase (ALT/SGPT) 38, Alkaline Phosphatase 247H, Total Protein 6.1L, Albumin 2.8L Microbiology 02/22/18 Blood Culture - Preliminary, Resulted No growth Assessment/Plan Assessment/Plan Assess & Plan/Chief Complaint HYPONATREMIA PNEUMONIA MIXED HEPATOCELLULAR CARCINOMA CHOLANGIOCARCINOMA HYPERTENSION ANEMIA UNCERTAIN IF HEMATEMESIS VERSUS BLOOD STREAKED SPUTUM ASCITES LIVER FAILURE HX OF ALCOHOLISM HX OF PANCREATITIS HX OF TOBACCOISM EDEMA CONSTIPATION HYPONATREMIA - STARTED ON IV FLUIDS - SODIUM LEVEL WAS ONLY 117 THIS MORNING - CHECK LABS TOMORROW - CONTINUE WITH IV FLUIDS . MONITOR SYMPTOMS AT THIS TIME - GENTLE HYDRATION DUE TO HIS ASCITES. MIXED HEPATOCELLULAR CARCINOMA - AND CHOLANGIOCARCINOMA - DISCUSSED WITH PT AND HIS - I HAVE TALKED TO DR. KUMAR 02/26/18 - SHE STATES THAT SHE WANTS TO CONTINUE TO HOLD THE NEXAVAR DUE TO HIS PNEUMONIA AND CURRENT ILLNESS. SHE REPORTS THAT DUE TO THE POTENTIAL TOXICITY AND HOW HARD IT IS ON THE LIVER, SHE WANTS TO WAIT UNTIL THE OTHER TREATMENTS FOR HIS ACUTE ILLNESS ARE STOPPED BEFORE FURTHER TAXING HIS BODY. PNEUMONIA - PT STARTED ON PNEUMONIA PROTOCOL - VANCOMYCIN AND ZOSYN - MONITOR CHEST XRAY, LABS, BREATHING TREATMENTS. CONTINUE WITH VANCOMYCIN - MONITOR TROUGH. WHITE COUNT HAS INCREASED TODAY. HYPERTENSION - MONITOR BLOOD PRESSURE AT THIS TIME I WILL HOLD OFF ON ANY MEDICATIONS. ANEMIA - STABLE AROUND 8.7 - WE WILL CHECK LABS AGAIN IN MORNING I ANTICIPATE FURTHER DROPS WITH CONTINUED HYDRATION. ASCITES - WITH LIVER FAILURE DUE TO METASTATIC CANCER - DISCUSSED WITH DR. 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 WILL GENTLY HYDRATE PT FOR TREATMENT OF HYPONATREMIA BUT CLOSELY WATCH HIS ASCITES WITH DR. ARIAS AVAILABLE FOR FURTHER PARACENTESIS SHOULD IT BE NEEDED. EDEMA - GIVE DOSE OF LASIX TODAY. CONSTIPATION - DULCOLAX SUPPOSITORY TODAY HX OF ALCOHOLISM - SUPPORTIVE CARE HX OF PANCREATITIS HX OF TOBACCOISM DVT PROPHYLAXIS WITH SCD'S - HOLD OFF ON LOVENOX FOR NOW - GI PROPHYLAXIS WITH PPI PT IS DNR/DNI PROLONGED FAMILY DISCUSSED - 1 HOUR SPENT WITH FAMILY AND PATIENT - HE WILL CONTINUE WITH CURRENT TREATMENT OF HIS PNEUMONIA, HYPONATREMIA WE WILL PLAN ON HOLDING THE NEXAVAR AT THIS TIME THIS IS WHAT THE ONCOLOGIST WOULD PREFER. THEY ALL WERE TOLD AND VOCALIZED UNDERSTANDING THAT WITHOUT THE NEXAVAR THE TUMOR BURDEN WILL CONTINUE TO INCREASE AND HE WILL HAVE FURTHER WORSENING OF HIS DISEASE PROCESS WITH MORE FLUID BUILD UP IN HIS ABDOMEN, AND PLEURAL SPACE WHICH WILL COMPLICATE HIS TREATMENT. DR. ARIAS INFORMED THEM THAT THIS TREATMENT WITH NEXAVAR WILL BE PALLIATIVE IN NATURE AND TO ANTICIPATE THAT IF THIS IS INITIATED IT WILL PROLONG HIS LIFE, BUT NOT LIKELY IMPROVE THE QUALITY OF HIS LIFE FOR LONG. Clinical Quality Measures Admission Status Admission Dx HYPONATREMIA PNEUMONIA MIXED HEPATOCELLULAR CARCINOMA CHOLANGIOCARCINOMA HYPERTENSION ANEMIA UNCERTAIN IF HEMATEMESIS VERSUS BLOOD STREAKED SPUTUM ASCITES LIVER FAILURE HX OF ALCOHOLISM HX OF PANCREATITIS HX OF TOBACCOISM DVT/VTE Risk/Contraindication: Risk Factor Score Per Nursin RFS Level Per Nursing on Admit: 4+=Very High PRAKASH JERRY MD Feb 26, 2018 09:56
[2018-02-26 15:45] VITALS: BP 140/67
--- NOTE | 2018-02-26 16:22 | Progress Note ---
Subjective Date Seen by Provider: Feb 25, 2018 Time Seen by Provider: 16:17 Subjective/Events-last exam Patient wbc down slightly. Not having as bad of cough. Patient feeling weak. Patient pain all over, about the same. Some shortness of breath at times No new complaints. Denies n/v fever sweats chills. Objective Exam Vital Signs Date Time Temp Pulse Resp B/P (MAP) Pulse Ox O2 Delivery O2 Flow Rate FiO2 02/26/18 14:47 93 Nasal Cannula 3.50 02/26/18 10:47 92 Nasal Cannula 3.50 02/26/18 08:00 98.2 104 22 117/59 (78) 95 Nasal Cannula 3.50 02/26/18 08:00 Nasal Cannula 4.00 02/26/18 06:42 92 Nasal Cannula 4.00 02/26/18 00:00 97.9 104 24 128/58 (81) 93 Nasal Cannula 3.50 02/25/18 22:32 92 Nasal Cannula 4.00 02/25/18 20:00 Nasal Cannula 4.00 I & O 02/26/18 07:00 Intake Total 2850 ml Output Total 1200 ml Balance 1650 ml Capillary Refill : Less Than 3 SecondsLess Than 3 Seconds General Appearance: Chronically ill, Thin, Other (cachectic) HEENT: PERRL/EOMI, Scleral Icterus (L), Scleral Icterus (R) Neck: Non Tender, Supple Respiratory: Chest Non Tender, Crackles, Rhonci Cardiovascular: Regular Rate, Rhythm, Tachycardia Gastrointestinal: tenderness (Very minimal tenderness diffuse, no significant ascites, liver significantly enlarged with mass), mass Extremity: No Calf Tenderness Neurologic/Psychiatric: Alert, Oriented x3 Skin: Jaundice Lymphatic: No Adenopathy Results Lab Laboratory Tests 02/25/18 19:22: Vancomycin Level Trough 21.6H 02/26/18 07:55: Vancomycin Level Trough 14.5, White Blood Count 13.6H, Red Blood Count 2.89L, Hemoglobin 8.7L, Hematocrit 25L, Mean Corpuscular Volume 87, Mean Corpuscular Hemoglobin 30, Mean Corpuscular Hemoglobin Concent 35, Red Cell Distribution Width 18.2H, Platelet Count 514H, Mean Platelet Volume 8.7, Sodium Level 117*L, Potassium Level 4.1, Chloride Level 89L, Carbon Dioxide Level 20L, Anion Gap 8, Blood Urea Nitrogen 9, Creatinine 0.62, Estimat Glomerular Filtration Rate > 60 , BUN/Creatinine Ratio 15, Glucose Level 94, Calcium Level 7.9L, Corrected Calcium 8.9, Total Bilirubin 3.3H, Aspartate Amino Transf (AST/SGOT) 167H, Alanine Aminotransferase (ALT/SGPT) 38, Alkaline Phosphatase 247H, Total Protein 6.1L, Albumin 2.8L Microbiology 02/22/18 Blood Culture - Preliminary, Resulted No growth Assessment/Plan Assessment/Plan Assessment/Plan Hepatocellular carcinoma/cholangiocarcinoma with metastasis and ascites Hyponatremia Pneumonia left lower lobe Anemia Hematemesis versus blood-streaked sputum Alcoholism Patient white count is improving but chest x-ray slightly worsening had u/s showing septated small effusion. Still less ascites than normally has and would not do paracentesis at this time. Fluids being replaced would gently do so ascites does not reaccumulate Continue vancomycin and Zosyn Continue protonix due to questionable hematemesis No surgical intervention We'll follow Had long discussion with family regarding CODE STATUS and overall wishes again. He would like to meet with Dr. Camp and myselft and family in the morning. Overall prognosis poor Clinical Quality Measures DVT/VTE Risk/Contraindication: Risk Factor Score Per Nursin RFS Level Per Nursing on Admit: 4+=Very High SOHAM ARIAS DO Feb 26, 2018 16:22
--- NOTE | 2018-02-26 16:35 | Progress Note ---
Subjective Date Seen by Provider: Feb 26, 2018 Time Seen by Provider: 08:00 Subjective/Events-last exam Patient no new complaints. WBC up. Feels like needs bm. Continues to feel weak. Long family Discussion with Family and Dr. Camp. Objective Exam Vital Signs Date Time Temp Pulse Resp B/P (MAP) Pulse Ox O2 Delivery O2 Flow Rate FiO2 02/26/18 14:47 93 Nasal Cannula 3.50 02/26/18 10:47 92 Nasal Cannula 3.50 02/26/18 08:00 98.2 104 22 117/59 (78) 95 Nasal Cannula 3.50 02/26/18 08:00 Nasal Cannula 4.00 02/26/18 06:42 92 Nasal Cannula 4.00 02/26/18 00:00 97.9 104 24 128/58 (81) 93 Nasal Cannula 3.50 02/25/18 22:32 92 Nasal Cannula 4.00 02/25/18 20:00 Nasal Cannula 4.00 I & O 02/26/18 07:00 Intake Total 2850 ml Output Total 1200 ml Balance 1650 ml Capillary Refill : Less Than 3 SecondsLess Than 3 Seconds General Appearance: Chronically ill, Thin, Other (cachectic) HEENT: PERRL/EOMI, Scleral Icterus (L), Scleral Icterus (R) Neck: Non Tender, Supple Respiratory: Chest Non Tender, Crackles, Rhonci Cardiovascular: Regular Rate, Rhythm, Tachycardia Gastrointestinal: tenderness (Very minimal tenderness diffuse, slight increase in ascites, liver significantly enlarged with mass, abdominal wall edema), mass Extremity: No Calf Tenderness Neurologic/Psychiatric: Alert, Oriented x3 Skin: Jaundice Lymphatic: No Adenopathy Results Lab Laboratory Tests 02/25/18 19:22: Vancomycin Level Trough 21.6H 02/26/18 07:55: Vancomycin Level Trough 14.5, White Blood Count 13.6H, Red Blood Count 2.89L, Hemoglobin 8.7L, Hematocrit 25L, Mean Corpuscular Volume 87, Mean Corpuscular Hemoglobin 30, Mean Corpuscular Hemoglobin Concent 35, Red Cell Distribution Width 18.2H, Platelet Count 514H, Mean Platelet Volume 8.7, Sodium Level 117*L, Potassium Level 4.1, Chloride Level 89L, Carbon Dioxide Level 20L, Anion Gap 8, Blood Urea Nitrogen 9, Creatinine 0.62, Estimat Glomerular Filtration Rate > 60 , BUN/Creatinine Ratio 15, Glucose Level 94, Calcium Level 7.9L, Corrected Calcium 8.9, Total Bilirubin 3.3H, Aspartate Amino Transf (AST/SGOT) 167H, Alanine Aminotransferase (ALT/SGPT) 38, Alkaline Phosphatase 247H, Total Protein 6.1L, Albumin 2.8L Microbiology 02/22/18 Blood Culture - Preliminary, Resulted No growth Assessment/Plan Assessment/Plan Assessment/Plan Hepatocellular carcinoma/cholangiocarcinoma with metastasis and ascites Hyponatremia Pneumonia left lower lobe Anemia Hematemesis versus blood-streaked sputum Alcoholism small septated left pleural effusion. patient to continue medical management goal is to improve current pneumonia to start chemo treatment we have discussed that with chemo would not be curative but could help quality of life, if unable to start due to illness, he will continue to decline. also discussed hospice care at this time will not drain abdomen unless builds up more and more symptomatic from ascites Clinical Quality Measures DVT/VTE Risk/Contraindication: Risk Factor Score Per Nursin RFS Level Per Nursing on Admit: 4+=Very High SOHAM ARIAS DO Feb 26, 2018 16:35
[2018-02-26] MEDS: MELATONIN 3 MG TABLET PO SCH (20:17)
[2018-02-27] VITALS: BP 146/77
[2018-02-27] MEDS: DEXTROSE IV SCH ×2 (00:50)
[2018-02-27] MEDS: POTASSIUM CHLORIDE IV SCH ×2 (00:50)
[2018-02-27] MEDS: SODIUM CHLORIDE IV SCH ×2 (00:50)
[2018-02-27] MEDS: RT-ALBUTEROL/IPRATROPIUM 3 ML (DUONEB) VIAL INH SCH ×6 (02:32→22:50)
[2018-02-27] MEDS: HYDROcodone/APAP 5 MG/325 MG (LORTAB) TAB PO PRN ×2 (02:36→22:40)
[2018-02-27 05:05] LABS: HEMOGLOBIN 8.7 G/DL (13.3-17.7); MEAN PLATELET VOLUME 8.8 FL (7.4-10.4); RED BLOOD COUNT 2.86 10^6/uL (4.35-5.85); RED CELL DISTRIBUTION WIDTH 17.9 % (10.0-14.5)
[2018-02-27] MEDS: PIPERACILLIN/TAZO 4.5 GM/NS 100 ML IV SCH ×6 (05:09→20:10)
[2018-02-27 05:27] LABS: ALANINE AMINOTRANSFERASE 37 U/L (0-55); ALBUMIN 2.8 GM/DL (3.2-4.5); ALKALINE PHOSPHATASE 267 U/L (40-136); BILIRUBIN,TOTAL 3.1 MG/DL (0.1-1.0); BUN/CREATININE RATIO 13; CARBON DIOXIDE 18 MMOL/L (21-32); CHLORIDE 92 MMOL/L (98-107); CREATININE SERUM 0.63 MG/DL (0.60-1.30); GFR ESTIMATED > 60; GLUCOSE 71 MG/DL (70-105); POTASSIUM 4.1 MMOL/L (3.6-5.0)
[2018-02-27 05:35] LABS: SODIUM 119 MMOL/L (135-145)
[2018-02-27] MEDS: CALCIUM CARBONATE 600 MG (CALCARB) TAB PO SCH ×3 (06:24→16:28)
[2018-02-27] MEDS: LACTOBACILLUS Acidoph/Bulgar (LACTINEX/FLORANEX) TAB PO SCH ×3 (06:24→16:28)
[2018-02-27 08:00] VITALS: BP 112/56
[2018-02-27] MEDS: VANCOMYCIN 1250 MG/NS 250 ML IVPB IV SCH ×2 (08:14)
[2018-02-27] MEDS: PANTOPRAZOLE 40 MG (PROTONIX) TAB PO SCH ×2 (08:14→20:10)
--- NOTE | 2018-02-27 11:04 | Progress Note-Hospitalist ---
Subjective HPI/CC On Admission Date Seen by Provider: Feb 27, 2018 Time Seen by Provider: 10:00 Subjective/Events-last exam had wanted a daypass but with sodium level of 119 below the 120 seizure threshold I told her that I would not be comfortable with him leaving the hospital and especially since she told me he has had seizures before when he runs a fever Pt very drowsy and encephalopathic Pt with tense ascites No fever wbc is elevated at bedside Checked meds and labs Changed IVF to NS and fluid restriction initiated to help hyponatremia Review of Systems General: Fatigue Objective Exam Vital Signs Vital Signs Date Time Temp Pulse Resp B/P (MAP) Pulse Ox O2 Delivery O2 Flow Rate FiO2 02/27/18 16:05 99.6 107 20 131/66 (87) 95 Nasal Cannula 4.00 02/22/18 18:10 21 Capillary Refill : Less Than 3 SecondsLess Than 3 Seconds General Appearance: No Apparent Distress, WD/WN, Chronically ill, Other (drowsy , very ill, weak, frail, jaundiced) Respiratory: Lungs Clear, Normal Breath Sounds Gastrointestinal: Distended Neurologic/Psychiatric: Disoriented Results/Procedures Lab Laboratory Tests 02/27/18 04:50 Patient resulted labs reviewed. Assessment/Plan Assessment and Plan Assess & Plan/Chief Complaint Per PCP: Hepatocellular carcinoma/cholangiocarcinoma with metastasis and ascites Hyponatremia Pneumonia left lower lobe Anemia Hematemesis versus blood-streaked sputum Alcoholism Plan: Fluid restriction Por prognosis Check ammonia tomorrow with am labs DNR Diagnosis/Problems Diagnosis/Problems (1) Liver cancer, primary, with metastasis from liver to other site Status: Acute (2) Hyponatremia Status: Acute (3) Left lower lobe pneumonia Status: Acute Qualifiers: Pneumonia type: due to unspecified organism Qualified Codes: J18.1 - Lobar pneumonia, unspecified organism (4) Alcohol abuse Status: Chronic (5) Leukocytosis Status: Acute Qualifiers: Leukocytosis type: leukemoid reaction Qualified Codes: D72.823 - Leukemoid reaction (6) Coagulopathy Status: Acute Clinical Quality Measures DVT/VTE Risk/Contraindication: Risk Factor Score Per Nursin RFS Level Per Nursing on Admit: 4+=Very High REGIS LATHAM DO Feb 27, 2018 11:04
[2018-02-27] MEDS: NS IV 1000 ML 1,000 ML IV SCH ×2 (12:14→20:32)
--- NOTE | 2018-02-27 12:52 | Progress Note (SOAP) ---
Subjective Date Seen by Provider: Feb 27, 2018 Time Seen by Provider: 12:00 Subjective/Events-last exam doing ok. pain controlled. does have significant ascites however asymptomatic at this time. no SOB. hyponatremic Objective Exam Vital Signs Date Time Temp Pulse Resp B/P (MAP) Pulse Ox O2 Delivery O2 Flow Rate FiO2 02/27/18 10:32 94 Nasal Cannula 3.00 02/27/18 08:00 95 Nasal Cannula 3.00 02/27/18 08:00 96.1 96 18 112/56 (74) 91 Nasal Cannula 3.50 02/27/18 07:40 95 Nasal Cannula 3.00 02/27/18 00:00 98.7 102 22 146/77 (100) 90 Nasal Cannula 3.50 02/26/18 19:02 95 Nasal Cannula 3.50 02/26/18 15:45 98.0 98 16 140/67 (91) 92 Nasal Cannula 3.50 02/26/18 14:47 93 Nasal Cannula 3.50 I & O 02/27/18 07:00 Intake Total 4352.5 ml Output Total 1150 ml Balance 3202.5 ml Capillary Refill : Less Than 3 SecondsLess Than 3 Seconds General Appearance: No Apparent Distress HEENT: PERRL/EOMI Neck: Full Range of Motion Respiratory: Chest Non Tender, Normal Breath Sounds Cardiovascular: Regular Rate, Rhythm Gastrointestinal: distended, other (non-tender, positive fluid shift wave) Extremity: Normal Capillary Refill Neurologic/Psychiatric: Alert, Oriented x3 Skin: Normal Color Lymphatic: No Adenopathy Results Lab Laboratory Tests 02/27/18 04:50: White Blood Count 14.0H, Red Blood Count 2.86L, Hemoglobin 8.7L, Hematocrit 25L , Mean Corpuscular Volume 86, Mean Corpuscular Hemoglobin 30, Mean Corpuscular Hemoglobin Concent 35, Red Cell Distribution Width 17.9H, Platelet Count 498H, Mean Platelet Volume 8.8, Sodium Level 119*L, Potassium Level 4.1, Chloride Level 92L, Carbon Dioxide Level 18L, Anion Gap 9, Blood Urea Nitrogen 8, Creatinine 0.63, Estimat Glomerular Filtration Rate > 60, BUN/Creatinine Ratio 13, Glucose Level 71, Calcium Level 8.0L, Corrected Calcium 9.0, Total Bilirubin 3.1H, Aspartate Amino Transf (AST/SGOT) 154H, Alanine Aminotransferase (ALT/SGPT) 37, Alkaline Phosphatase 267H, Total Protein 6.0L, Albumin 2.8L Microbiology 02/22/18 Blood Culture - Preliminary, Resulted No growth Assessment/Plan Assessment/Plan Assess & Plan/Chief Complaint metastatic hepatocellular carcinoma. palliative care. will monitor ascites and if becomes symptomatic will proceed with paracentesis. Clinical Quality Measures DVT/VTE Risk/Contraindication: Risk Factor Score Per Nursin RFS Level Per Nursing on Admit: 4+=Very High CAITY COSTA MD Feb 27, 2018 12:52 pm
[2018-02-27 16:05] VITALS: BP 131/66
[2018-02-27] MEDS: MELATONIN 3 MG TABLET PO SCH (20:10)
[2018-02-28] VITALS: BP 119/57
[2018-02-28] MEDS: LORazepam 0.5 MG (ATIVAN) TABLET PO PRN ×2 (01:15→15:59)
[2018-02-28] MEDS: RT-ALBUTEROL/IPRATROPIUM 3 ML (DUONEB) VIAL INH SCH ×6 (02:22→22:10)
[2018-02-28] MEDS: HYDROcodone/APAP 5 MG/325 MG (LORTAB) TAB PO PRN ×3 (02:28→19:31)
[2018-02-28] MEDS: PIPERACILLIN/TAZO 4.5 GM/NS 100 ML IV SCH ×6 (05:03→20:23)
[2018-02-28] MEDS: CALCIUM CARBONATE 600 MG (CALCARB) TAB PO SCH ×3 (06:06→16:04)
[2018-02-28] MEDS: LACTOBACILLUS Acidoph/Bulgar (LACTINEX/FLORANEX) TAB PO SCH ×3 (06:06→16:04)
[2018-02-28] MEDS: PANTOPRAZOLE 40 MG (PROTONIX) TAB PO SCH ×2 (08:29→20:23)
[2018-02-28] MEDS: VANCOMYCIN 1250 MG/NS 250 ML IVPB IV SCH ×2 (08:29)
[2018-02-28 08:48] VITALS: BP 128/60
[2018-02-28 08:59] LABS: ALANINE AMINOTRANSFERASE 36 U/L (0-55); ALBUMIN 2.8 GM/DL (3.2-4.5); ALKALINE PHOSPHATASE 264 U/L (40-136); AMMONIA 60 UMOL/L (11-32); BILIRUBIN,TOTAL 2.8 MG/DL (0.1-1.0); BUN/CREATININE RATIO 12; CALCIUM 8.2 MG/DL (8.5-10.1); CARBON DIOXIDE 20 MMOL/L (21-32); CHLORIDE 92 MMOL/L (98-107); CREATININE SERUM 0.68 MG/DL (0.60-1.30); GFR ESTIMATED > 60; GLUCOSE 84 MG/DL (70-105); POTASSIUM 4.3 MMOL/L (3.6-5.0); TOTAL PROTEIN 6.1 GM/DL (6.4-8.2)
[2018-02-28] MEDS: NS IV 1000 ML 1,000 ML IV SCH ×2 (09:01→20:55)
[2018-02-28 09:08] LABS: SODIUM 121 MMOL/L (135-145)
[2018-02-28 09:12] LABS: HEMOGLOBIN 8.8 G/DL (13.3-17.7); MEAN PLATELET VOLUME 8.8 FL (7.4-10.4); RED BLOOD COUNT 2.97 10^6/uL (4.35-5.85); RED CELL DISTRIBUTION WIDTH 18.3 % (10.0-14.5); WHITE BLOOD COUNT 15.3 10^3/uL (4.3-11.0)
--- NOTE | 2018-02-28 10:41 | Progress Note (SOAP) ---
Subjective Date Seen by Provider: Feb 28, 2018 Time Seen by Provider: 10:30 Subjective/Events-last exam doing ok. status unchanged. no increased abdominal girth, no SOB. pain controlled. Objective Exam Vital Signs Date Time Temp Pulse Resp B/P (MAP) Pulse Ox O2 Delivery O2 Flow Rate FiO2 02/28/18 08:48 96.7 100 20 128/60 (82) 94 Nasal Cannula 4.00 02/28/18 08:00 95 Nasal Cannula 3.00 02/28/18 07:01 93 Nasal Cannula 3.00 02/28/18 02:22 90 Nasal Cannula 3.00 02/28/18 00:00 97.8 95 20 119/57 (77) 93 Nasal Cannula 4.00 02/27/18 16:05 99.6 107 20 131/66 (87) 95 Nasal Cannula 4.00 02/27/18 14:30 94 Nasal Cannula 3.00 I & O 02/28/18 07:00 Intake Total 3184.5 ml Output Total 875 ml Balance 2309.5 ml Capillary Refill : Less Than 3 SecondsLess Than 3 Seconds General Appearance: No Apparent Distress HEENT: PERRL/EOMI Neck: Full Range of Motion Respiratory: Chest Non Tender, Normal Breath Sounds Cardiovascular: Regular Rate, Rhythm Gastrointestinal: non tender, soft, distended Extremity: Normal Capillary Refill Neurologic/Psychiatric: Alert, Oriented x3 Skin: Normal Color Lymphatic: No Adenopathy Results Lab Laboratory Tests 02/28/18 08:30: White Blood Count 15.3H, Red Blood Count 2.97L, Hemoglobin 8.8L, Hematocrit 26L , Mean Corpuscular Volume 89, Mean Corpuscular Hemoglobin 30, Mean Corpuscular Hemoglobin Concent 34, Red Cell Distribution Width 18.3H, Platelet Count 555H, Mean Platelet Volume 8.8, Sodium Level 121*L, Potassium Level 4.3, Chloride Level 92L, Carbon Dioxide Level 20L, Anion Gap 9, Blood Urea Nitrogen 8, Creatinine 0.68, Estimat Glomerular Filtration Rate > 60, BUN/Creatinine Ratio 12, Glucose Level 84, Calcium Level 8.2L, Corrected Calcium 9.2, Total Bilirubin 2.8H, Aspartate Amino Transf (AST/SGOT) 146H, Alanine Aminotransferase (ALT/SGPT) 36, Alkaline Phosphatase 264H, Ammonia 60H, Total Protein 6.1L, Albumin 2.8L Microbiology 8/27/18 Blood Culture - Final, Complete No growth Assessment/Plan Assessment/Plan Assess & Plan/Chief Complaint metastatic hepatocellular carcinoma. palliative care. will monitor ascites and if becomes symptomatic will proceed with paracentesis. still doing ok but will monitor for worsening ascites. Clinical Quality Measures DVT/VTE Risk/Contraindication: Risk Factor Score Per Nursin RFS Level Per Nursing on Admit: 4+=Very High CAITY COSTA MD Feb 28, 2018 10:41 am
--- NOTE | 2018-02-28 12:47 | Progress Note-Hospitalist ---
Subjective HPI/CC On Admission Date Seen by Provider: Feb 28, 2018 Time Seen by Provider: 10:30 Subjective/Events-last exam Patient the same Hyponatremia slightly improved at 121 with change of IV fluids to normal saline and fluid restricted No family at the bedside and patient is resting Ammonia level 60 Patient seems to be declining consistently Review of Systems Gastrointestinal: Abdominal Pain Neurological: Confusion Objective Exam Vital Signs Vital Signs Date Time Temp Pulse Resp B/P (MAP) Pulse Ox O2 Delivery O2 Flow Rate FiO2 02/28/18 10:39 94 Nasal Cannula 3.00 02/28/18 08:48 96.7 100 20 128/60 (82) 02/22/18 18:10 21 Capillary Refill : Less Than 3 SecondsLess Than 3 Seconds General Appearance: No Apparent Distress, WD/WN, Chronically ill, Thin Respiratory: Lungs Clear, Normal Breath Sounds Cardiovascular: Regular Rate, Rhythm, No Edema Gastrointestinal: Distended Neurologic/Psychiatric: Alert, Disoriented Results/Procedures Lab Laboratory Tests 02/28/18 08:30 Patient resulted labs reviewed. Assessment/Plan Assessment and Plan Assess & Plan/Chief Complaint Per PCP: Hepatocellular carcinoma/cholangiocarcinoma with metastasis and ascites Hyponatremia Pneumonia left lower lobe Anemia Hematemesis versus blood-streaked sputum Alcoholism Plan: Fluid restriction Poor prognosis DNR Diagnosis/Problems Diagnosis/Problems (1) Liver cancer, primary, with metastasis from liver to other site Status: Acute (2) Hyponatremia Status: Acute (3) Left lower lobe pneumonia Status: Acute Qualifiers: Pneumonia type: due to unspecified organism Qualified Codes: J18.1 - Lobar pneumonia, unspecified organism (4) Alcohol abuse Status: Chronic (5) Leukocytosis Status: Acute Qualifiers: Leukocytosis type: leukemoid reaction Qualified Codes: D72.823 - Leukemoid reaction (6) Coagulopathy Status: Acute Clinical Quality Measures DVT/VTE Risk/Contraindication: Risk Factor Score Per Nursin RFS Level Per Nursing on Admit: 4+=Very High REGIS LATHAM DO Feb 28, 2018 12:47
[2018-02-28 15:35] VITALS: BP 124/59
[2018-02-28] MEDS: MELATONIN 3 MG TABLET PO SCH (20:22)
[2018-03-01 00:39] VITALS: BP 121/64
[2018-03-01] MEDS: RT-ALBUTEROL/IPRATROPIUM 3 ML (DUONEB) VIAL INH SCH ×6 (03:11→23:09)
[2018-03-01] MEDS: PIPERACILLIN/TAZO 4.5 GM/NS 100 ML IV SCH ×2 (05:02)
[2018-03-01 05:51] LABS: HEMOGLOBIN 8.6 G/DL (13.3-17.7); MEAN PLATELET VOLUME 8.8 FL (7.4-10.4); RED BLOOD COUNT 2.81 10^6/uL (4.35-5.85); WHITE BLOOD COUNT 15.9 10^3/uL (4.3-11.0)
[2018-03-01] MEDS: CALCIUM CARBONATE 600 MG (CALCARB) TAB PO SCH ×3 (06:03→17:39)
[2018-03-01] MEDS: LACTOBACILLUS Acidoph/Bulgar (LACTINEX/FLORANEX) TAB PO SCH ×3 (06:03→17:39)
[2018-03-01 06:17] LABS: ALANINE AMINOTRANSFERASE 37 U/L (0-55); ALBUMIN 2.8 GM/DL (3.2-4.5); ALKALINE PHOSPHATASE 272 U/L (40-136); BILIRUBIN,TOTAL 2.5 MG/DL (0.1-1.0); BUN/CREATININE RATIO 13; CALCIUM 8.2 MG/DL (8.5-10.1); CARBON DIOXIDE 17 MMOL/L (21-32); CHLORIDE 95 MMOL/L (98-107); CREATININE SERUM 0.61 MG/DL (0.60-1.30); GFR ESTIMATED > 60; POTASSIUM 4.2 MMOL/L (3.6-5.0)
[2018-03-01 06:20] LABS: SODIUM 122 MMOL/L (135-145)
[2018-03-01 06:21] LABS: GLUCOSE 27 MG/DL (70-105)
[2018-03-01] MEDS ORDERED: DEXTROSE 50% 50 ML (IMS) SYR ONE (06:36)
[2018-03-01] MEDS ORDERED: DEXTROSE 10% IV SOLUTION 1,000 ML IV PRN (07:15)
[2018-03-01] MEDS ORDERED: GLUCAGON EMERGENCY 1 MG/KIT IM PRN (07:15)
[2018-03-01 07:26] VITALS: BP 147/75
[2018-03-01] MEDS: NS IV 1000 ML 1,000 ML IV SCH (08:43)
[2018-03-01] MEDS: PANTOPRAZOLE 40 MG (PROTONIX) TAB PO SCH ×2 (10:13→20:40)
--- NOTE | 2018-03-01 10:22 | Progress Note (SOAP) ---
Subjective Date Seen by Provider: Mar 01, 2018 Time Seen by Provider: 09:45 Subjective/Events-last exam Patient seen with Dr. Holt. Patient reports increased SOB since last night. Reports he is more uncomfortable. Tolerating diet. No N/V. No fever/chills. Having BMs. Objective Exam Vital Signs Date Time Temp Pulse Resp B/P (MAP) Pulse Ox O2 Delivery O2 Flow Rate FiO2 03/01/18 07:26 96.5 102 20 147/75 (99) 98 Nasal Cannula 5.00 03/01/18 06:43 91 Nasal Cannula 5.00 03/01/18 00:39 97.4 101 22 121/64 (83) 91 Nasal Cannula 5.00 02/28/18 22:10 92 Nasal Cannula 5.00 02/28/18 19:01 91 Nasal Cannula 4.00 02/28/18 15:35 99.0 107 20 124/59 (80) 94 Nasal Cannula 4.00 02/28/18 14:15 92 Nasal Cannula 3.00 02/28/18 10:39 94 Nasal Cannula 3.00 I & O 03/01/18 07:00 Intake Total 3122.5 ml Output Total 675 ml Balance 2447.5 ml Capillary Refill : Less Than 3 SecondsLess Than 3 Seconds General Appearance: Chronically ill Neck: Full Range of Motion, Normal Inspection, Non Tender, Supple Respiratory: Chest Non Tender, Normal Breath Sounds Cardiovascular: Regular Rate, Rhythm, No Murmur Gastrointestinal: normal bowel sounds, distended Extremity: Normal Capillary Refill, Normal Range of Motion, Swelling (3+) Neurologic/Psychiatric: Alert, Oriented x3 Skin: Normal Color, Warm/Dry Results Lab Laboratory Tests 03/01/18 05:19: White Blood Count 15.9H, Red Blood Count 2.81L, Hemoglobin 8.6L, Hematocrit 25L , Mean Corpuscular Volume 88, Mean Corpuscular Hemoglobin 31, Mean Corpuscular Hemoglobin Concent 35, Red Cell Distribution Width 18.0H, Platelet Count 535H, Mean Platelet Volume 8.8, Sodium Level 122*L, Potassium Level 4.2, Chloride Level 95L, Carbon Dioxide Level 17L, Anion Gap 10, Blood Urea Nitrogen 8, Creatinine 0.61, Estimat Glomerular Filtration Rate > 60, BUN/Creatinine Ratio 13, Glucose Level 27*L, Calcium Level 8.2L, Corrected Calcium 9.2, Total Bilirubin 2.5H, Aspartate Amino Transf (AST/SGOT) 146H, Alanine Aminotransferase (ALT/SGPT) 37, Alkaline Phosphatase 272H, Total Protein 6.0L, Albumin 2.8L 03/01/18 06:55: Glucometer 143H Microbiology 02/22/18 Blood Culture - Final, Complete No growth Assessment/Plan Assessment/Plan Assess & Plan/Chief Complaint A 57 year old male with metastatic hepatocellular carcinoma. palliative care. patient reports becoming more symptomatic, will proceed with a paracentesis. Clinical Quality Measures DVT/VTE Risk/Contraindication: Risk Factor Score Per Nursin RFS Level Per Nursing on Admit: 4+=Very High MARCK BACA ASSEMBLER ERECTOR Mar 01, 2018 10:22
[2018-03-01] MEDS: VANCOMYCIN 1250 MG/NS 250 ML IVPB IV SCH ×2 (11:38)
[2018-03-01] MEDS ORDERED: LIDOCAINE 1% INJ 20 ML 20 ML VIAL ONE (11:47)
[2018-03-01] MEDS ORDERED: ALBUMIN 25% 25 GM/100 ML 100 ML IV ONE (12:00)
[2018-03-01] MEDS ORDERED: fentaNYL INJECTION 100 MCG/2 ML AMP ONE (12:01)
[2018-03-01] MEDS: fentaNYL INJECTION 100 MCG/2 ML AMP IVP PRN ×3 (12:06→22:56)
--- NOTE | 2018-03-01 12:56 | Progress Note-Post Operative ---
Post-Operative Progess Note Surgeon (s)/Veterinary Surgery Technician (s) Surgeon CAITY COSTA MD Veterinary Surgery Technician: none Pre-Operative Diagnosis symptomatic ascites Post-Operative Diagnosis same Procedure & Operative Findings Date of Procedure 03/01/18 Procedure Performed/Findings paracentesis Anesthesia Type CS Estimated Blood Loss Estimated blood loss (mL): minimal Specimens/Packing Specimens Removed none CAITY COSTA MD Mar 01, 2018 12:56
--- NOTE | 2018-03-01 14:26 | OPERATIVE REPORT ---
DATE OF SERVICE: 03/01/2018 ATTENDING PRIMARY CARE PHYSICIAN: Dr. Camp. PREPROCEDURE DIAGNOSIS: Stage IV hepatocellular carcinoma with symptomatic ascites. POSTPROCEDURE DIAGNOSIS: Stage IV hepatocellular carcinoma with symptomatic ascites. PROCEDURE: Paracentesis. SURGEON: Caity Costa MD ANESTHESIA: Local. ESTIMATED BLOOD LOSS: Minimal. FINDINGS: A straw yellow transudative fluid. DISPOSITION: The patient tolerated the procedure well. INDICATIONS: The patient is a 57-year-old male who was recently diagnosed with a stage IV hepatocellular carcinoma. He had developed abdominal ascites secondary to the carcinoma from increased portal pressure and has undergone paracentesis in the past. Since being admitted, he has had worsening abdominal distention, and this has impaired his respirations. The abdomen was prepped and draped in a standard surgical fashion. Before the procedure, the abdomen was marked by ultrasound sonography. The skin, subcutaneous tissue, muscle layers and peritoneal lining was anesthetized using 1% lidocaine. A vertical skin incision was made using a 11-blade. The trocar and catheter were then introduced drawing of straw yellow transudative fluid. The catheter was then advanced over the trocar without any resistance. The catheter was then connected to tubing and gravity drainage bag. The catheter was then cleaned and covered with sterile gauze followed by a large Op-Site. The patient tolerated the procedure well. We will continue with drainage on an intermittent basis and if he does become intravascularly hypovolemic, proceed with 25% albumin infusion. Job ID: [id number] DocumentID: [id number] Dictated Date: 03/01/2018 13:00:29 [employer] Round Operator Date: 03/01/2018 14:26:16 Dictated By: CAITY COSTA MD
[2018-03-01] MEDS: HYDROcodone/APAP 5 MG/325 MG (LORTAB) TAB PO PRN ×2 (14:49→20:41)
[2018-03-01 16:30] VITALS: BP 134/66
[2018-03-01] MEDS: MELATONIN 3 MG TABLET PO SCH (20:41)
[2018-03-02] VITALS: BP 124/58
[2018-03-02] MEDS: fentaNYL INJECTION 100 MCG/2 ML AMP IVP PRN ×4 (00:30→18:42)
[2018-03-02] MEDS: NS IV 1000 ML 1,000 ML IV SCH (00:31)
[2018-03-02] MEDS: RT-ALBUTEROL/IPRATROPIUM 3 ML (DUONEB) VIAL INH SCH ×6 (02:16→22:09)
[2018-03-02] MEDS: DEXTROSE 50% 50 ML (IMS) SYR IV PRN ×2 (03:42→05:30)
[2018-03-02 06:04] LABS: HEMOGLOBIN 8.5 G/DL (13.3-17.7); MEAN PLATELET VOLUME 8.5 FL (7.4-10.4); RED BLOOD COUNT 2.83 10^6/uL (4.35-5.85); RED CELL DISTRIBUTION WIDTH 18.1 % (10.0-14.5); WHITE BLOOD COUNT 14.4 10^3/uL (4.3-11.0)
[2018-03-02] MEDS: LACTOBACILLUS Acidoph/Bulgar (LACTINEX/FLORANEX) TAB PO SCH ×3 (06:21→18:41)
[2018-03-02] MEDS: CALCIUM CARBONATE 600 MG (CALCARB) TAB PO SCH ×3 (06:21→18:42)
[2018-03-02 06:31] LABS: ALANINE AMINOTRANSFERASE 30 U/L (0-55); ALBUMIN 2.8 GM/DL (3.2-4.5); ALKALINE PHOSPHATASE 240 U/L (40-136); BILIRUBIN,TOTAL 2.3 MG/DL (0.1-1.0); BUN/CREATININE RATIO 13; CALCIUM 8.3 MG/DL (8.5-10.1); CARBON DIOXIDE 20 MMOL/L (21-32); CHLORIDE 96 MMOL/L (98-107); GFR ESTIMATED > 60; GLUCOSE 64 MG/DL (70-105); POTASSIUM 4.5 MMOL/L (3.6-5.0); TOTAL PROTEIN 5.6 GM/DL (6.4-8.2)
[2018-03-02 06:41] LABS: SODIUM 122 MMOL/L (135-145)
[2018-03-02 08:00] VITALS: BP 116/56
[2018-03-02] MEDS ORDERED: D5 NS 1000 ML IV SOLUTION 1,000 ML IV ONE (08:58)
[2018-03-02] MEDS: D5 NS 1000 ML IV SOLUTION 1,000 ML IV SCH ×2 (09:09→22:27)
--- NOTE | 2018-03-02 09:14 | Progress Note ---
Subjective Date Seen by Provider: Mar 02, 2018 Time Seen by Provider: 08:50 Subjective/Events-last exam PT IS A 57 Y/O MALE WHO IS KNOWN TO ME FROM THIS HOSPITALIZATION. NURSING REPORTS THAT HE HAD SEVERAL LOW MORNING BLOOD GLUCOSE READINGS AND WAS PLACED ON D10W PER PROTOCOL. STAFF REPORTS THAT PT PULLED OUT THE PARACENTESIS DRAIN YESTERDAY AND NOW HAS A COLOSTOMY BAG IN PLACE OVER THE DRAIN SITE. PT REPORTS THAT HE IS FEELING POORLY, WOULD RATHER BE HOME - THE BED AND CHAIR ARE UNCOMFORTABLE. PT'S REPORTS THAT SHE SEES THAT HE IS DECLINING AND IS WONDERING WHAT THE BEST CHOICE IS FOR HIM AT THIS POINT...SHE IS CONSIDERING HOSPICE HE TOLD HER LAST NIGHT THAT HE IS JUST TIRED AND DOES NOT FEEL LIKE HE CAN CONTINUE LIKE THIS ANY MORE. Review of Systems General: Fatigue, Malaise Pulmonary: Dyspnea Cardiovascular: No: Chest Pain Gastrointestinal: Abdominal Pain Musculoskeletal: back pain Neurological: Weakness, Confusion (INTERMITTENT) Objective Exam Last Set of Vital Signs Vital Signs Date Time Temp Pulse Resp B/P (MAP) Pulse Ox O2 Delivery O2 Flow Rate FiO2 03/02/18 06:55 Nasal Cannula 5.00 03/02/18 00:00 97.4 101 21 124/58 (80) 91 Capillary Refill : Less Than 3 SecondsLess Than 3 Seconds I&O Intake and Output 03/02/18 00:00 Intake Total 2847.5 ml Output Total 5675 ml Balance -2827.5 ml Intake Oral 1385 ml IV Total 1462.5 ml Output Urine Total 1125 ml Drainage Total 4550 ml # Voids 1 # Urine Diapers 2 # Bowel Movements 3 General: Alert, Oriented X3, Cooperative HEENT: PERRLA Neck: Supple Lungs: Clear to Auscultation (UPPER LOBES CLEAR, LOWER LOBES WITH FAINT CRAKCLES) Heart: Regular Rate, Other (EDEMA BILATERAL LOWER EXTREMITIES) Abdomen: Other (DECREASED BOWEL SOUNDS WITH TENDER EDGE OF LIVER ACROSS ENTIRE UPPER ABDOMEN, INCREASED FLUID WAVE) Skin: Other (JAUNDICE) Psych/Mental Status: Mental Status NL, Mood NL Results Lab Laboratory Tests 03/02/18 02:31: Glucometer 29*L 03/02/18 03:30: Glucometer 43*L 03/02/18 05:19: Glucometer 54*L 03/02/18 05:34: White Blood Count 14.4H, Red Blood Count 2.83L, Hemoglobin 8.5L, Hematocrit 25L , Mean Corpuscular Volume 89, Mean Corpuscular Hemoglobin 30, Mean Corpuscular Hemoglobin Concent 34, Red Cell Distribution Width 18.1H, Platelet Count 521H, Mean Platelet Volume 8.5, Sodium Level 122*L, Potassium Level 4.5, Chloride Level 96L, Carbon Dioxide Level 20L, Anion Gap 6, Blood Urea Nitrogen 8, Creatinine 0.60, Estimat Glomerular Filtration Rate > 60, BUN/Creatinine Ratio 13, Glucose Level 64L, Calcium Level 8.3L, Corrected Calcium 9.3, Total Bilirubin 2.3H, Aspartate Amino Transf (AST/SGOT) 132H, Alanine Aminotransferase (ALT/SGPT) 30, Alkaline Phosphatase 240H, Total Protein 5.6L, Albumin 2.8L 03/02/18 06:28: Glucometer 66L 03/02/18 08:43: Glucometer 53*L Microbiology 02/22/18 Blood Culture - Final, Complete No growth Assessment/Plan Assessment/Plan Assess & Plan/Chief Complaint HYPONATREMIA PNEUMONIA MIXED HEPATOCELLULAR CARCINOMA CHOLANGIOCARCINOMA HYPERTENSION ANEMIA UNCERTAIN IF HEMATEMESIS VERSUS BLOOD STREAKED SPUTUM ASCITES LIVER FAILURE HX OF ALCOHOLISM HX OF PANCREATITIS HX OF TOBACCOISM EDEMA CONSTIPATION HYPONATREMIA - FAMILY AWARE THAT AT THIS POINT WITH HIS FURTHER DECLINE, WE NEED TO ANTICIPATE THAT WE WILL NOT BE ABLE TO MAKE AN IMPROVEMENT IN HIS HYPONATREMIA AND TO ANTICIPATE FURTHER DECLINE AND CONFUSION MIXED HEPATOCELLULAR CARCINOMA - AND CHOLANGIOCARCINOMA - DISCUSSED WITH PT AND HIS - I HAVE TALKED TO DR. KUMAR 02/26/18 - SHE STATES THAT SHE WANTS TO CONTINUE TO HOLD THE NEXAVAR DUE TO HIS PNEUMONIA AND CURRENT ILLNESS. SHE REPORTS THAT DUE TO THE POTENTIAL TOXICITY AND HOW HARD IT IS ON THE LIVER, SHE WANTS TO WAIT UNTIL THE OTHER TREATMENTS FOR HIS ACUTE ILLNESS ARE STOPPED BEFORE FURTHER TAXING HIS BODY. AFTER A PROLONGED DISCUSSION - THE FAMILY HAS DECIDED TO PURSUE HOSPICE, THEY WILL LET ME KNOW THE GROUP THAT THEY WOULD LIKE FOR HOSPICE CARE PNEUMONIA - WILL STOP ANTIBIOTICS HE IS NOT IMPROVING - BUT WILL HOLD OFF UNTIL THEY MAKE A FINAL DECISION ON HOSPICE HYPERTENSION - MONITOR BLOOD PRESSURE AT THIS TIME I WILL HOLD OFF ON ANY MEDICATIONS. ANEMIA - STABLE ASCITES - WITH LIVER FAILURE DUE TO METASTATIC CANCER - DISCUSSED WITH DR. 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 WILL GENTLY HYDRATE PT FOR TREATMENT OF HYPONATREMIA BUT CLOSELY WATCH HIS ASCITES WITH DR. ARIAS AVAILABLE FOR FURTHER PARACENTESIS SHOULD IT BE NEEDED. EDEMA - GIVE DOSE OF LASIX TODAY. HX OF ALCOHOLISM - SUPPORTIVE CARE HX OF PANCREATITIS HX OF TOBACCOISM DVT PROPHYLAXIS WITH SCD'S - HOLD OFF ON LOVENOX FOR NOW - GI PROPHYLAXIS WITH PPI PT IS DNR/DNI Clinical Quality Measures Admission Status Admission Dx HYPONATREMIA PNEUMONIA MIXED HEPATOCELLULAR CARCINOMA CHOLANGIOCARCINOMA HYPERTENSION ANEMIA UNCERTAIN IF HEMATEMESIS VERSUS BLOOD STREAKED SPUTUM ASCITES LIVER FAILURE HX OF ALCOHOLISM HX OF PANCREATITIS HX OF TOBACCOISM DVT/VTE Risk/Contraindication: Risk Factor Score Per Nursin RFS Level Per Nursing on Admit: 4+=Very High PRAKASH JERRY MD Mar 02, 2018 09:13
[2018-03-02] MEDS ORDERED: FUROSEMIDE 40 MG/4 ML INJ (LASIX) IVP NR (09:23)
[2018-03-02] MEDS: PANTOPRAZOLE 40 MG (PROTONIX) TAB PO SCH ×2 (10:02→20:41)
[2018-03-02] MEDS: LORazepam 0.5 MG (ATIVAN) TABLET PO PRN ×2 (10:02→20:47)
[2018-03-02 16:00] VITALS: BP 120/56
[2018-03-02] MEDS: MELATONIN 3 MG TABLET PO SCH (20:41)
[2018-03-02] MEDS: HYDROcodone/APAP 5 MG/325 MG (LORTAB) TAB PO PRN (22:43)
[2018-03-03] VITALS: BP 110/57
[2018-03-03] MEDS: RT-ALBUTEROL/IPRATROPIUM 3 ML (DUONEB) VIAL INH SCH ×3 (01:39→10:05)
[2018-03-03] MEDS: fentaNYL INJECTION 100 MCG/2 ML AMP IVP PRN ×2 (02:01→05:14)
[2018-03-03] MEDS: HYDROcodone/APAP 5 MG/325 MG (LORTAB) TAB PO PRN (03:09)
[2018-03-03] MEDS: LACTOBACILLUS Acidoph/Bulgar (LACTINEX/FLORANEX) TAB PO SCH ×2 (05:31→11:22)
[2018-03-03] MEDS: CALCIUM CARBONATE 600 MG (CALCARB) TAB PO SCH ×2 (06:10→11:23)
[2018-03-03 06:19] LABS: ALANINE AMINOTRANSFERASE 34 U/L (0-55); ALBUMIN 2.8 GM/DL (3.2-4.5); ALKALINE PHOSPHATASE 261 U/L (40-136); BILIRUBIN,TOTAL 2.1 MG/DL (0.1-1.0); BUN/CREATININE RATIO 13; CALCIUM 8.4 MG/DL (8.5-10.1); CARBON DIOXIDE 16 MMOL/L (21-32); CHLORIDE 95 MMOL/L (98-107); CREATININE SERUM 0.72 MG/DL (0.60-1.30); GFR ESTIMATED > 60; GLUCOSE 101 MG/DL (70-105); MAGNESIUM 1.6 MG/DL (1.8-2.4); POTASSIUM 4.2 MMOL/L (3.6-5.0); TOTAL PROTEIN 5.9 GM/DL (6.4-8.2)
[2018-03-03 06:26] LABS: SODIUM 121 MMOL/L (135-145)
[2018-03-03 08:49] VITALS: BP 134/70
[2018-03-03] MEDS: PANTOPRAZOLE 40 MG (PROTONIX) TAB PO SCH (08:49)
[2018-03-03] MEDS: D5 NS 1000 ML IV SOLUTION 1,000 ML IV SCH (08:50)
--- NOTE | 2018-03-03 09:24 | Discharge Summary ---
Diagnosis/Chief Complaint Date of Admission Feb 22, 2018 at 15:00 Date of Discharge Admission Diagnosis Admission Diagnosis HYPONATREMIA PNEUMONIA MIXED HEPATOCELLULAR CARCINOMA CHOLANGIOCARCINOMA HYPERTENSION ANEMIA UNCERTAIN IF HEMATEMESIS VERSUS BLOOD STREAKED SPUTUM ASCITES LIVER FAILURE HX OF ALCOHOLISM HX OF PANCREATITIS HX OF TOBACCOISM EDEMA CONSTIPATION Discharge Diagnosis HYPONATREMIA PNEUMONIA MIXED HEPATOCELLULAR CARCINOMA CHOLANGIOCARCINOMA HYPERTENSION ANEMIA UNCERTAIN IF HEMATEMESIS VERSUS BLOOD STREAKED SPUTUM ASCITES LIVER FAILURE HX OF ALCOHOLISM HX OF PANCREATITIS HX OF TOBACCOISM EDEMA CONSTIPATION Reason Hospital Visit PT IS A 57 Y/O MALE WHO WAS LAST SEEN IN MY OFFICE IN 2015. HE REPORTEDLY WAS SEEN AT URGENT CARE AT THE END OF DECEMBER, BEGINNING OF JANUARY AND WAS SENT FOR A CT SCAN WHICH SHOWED A TREMENDOUS AMOUNT OF TUMOR BURDEN IN HIS ABDOMEN AND RIGHT LUNG. HIS REPORTS THAT AFTER THE BIOPSY HE WAS SEEN BY DR. STRICKLAND AND THEN THEY GOT A SECOND OPINION AT WHO REPORTED THAT HE WOULD BE A CANDIDATE FOR NEXAVAR AND POSSIBLE IMMUNOTHERAPY. Discharge Summary Discharge Physical Examination Allergies: Coded Allergies: No Known Drug Allergies (Unverified , 01/23/10) Vitals & I&Os General Appearance: Alert, Oriented X3, Cooperative HEENT: PERRLA Respiratory: Clear to Auscultation (UPPER LOBES CLEAR, LOWER LOBES WITH FAINT CRAKCLES) Cardiovascular: Regular Rate, Other (EDEMA BILATERAL LOWER EXTREMITIES) Abdominal: Other (DECREASED BOWEL SOUNDS WITH TENDER EDGE OF LIVER ACROSS ENTIRE UPPER ABDOMEN, INCREASED FLUID WAVE) Skin: Other (JAUNDICE) Psych/Mental Status: Mental Status NL, Mood NL Hospital Course HYPONATREMIA PNEUMONIA MIXED HEPATOCELLULAR CARCINOMA CHOLANGIOCARCINOMA HYPERTENSION ANEMIA UNCERTAIN IF HEMATEMESIS VERSUS BLOOD STREAKED SPUTUM ASCITES LIVER FAILURE HX OF ALCOHOLISM HX OF PANCREATITIS HX OF TOBACCOISM EDEMA CONSTIPATION MIXED HEPATOCELLULAR CARCINOMA - AND CHOLANGIOCARCINOMA - AFTER FURTHER DISCUSSION YESTERDAY AND TODAY - THE FAMILY HAS DECIDED UPON COMFORT CARE AT HOME AND WE WILL SEND [facility] HOME WITH HOSPICE AND ANTICIPATE PT TO FURTHER DECLINE AND MOST LIKELY WILL PASS AWAY IN THE NEXT 1-2 WEEKS FROM DISCHARGE, IF NOT SOONER DUE TO HIS WORSENING ASCITES, AND DYSPNEA. Pending Labs Discharge Condition at discharge DECLINE AND DEMISE ANTICIPATED Instructions to patient/family Please see electronic discharge instructions given to patient. Discharge Medications Reviewed and agree with Discharge Medication list on patient's Discharge Instruction sheet Clinical Quality Measures DVT/VTE Risk/Contraindication: Risk Factor Score Per Nursin RFS Level Per Nursing on Admit: 4+=Very High PRAKASH JERRY MD Mar 03, 2018 09:24
[2018-03-03] MEDS ORDERED: MORP100S3 PO (09:30)
[2018-03-03] MEDS ORDERED: LORA0.5T PO (09:30)
[2018-03-03] MEDS ORDERED: LORA2ORA PO (09:30)
[2018-03-03] MEDS ORDERED: HYDR-3812 PO (09:30)
--- NOTE | 2018-03-03 09:32 | Discharge Inst-Complex ---
PDI Med Rec & Follow Up Appt. New Medications: Lorazepam (Lorazepam Intensol) 2 Mg/1 Ml Oral.conc 2 MG PO Q2H PRN for AGITATION, #30 ML Morphine Sulfate (Morphine Sulfate Concentrate 20mg/ml) 100 Mg/5 Ml Solution 10 MG PO Q1HR PRN for PAIN, #30 ML Lorazepam (Lorazepam) 0.5 Mg Tablet 0.5 MG PO Q4H PRN for ANXIETY, #60 TAB Continued Medications: Budesonide/Formoterol Fumarate (Symbicort 160-4.5 Mcg Inhaler) 10.2 Gm Hfa.aer.ad 2 PUFF IH BID, INHALER Docusate Sodium (Colace) 100 Mg Capsule 100 MG PO BID PRN for CONSTIPATION-1ST LINE, CAP Hydrocodone/Acetaminophen (Hydrocodone-Acetamin 5-325 mg) 1 Each Tablet 0.5-1 TAB PO Q4H PRN for PAIN-MODERATE, #60 TAB (This prescription has been renewed) Discontinued Medications: Alprazolam (Alprazolam) 0.25 Mg Tablet 0.125-0.25 MG PO HS PRN for ANXIETY, TAB Amlodipine Besylate (Amlodipine Besylate) 10 Mg Tablet 10 MG PO DAILY, TAB Sorafenib Tosylate (Nexavar) 200 Mg Tab 200 MG PO Q72H, TAB HAS NOT STARTED YET; WAITING FOR IT TO ARRIVE Zolpidem Tartrate (Ambien) 5 Mg Tablet 5 MG PO HS PRN for SLEEP, TAB Prescription: RX on Chart Activity, Diet and PDI Discharge Diet: Other Diet (diet as tolerated) Diet for 24 Hours: No Alcohol Driving Instructions: No Driving/Refer to Symptoms to Reoprt to : Pain Increased For Problems or Questions: Contact Your Physician PRAKASH JERRY MD Mar 03, 2018 09:32
--- NOTE | 2018-03-03 09:51 | Progress Note ---
Subjective Date Seen by Provider: Mar 02, 2018 Time Seen by Provider: 15:30 Subjective/Events-last exam Patient resting in bed. He does open his eyes to discuss considering low. Patient has decided to go on hospice. Discussed with patient's as well. Pain controlled. Wanting to rest. Denies any new complaints. Had paracentesis yesterday. Objective Exam Vital Signs Date Time Temp Pulse Resp B/P (MAP) Pulse Ox O2 Delivery O2 Flow Rate FiO2 03/03/18 08:49 96.6 106 18 134/70 (91) 98 Nasal Cannula 5.00 03/03/18 08:00 98 Nasal Cannula 5.00 03/03/18 06:47 92 Nasal Cannula 5.00 03/03/18 00:00 98.1 104 20 110/57 (74) 92 Nasal Cannula 5.00 03/02/18 22:11 96 Nasal Cannula 5.00 03/02/18 20:45 Nasal Cannula 3.00 03/02/18 18:34 96 Nasal Cannula 5.00 03/02/18 16:00 98.3 109 16 120/56 (77) 97 Nasal Cannula 5.00 03/02/18 10:32 96 Nasal Cannula 5.00 I & O 03/03/18 06:59 Intake Total 1610 ml Output Total 675 ml Balance 935 ml Capillary Refill : Less Than 3 SecondsLess Than 3 Seconds General Appearance: Chronically ill HEENT: PERRL/EOMI Neck: Full Range of Motion, Normal Inspection, Non Tender, Supple Respiratory: Chest Non Tender, Normal Breath Sounds Cardiovascular: Regular Rate, Rhythm Gastrointestinal: normal bowel sounds, distended Extremity: Normal Capillary Refill, Normal Range of Motion, Swelling (3+) Neurologic/Psychiatric: Alert, Oriented x3 Skin: Normal Color, Warm/Dry Lymphatic: No Adenopathy Results Lab Laboratory Tests 03/03/18 05:40: Sodium Level 121*L, Potassium Level 4.2, Chloride Level 95L, Carbon Dioxide Level 16L, Anion Gap 10, Blood Urea Nitrogen 9, Creatinine 0.72, Estimat Glomerular Filtration Rate > 60, BUN/Creatinine Ratio 13, Glucose Level 101, Calcium Level 8.4L, Corrected Calcium 9.4, Magnesium Level 1.6L, Total Bilirubin 2.1H, Aspartate Amino Transf (AST/SGOT) 142H, Alanine Aminotransferase (ALT/SGPT) 34, Alkaline Phosphatase 261H, Total Protein 5.9L, Albumin 2.8L Microbiology 02/22/18 Blood Culture - Final, Complete No growth Assessment/Plan Assessment/Plan Assessment/Plan Hepatocellular carcinoma/cholangiocarcinoma with metastasis and ascites Hyponatremia Pneumonia left lower lobe Anemia Hematemesis versus blood-streaked sputum Alcoholism Patient is going on Hospice. Will be available if needed. Will sign off at this time. Clinical Quality Measures DVT/VTE Risk/Contraindication: Risk Factor Score Per Nursin RFS Level Per Nursing on Admit: 4+=Very High SOHAM ARIAS DO Mar 03, 2018 09:51
[2018-03-03 13:20] VITALS: BP 134/70
== END 2018-03-03 13:20 | disposition hospice, home (50) | DRG 194 ==
LOC: EDUNIT# 12:29 → ER 12:30 → 4TH 15:00
PROVIDERS: ADMIT Family Medicine; ATTEND Family Medicine
PROC: 0W9G30Z Drainage of Peritoneal Cavity with Drainage Device, Percutaneous Approach (ICD-10-PCS; principal; 2018-03-01)
DX: J18.9 Pneumonia, unspecified organism (principal); E87.1 Hypo-osmolality and hyponatremia; C22.0 Liver cell carcinoma; R18.0 Malignant ascites; C78.6 Secondary malignant neoplasm of retroperitoneum and peritoneum; C78.00 Secondary malignant neoplasm of unspecified lung; K92.0 Hematemesis; Z66 Do not resuscitate; Z51.5 Encounter for palliative care; R64 Cachexia; J91.8 Pleural effusion in other conditions classified elsewhere; K76.6 Portal hypertension; I10 Essential (primary) hypertension; H91.90 Unspecified hearing loss, unspecified ear; K72.90 Hepatic failure, unspecified without coma; D50.0 Iron deficiency anemia secondary to blood loss (chronic); F10.20 Alcohol dependence, uncomplicated; Z87.891 Personal history of nicotine dependence; Z87.19 Personal history of other diseases of the digestive system; R32 Unspecified urinary incontinence; K59.00 Constipation, unspecified
CPT/HCPCS: 36415; 71046; 76604; 76705; 80053; 80202; 82140; 82607; 82728; 82746; 82962; 83540; 83605; 83735; 85007; 85025; 85027; 85610; 86850; 86900; 86901; 87040; 94640; 94664; 94760; 96365